=== PATIENT | female | born 1955 | race Caucasian/White ===

== ENCOUNTER 2022-05-13 10:51 | Outpatient (CLI) | payer OTHER, SELFPAY ==
--- OUTSIDE RECORDS SUMMARY | 2022-04-10 09:02 | XMS_ITS | Continuity of Care Document ---
:1955 Author Care Team Providers Name Role Phone MD Zaina Rivera Primary Care Physician MD Judy Perea Admitting Physician Allergies, Adverse Reactions, Alerts Allergen Type Severity Reaction Last Verified Status Updated Adhesive Allergy Mild rash July Yes Active 2020 Penicillin v Allergy Mild rash July Yes Active 2020 Tetanus toxoid Allergy Unknown auto immune July Yes Act anam 2020 Lisinopril Allergy Moderate cough July Yes Active 2020 Sulfa drugs Allergy Mild rash July Yes Active 2020 Social History Smoking Status Status Start Date End Date Date of Observat ion Never smoked tobacco July 5:49pm (finding) Additional Data Assigned Sex Female Problems Active Problems Medical Problem Onset Date Status Appendicitis Active Hypertension Active COVID-19 long hauler Active Obesity Active Perforated appendicitis Active Abdominal pain Active S/P laparoscopic appendectomy Active Medications Medication Status Dose Units Route Directions Qty Days Start End Ins tructions Date Date Acetaminophen Active 1 TAB PO Every 4 06 August /Hydrocodone Hours as Bitart needed 2020 (Hydrocodone- 4:37pm Acetaminophen ) 5 Mg/325 Mg TAB Allopurinol Active 100 MG PO Daily taperin g up to 300mg daily Aspirin Active 81 MG PO Daily Fluoxetine Active 40 MG PO Daily Hcl (Fluoxetine Hydrochloride ) 20 Mg CAP Gabapentin Active 600 MG PO Three Times A Day Hyoscyamine Active 1-2 TAB SL Every -6 06 August P O/SL Sulfate Hours as , for abdom inal cramping needed 2020 8:41pm Losartan Active 100 MG PO Daily Potassium Metoprolol Active 25 MG PO Daily Succinate (Metoprolol Succinate Er) 25 Mg TABCR Multivitamins Active 1 TAB PO Daily (Multivitamin /Minerals) TAB Chlorthalidon Disconti 25 MG PO Octobe e nued r 2020 8:27am Cyclobenzapri Disconti 1 TABLET PO Three Times 20 Oc ugo PRN MUSCLE ne Hcl nued A Day r 9, SPASM (Flexeril) 10 2020 Mg TAB 8:27am Metoprolol Disconti 50 MG PO Daily 30 Octobe Succinate nued r 9, (Toprol Xl) 2020 50 Mg TABCR 8:27am Naproxen Disconti 500 MG PO Octobe (Naprosyn) nued r 9, 500 Mg TAB 2020 8:27am Oxycodone-Asp Disconti 1 EA PO Octobe irin nued r 9, (Percodan) 1 2020 Ea TAB 8:27am Valsartan Disconti 40 MG PO Octobe (Diovan) 40 nued r 9, Mg TAB 2020 8:27am Advance Directives Advance Directive Response Recorded Date/Time Has patient completed a No July 31 5:49pm Health Care Directive? Insurance Providers Guarantor Eliana Naranjo Address [id number] [facility] [address] Contact Info. Home Phone: Payer Policy Id Coverage Id Subscriber's Subscriber Id Effective E xpiration Name Date Date Blue [id number] Eliana Naranjo [id number] [facility] [id number] Plan of Treatment Future Tests Future scheduled test information is unavailable Pending Tests Pending diagnostic test information is unavailable Future Visits Future appointment information is unavailable Referrals to Other Providers Reason for Referral Start Provider Provider Contact Provider Address Referral Date Information Eula Rivera Phone: [facility] Debbie Mahajan MD [address] [place] [address] [facility] [phone] Future Procedures Future procedure information is unavailable Future Medications Future medication information is unavailable Patient Instructions Ciprofloxacin (By mouth) Hydrocodone/Acetaminophen (By mouth) Metronidazole (By mouth) Laparoscopic Appendectomy (DC)
--- NOTE | 2022-05-13 11:30 | CRLHL7_ITS ---
For Patients: As a result of the Cures Act, medical imaging exams and procedure reports are released immediately into your electronic medical record. You may view this report before your referring provider. If you have questions, please contact your health care provider. BILATERAL MAMMOGRAM WITH COMPUTER-AIDED DETECTION AND TOMOSYNTHESIS TECHNIQUE: CC and MLO views were obtained. These mammographic images have been obtained using full-field digital technique. These mammographic images were interpreted with the benefit of computer-aided detection. Breast tomosynthesis was used in this interpretation. COMPARISON FILM: 04/24/21, 10/19/19, 08/02/18. FINDINGS: The breasts are heterogeneously dense, which may obscure small masses. IMPRESSION: There is no radiographic evidence for malignancy. ASSESSMENT: BI-RADS Category 2: Benign RECOMMENDATION: Routine screening mammogram in 1 year. A lay language report of this examination will be provided to the patient. FLAVIA THAKKAR M.D. Diagnostic/Nuclear Medicine Radiologist [email or web address] Transcribed: 4:[address]/Dictated by: Flavia Thakkar MD @ 05/14/2022 8:47:00 AM (Electronically Signed)
== END 2022-05-13 10:52 | disposition home or self-care (01) ==
LOC: MAMMO 10:53
PROVIDERS: Visit Provider Family Medicine
DX: Z12.31 Encounter for screening mammogram for malignant neoplasm of breast (principal); R92.8 Other abnormal and inconclusive findings on diagnostic imaging of breast
CPT/HCPCS: 77063; 77067

== ENCOUNTER 2022-07-15 10:45 | Outpatient (RCR) | payer OTHER, SELFPAY | END 2023-01-11 23:59 | disposition home or self-care (01) | LOC: CCIC 10:45 | PROVIDERS: Visit Provider Internal Medicine Hematology & Oncology | DX: Z15.01 Genetic susceptibility to malignant neoplasm of breast (principal); Z79.810 Long term (current) use of selective estrogen receptor modulators (SERMs) | CPT/HCPCS: 99202; 99205 ==

== ENCOUNTER 2022-10-26 07:00 | Outpatient (CLI) | payer OTHER, SELFPAY ==
--- NOTE | 2022-10-26 07:15 | CRLHL7_ITS ---
For Patients: As a result of the Century Cures Act, medical imaging exams and procedure reports are released immediately into your electronic medical record. You may view this report before your referring provider. If you have questions, please contact your health care provider. BILATERAL BREAST MRI WITHOUT AND WITH GADOLINIUM, 10/26/2022 CLINICAL HISTORY: At increased risk for breast cancer due to a family history of breast cancer in her mother diagnosed at age 60 and grandmother in her 60s. No current breast related concerns. INDICATION FOR BREAST MRI: High-risk screening breast MRI. COMPARISON STUDIES: Mammograms 05/13/2022 and 04/24/2021. No prior breast MRIs are available for comparison. CONTRAST: 15 mL dotarem. TECHNIQUE: The patient was positioned prone using a breast coil. Multiple imaging sequences were obtained using 1-1.5 mm thick slices with no gap. The image sequences include T2-weighted STIR in the axial plane, T1-weighted nonfat-saturated gradient echo in the axial plane, pre- and post-contrast T1-weighted FLASH 3D with fat suppression in the axial plane, and T1-weighted FLASH high resolution 3D with fat suppression in the sagittal plane. Image post-processing was performed on a Augment workstation. Complex 3D rendering including maximum intensity projections (MIPS) and volumetric renderings were obtained to optimize visualization of the extent of pathology and relationship to the nipple, skin, and chest wall. This aids in determining feasibility of breast conservation surgery. Subtraction, multiplanar reconstruction, mean curve determination, and angiogenesis mapping were also performed. The study was technically adequate. FINDINGS: Amount of Fibroglandular Tissue: Scattered fibroglandular tissue. Breast Background Enhancement: Moderate. RIGHT Breast: There is no suspicious mass or enhancement within the breast. LEFT Breast: There is no suspicious mass or enhancement within the breast. Lymph Nodes: No abnormal morphology lymph nodes. IMPRESSIONS AND RECOMMENDATIONS: 1. No MRI evidence of malignancy in either breast. 2. Annual screening mammography is recommended. If clinically indicated, continued screening breast MRI may also be performed, staggered at six-month intervals with screening mammography. BI-RADS Category 1: Negative Dictated by Sakshi Sanchez MD @ 11/03/2022 9:21:06 AM JR/Dictated by: Sakshi Sanchez MD @ 11/03/2022 9:21:00 AM (Electronically Signed)
== END 2022-10-26 07:01 | disposition home or self-care (01) ==
LOC: MRI 07:01
PROVIDERS: PCP Family Medicine; Visit Provider Surgery
DX: Z12.31 Encounter for screening mammogram for malignant neoplasm of breast (principal); Z15.01 Genetic susceptibility to malignant neoplasm of breast
CPT/HCPCS: 77049; A9575

== ENCOUNTER 2023-01-18 14:34 | Outpatient (RCR) | payer OTHER, SELFPAY | END 2023-07-17 23:59 | disposition home or self-care (01) | LOC: CCIC 14:34 | PROVIDERS: PCP Family Medicine; Visit Provider Internal Medicine Hematology & Oncology | DX: Z15.01 Genetic susceptibility to malignant neoplasm of breast (principal); Z79.810 Long term (current) use of selective estrogen receptor modulators (SERMs) | CPT/HCPCS: 99212; 99213 ==

== ENCOUNTER 2023-04-05 13:17 | Outpatient (CLI) | payer OTHER, SELFPAY | END 2023-04-05 13:18 | disposition home or self-care (01) | LOC: NFLDUCREF 13:23 | PROVIDERS: PCP Family Medicine; Visit Provider Nurse Practitioner Family | DX: Z11.9 Encounter for screening for infectious and parasitic diseases, unspecified (principal); W57.XXXA Bitten or stung by nonvenomous insect and other nonvenomous arthropods, initial encounter | CPT/HCPCS: 86618 ==

== ENCOUNTER 2023-05-19 11:18 | Outpatient (CLI) | payer OTHER, SELFPAY ==
--- NOTE | 2023-05-19 11:30 | CRLHL7_ITS ---
For Patients: As a result of the Century Cures Act, medical imaging exams and procedure reports are released immediately into your electronic medical record. You may view this report before your referring provider. If you have questions, please contact your health care provider. BILATERAL SCREENING MAMMOGRAM WITH COMPUTER-AIDED DETECTION AND TOMOSYNTHESIS TECHNIQUE: CC and MLO views were obtained. These mammographic images have been obtained using full-field digital technique. These mammographic images were interpreted with the benefit of computer-aided detection. Breast Tomosynthesis was used in this interpretation. COMPARISON FILM: 05/13/22, 04/24/21, 10/19/19. FINDINGS: The breasts are heterogeneously dense, which may obscure small masses IMPRESSION: There is no radiographic evidence for malignancy. ASSESSMENT: BI-RADS Category 2: Benign RECOMMENDATION: Routine screening mammogram in 1 year. A lay language report of this examination will be provided to the patient. Tigre Hankins M.D. Diagnostic Radiologist [email or web address] DSM/lou PT/Dictated by: Tigre Hankins MD @ 05/19/2023 12:02:00 PM (Electronically Signed)
== END 2023-05-19 11:19 | disposition home or self-care (01) ==
LOC: MAMMO 11:20
PROVIDERS: PCP Family Medicine; Visit Provider Surgery
DX: Z12.31 Encounter for screening mammogram for malignant neoplasm of breast (principal); R92.2 Inconclusive mammogram
CPT/HCPCS: 77063; 77067

== ENCOUNTER 2023-10-14 06:49 | Emergency (ER) | payer OTHER, SELFPAY ==
[2023-10-14 06:53] VITALS: BP 176/101; PULSE 85; RESP 20; TEMP 36.8; O2SAT 99; BMI 44.3
--- NOTE | 2023-10-14 07:17 | ED_ITS ---
HPI - General Adult General Date Seen: 10/14/23 Chief complaint: Eye Problems Stated complaint: swollen and pus filled eyes Source: patient Mode of arrival: ambulatory Limitations: no limitations History of Present Illness HPI narrative: Patient is a 68-year-old woman who says she noticed around midnight that her eyes were puffy and red and irritated and she had some purulent drainage/shira ering. No vision complaints. She does not wear contact lenses, no welding or metal grinding. 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 She is rubbing repeatedly at her eyes with a washcloth. Related Data Home Medications Medication Instructions Recorded Confirmed allopurinol 100 mg tablet 200 mg PO QDAY 07/15/22 10/14/23 amlodipine 5 mg tablet 5 mg PO QDAY 07/15/22 10/14/23 cholecalciferol (vitamin D3) 125 125 mcg PO QDAY 07/15/22 10/14/23 mcg (5,000 unit) capsule duloxetine 60 mg capsule,delayed 60 mg PO DAILY 07/15/22 10/14/23 release gabapentin 600 mg tablet 600 mg PO .qhs 07/15/22 10/14/23 losartan 100 mg tablet 100 mg PO QDAY 07/15/22 10/14/23 metoprolol succinate 50 mg 50 mg PO QDAY 07/15/22 10/14/23 tablet,extended release 24 hr multivitamin 1 tab PO QAM 07/15/22 10/14/23 valsartan 40 mg tablet 40 mg PO QDAY 07/15/22 10/14/23 semaglutide (weight loss) 1 mg/0.5 1 mg subcut Q7D 01/18/23 10/14/23 mL subcutaneous pen injector (Wegovy) tollovid 4 cap PO DAILY Long covid 04/05/23 10/14/23 Previous Rx's Medication Instructions Recorded tamoxifen 20 mg tablet 20 mg PO QDAY #100 tabs 07/15/22 Allergies Allergy/AdvReac Type Severity Reaction Status Date / Time lisinopril Allergy Intermediate Cough Verified 01/18/23 14:51 Sulfa (Sulfonamide Allergy Intermediate Rash Verified 10/14/23 06:56 Antibiotics) adhesive Allergy Mild Rash Verified 01/18/23 14:51 penicillin V Allergy Mild Rash Verified 01/18/23 14:51 Tetanus toxoid Allergy Unknown Auto immune Uncoded 04/23/22 13:02 PFSH PFS Surgical History Status post laparoscopic appendectomy ?Z90.49 - Acquired absence of other specified parts of digestive tract (ICD- 10) Social History Smoking Status: Never smoker Do you use any of these nicotine containing products: None How often do you have a drink containing alcohol: never AUDIT-C Alcohol total score: 0 Non-prescribed substance use: denies use Exam Narrative: Exam Narrative: Vital signs reviewed, blood pressure is elevated. In general, alert, nontoxic woman. Eyes: Lids are somewhat erythematous although this appears to be just because she has been rubbing her eyes so vigorously. No warmth. Conjunctiva are injected and mildly edematous bilaterally. I do not see purulent discharge but again she has been wiping her eyes repeatedly. ENT: Mucous membranes are moist. Throat normal. Skin: Warm dry well perfused. No rash or lesion. Const: Vital Signs, click to edit/add: Vital Signs - 24 hr 10/14/23 06:53 Temperature 98.3 F Pulse Rate [Right Pulse Oximeter] 85 Respiratory Rate 20 Blood Pressure [Ri ght Upper Arm] 176/101 H Pulse Oximetry 99 Oxygen Delivery Me thod Room Air Documenting provider has reviewed patient's vital signs: yes Course Course ED Course: Exam is consistent with conjunctivitis, given that she is reporting purulent drainage unless suspicions of an allergic conjunctivitis, abrupt onset and prominent inflammation suggest this may be bacterial rather than viral. Will go ahead and prescribe antibiotic drops, should note improvement over the next couple of days. For worsening or new symptoms, see an eye doctor. Vital Signs Vital signs: Initial Vital Signs Temperature 98.3 F 10/14/23 06:53 Temperature Source Temporal Artery Scan 10/14/23 06:53 Pulse Rate 85 10/14/23 06:53 Respiratory Rate 20 10/14/23 06:53 Blood Pressure 176/101 H 10/14/23 06:53 Blood Pressure Mean 126 H 10/14/23 06:53 Blood Pressure Position Sitting 10/14/23 06:53 Pulse Oximetry 99 10/14/23 06:53 Oxygen Delivery Method Room Air 10/14/23 06:53 Vital Signs Temperature 98.3 F 10/14/23 06:53 Pulse Rate 85 10/14/23 06:53 Respiratory Rate 20 10/14/23 06:53 Blood Pressure 176/101 H 10/14/23 06:53 Pulse Oximetry 99 10/14/23 06:53 Oxygen Delivery Method Room Air 10/14/23 06:53 Temperature 98.3 F 10/14/23 06:53 Pulse Rate 85 10/14/23 06:53 Respiratory Rate 18 10/14/23 07:36 Blood Pressure 143/80 H 10/14/23 07:36 Pulse Oximetry 97 10/14/23 07:36 Oxygen Delivery Method Room Air 10/14/23 07:36 Discharge Plan Discharge Clinical Impression: Conjunctivitis Patient Disposition: Home, Self-Care Condition: Stable Instructions: Conjunctivitis (ED) Additional Instructions: Eyedrops as prescribed. If no improvement over the next couple of days, or for worsening symptoms at any time, you should see an eye doctor. Ok to return to work when symptoms are improved. Prescriptions: No Action valsartan 40 mg tablet 40 mg PO QDAY metoprolol succinate 50 mg tablet extended release 24 hr 50 mg PO QDAY duloxetine 60 mg capsule,delayed release(DR/EC) 60 mg PO DAILY Patient Comments: TAKE ONE CAPSULE BY MOUTH ONCE DAILY allopurinol 100 mg tablet 200 mg PO QDAY Patient Comments: TAKE TWO TABLETS BY MOUTH EVERY DAY amlodipine 5 mg tablet 5 mg PO QDAY Patient Comments: TAKE ONE TABLET BY MOUTH ONCE DAILY losartan 100 mg tablet 100 mg PO QDAY Patient Comments: TAKE ONE TABLET BY MOUTH ONCE DAILY gabapentin 600 mg tablet 600 mg PO .qhs Patient Comments: TAKE ONE TABLET BY MOUTH THREE TIMES A DAY multivitamin Tablet 1 tab PO QAM cholecalciferol (vitamin D3) 125 mcg (5,000 unit) capsule 125 mcg PO QDAY tamoxifen 20 mg tablet 20 mg PO QDAY Qty: 100 3RF Wegovy 1 mg/0.5 mL pen injector 1 mg subcut Q7D tollovid 4 cap PO DAILY Follow Up/Referrals: Debbie Rivera MD [Primary Care Provider] - Stand Alone [facility]: [facility] Info Instructions
[2023-10-14 07:36] VITALS: BP 143/80; RESP 18; O2SAT 97
== END 2023-10-14 07:51 | disposition home or self-care (01) ==
LOC: ED 07:30
PROVIDERS: Emergency Provider Emergency Medicine; PCP Family Medicine
DX: H10.9 Unspecified conjunctivitis (principal)
CPT/HCPCS: 99283

== ENCOUNTER 2023-11-24 07:59 | Outpatient (CLI) | payer OTHER, SELFPAY ==
--- OUTSIDE RECORDS SUMMARY | 2023-11-24 08:02 | XMS_ITS | Encounter Summary ---
Author Name Unknown Organization [facility] Address [address] [place] [address] Phone Care Team Providers Care Scale Assembly Set Up Worker Name Role Phone Bianca Cunningham PA-C Unavailable [phone] Audra Frye PT Unavailable [phone] Reason for Visit * Prior Authorization (Routine) - Closed Specialty Diagnoses / Procedures Referred By Joselo t Referred To Contact [facility] Diagnoses Covid [address] [address] Referral ID Status Reason Start Date Expiration Date Visits Re quested Visits Authorized [id number] Closed 01/27/2023 10/17/2023 99 99 Encounter Details Date Type Department Care Team (Late st Contact Info) Description 03/10/2023 10:00 AM CDT Telemedicine [facility] [address] [place] [address] Long COVID (Primary Dx); Social isolation Discharge Disposition: Discharged to home or self care (routine discharge) Social History Tobacco Use Types Packs/Day Years Used Date Smoking Tobacco: Never Smokeless Tobacco: Never Alcohol Use Standard Drinks/Week Comments No 0 (1 standard drink = 0.6 oz pur e alcohol) PHQ-2 Answer Date Recorded PHQ-2 Subtotal 1 11/28/2021 Sex and Gender Information Value Date Recorded Sex Assigned at Female 03/08/2022 12:19 PM CDT Gender Identity Female 03/08/2022 12:19 PM CDT Sexual Orientation Straight 03/08/2022 12 :19 PM CDT documented as of this encounter Miscellaneous Notes * Group Note - Khadijah Bearden MD - 03/10/2023 10:00 AM CDT Group Visit Start and End Time: 10:00 AM-12:00 PM Group Powertrain Design Engineer: Khadijah Bearden MD Number of patients in group: 9 Mindful activity: mindfulnes w movement, shaking meditation Group Topic Discussion: Paced movement for helping Long COVID symtoms Group Visit - Mood, Mindfulness and Movement in Long COVID Subjective: Note: Billing is done solely on interaction of MD with this patient. Here for a group medical visit for lifestyle. Today's topic is movement for health, and considerations and strategies for pacing in Long COVID. Discussed together exercise and healthy movement given energy restrictions and post exertional malaise. Discussed what this patient has done through their post COVID journey for movement, and what ispossible to add given their health and situation. Shared research on various forms of exercise for mental clarity, mood, and physical symptom reduction, and immune system. Practiced a shaking in the room with the group for vagal nerve reset/ ventral vagal tone- Also practiced some chi gong movements together - 30 minutes. Patient identified their own barriers, issues and hacks/ solutions re: movement: Eliana shares she has learned how to pace her movement and has no crashing as she stays in her window of tolerance. Objective: NAD, engaged on camera Assessment: 1. Long COVID 2. Social isolation Here for a group medical visit focusing on movement related to Post COVID conditions and symptom and inflammatory tilt tray driver reduction Plan: 1. Options for exercise and World health Organization info on movement w Long COVID /Post COVID are discussed 2. Home practices given and information on exercise for various physical states 3. Discussed importance of pacing, but also of trying new form of exercise 4. Intentions/ SMART goals re:exercises practices are made 5. As inflammation is lower w anti-inflammatory diet, sleep optimization, stress resilience, as well as targeted supplement (TOLLOVID): suggest they try increasing movement gradually in a paced way as able 6. Supplements reviewed: cont 7. Eliana gets support in gradually increasing exercise as capacity increases while staying in her zone. Great work! Telemedicine: This group telemedicine visit is conducted by audio and video technology between the patient and providers. Informed consent was provided during e-check in and signed by the patient. Patient was offered opportunity to ask questions. Patient's Physical Location: Home Provider's Physical Location: Offsite Participants in this Telemedicine Visit other than the patient/provider and other group attendees included: N/A Patient consents to this service: Yes documented in this encounter Plan of Treatment Upcoming Encounters Date Type Department Care Team (Late st Contact Info) Description 02/14/2024 9:30 AM CDT [facility] [address] [address] Stew Davey MD [address] 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 [place], [place] [address] Physical Therapist Physical Therapy 02/27/22 documented as of this encounter
--- OUTSIDE RECORDS SUMMARY | 2023-11-24 08:02 | XMS_ITS | Encounter Summary ---
Author Name Unknown Organization [facility] Address [address] [place] [address] Phone Care Team Providers Care Telephone Operator Receptionist Name Role Phone Bianca Cunningham PA-C Unavailable Audra Frye PT Unavailable Reason for Visit * Prior Authorization (Routine) - Closed Specialty Diagnoses / Procedures Referred By Joselo t Referred To Contact [facility] Diagnoses Covid [address] [address] Referral ID Status Reason Start Date Expiration Date Visits Re quested Visits Authorized [id number] Closed 01/27/2023 10/17/2023 99 99 Encounter Details Date Type Department Care Team (Late st Contact Info) Description 02/03/2023 10:00 AM CDT Telemedicine [facility] [address] [place] [address] Long COVID (Primary Dx); SALIMA (obstructive sleep apnea) Discharge Disposition: Discharged to home or self [...] Orientation Straight 03/08/2022 12 :19 PM CDT COVID-19 Exposure Response Date Recorded In the last 10 days, have yo u been in contact with someone who was confirmed or suspected to have Coronavirus/COVID-19? No / Unsure 01/29/2023 8:11 AM CDT documented as of this encounter Miscellaneous Notes * Group Note - Khadijah Bearden MD - 02/03/2023 10:00 AM CDT Group Visit Start and End Time: 10:00 AM-12:00 PM Group Director Digital Communications: Khadijah Bearden MD Number of patients in group: 13 Mindful activity: soften, soothe, and allow, and also extended outbreath for self regulation Group Topic Discussion: Stress resilience and Long COVID Group Visit Start and End Time: 10:00 AM-12:00 PM Group Director Digital Communications: Khadijah Beadren MD Number of patients in group: 13 Stress and Adrenal health and its impact on long COVID Checked in on stress - sources and response in the body. Discussed stress pre-covid and each persons unique load and response. Shared the RECOVER research that low cortisol as a common finding in people with post covid conditions. Discussed why this may impact the ability to resolve inflammation and help the immune system Each person assessed and shared their score of symptoms of low adrenal function: Eliana shares she had a / symptoms of low adrenal function before the pandemic, and then 03/31 after. She has some work to do, but not as bad as many people with LC Practiced extended outbreath, and for mu-ism and bottom up approach for shifting the vagus nerve. O: Present A: 1. Long COVID 2. SALIMA (obstructive sleep apnea) Here for a GMV on recovering from Long COVID. Today's topic is stress, adrenal health and cortisol,vagus nerve re-balancing P: 1. Participants assessed themselves on a scale of low adrenal/ cortisol function - results above 2. Discussed causes of stress before, during and after covid and impacts on adrenals, and need for cortisol for recovery 3. Discussed polyvagal theory and options for top down and bottom up re-balancing 4. Eliana will continue th therapies she is doing. Supplements to consider - D, turmeric and resveratrol to help in recovery. Will discuss diet w her next week Telemedicine: This group telemedicine visit is conducted by audio and video technology between the patient and providers. Informed consent was provided during e-check in and signed by the patient. Patient was offered opportunity to ask questions. Patient's Physical Location: Home Provider's Physical Location: Offsite Participants in this Telemedicine Visit other than the patient/provider and other group attendees included: N/A TPatient consents to this service: Yes documented in this encounter Plan of Treatment Upcoming Encounters Date Type Department Care Team (Late st Contact Info) Description 02/14/2024 9:30 AM CDT [facility] [address] [address] Stew Davey MD [address] 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 [place], [place] [id number] Physical Therapist Physical Therapy 02/27/22 documented as of this encounter
--- OUTSIDE RECORDS SUMMARY | 2023-11-24 08:02 | XMS_ITS | Encounter Summary ---
Author Name Unknown Organization [facility] Address [address] [place] [address] Phone Care Team Providers Care Window Covering Sales Consultant Name Role Phone Audra Frye PT Unavailable [phone] Reason for Visit * Reason Comments Cough Encounter Details Date Type Department Care Team (Late st Contact Info) Description 10/22/2023 10:41 AM LOADING MACHINE OPERATOR HELPER - 10/22/2023 3:38 PM LOADING MACHINE OPERATOR HELPER Emergency [facility] [address] [facility] [address] [place] [address] Masters, Walker Valdes II, MD [address] [facility] [address] [place], [place] [id number] Patricia Hauser MD [address] [place], [place] [id number] Exacerbation of asthma, unspecified asthma severity, unspecified whether persistent Discharge Disposition: Discharged to home or self [...] suspected to have Coronavirus/COVID-19? No / Unsure 10/22/2023 10:16 AM LOADING MACHINE OPERATOR HELPER documented as of this encounter Last Filed Vital Signs Vital Sign Reading Time Taken Comments Blood Pressure 159/82 10/22/2023 10:12 AM LOADING MACHINE OPERATOR HELPER Pulse 82 10/22/2023 10:12 AM LOADING MACHINE OPERATOR HELPER Temperature 36.7 ??C (98.1 ??F) 10/22/2023 10:[address] Respiratory Rate 18 10/22/2023 10:12 AM LOADING MACHINE OPERATOR HELPER Oxygen Saturation 98% 10/22/2023 12:54 PM LOADING MACHINE OPERATOR HELPER Inhaled Oxygen Concentration - - Weight - - Height - - Body Mass Index - - documented in this encounter Discharge Instructions * Discharge Instructions* Dana Lam PA-C - 10/22/2023 2:23 PM LOADING MACHINE OPERATOR HELPER Take prednisone once a day for four days to treat asthma exacerbation. We gave you your first dose today, so you can start taking it at home tomorrow morning. Start taking your Symbicort inhaler twice a day to help control your asthma exacerbation. Return to the ER if you develop worsening shortness of breath, chest pain, lightheadedness, fever, or if other new or concerning symptoms develop. ING MACHINE OPERATOR HELPER documented in this encounter Medications at Time of Discharge Medication Sig Dispensed Refills Start Date End Date losartan (COZAAR) 100 mg oral tablet Take 1 tablet (100 mg) by mouth daily. tamoxifen (NOLVADEX) 20 mg oral TABS Take 1 tablet (20 mg) by mouth daily. allopurinol (ZYLOPRIM) 100 mg oral TABS Take 2 tablets (200 mg) by mouth daily. amLODIPine (NORVASC) 5 mg oral TABS Take 1 tablet (5 mg) by mouth daily. semaglutide-weight management (WEGOVY) 1 mg/0.5 mL subcutaneous auto-injector pen Inject 0.5 mL (1 mg) subcutaneously every week. 2 mL 01/27/2023 DULoxetine (CYMBALTA) 60 mg oral capsule Take 1 capsule (60 mg) by mouth daily. 30 capsule 02/20/2022 budesonide-formotero l (SYMBICORT) 80-4.5 MCG/ACT inhalation inhaler Inhale 2 puffs by mouth twice daily as needed for shortness of breath. 10.2 g 3 12/21/2019 GABApentin (NEURONTIN) 600 mg oral tablet Take 1 tablet (600 mg) by mouth each evening. metoprolol succinate (TOPROL XL) 50 mg oral tablet 24 HR Take 1 tablet (50 mg) by mouth daily. predniSONE (DELTASONE) 20 mg oral tablet Take 2 tablets (40 mg) by mouth daily for 4 days. 8 tablet 10/22/2023 10/26/2023 documented as of this encounter ED Notes * Dana Lam PA-C - 10/22/2023 11:12 AM CST Images from the original note were not included. ED Provider Note Eliana Solomon : 1955 Sex: female Patient Arrival Date and Time: 10/22/2023 10:09 AM HPI Eliana Solomon is a 68 y.o. female with significant past medical history of mild persistent asthma, HTN, SALIMA who presented to the emergency department with shortness of breath and cough. Patient states she developed conjunctivitis one week ago. She went to the ER and was given eye drops. Since then she has developed cough and shortness of breath. She endorses bilateral rib pain from coughing, and she feels like everything in her chest is tight. She denies fever, headache, n/v, abdominal pain. She has no hx of blood clots, and she has not had recent surgery, bedrest, travel. She has never had to be hospitalized or intubated for asthma exacerbation. She only take symbicort as needed. MDM / ED Course Eliaan Solomon is a 68 y.o. female with significant past medical history of mild persistent asthma, HTN, SALIMA who presented to the emergency department with shortness of breath and cough. Ddx include covid, flu, other viral URI, pneumonia, asthma exacerbation, pulmonary edema, HF, ptx, ACS. Patient is n ormotensive, afebrile, not tachy/bradycardic, and satting 97% on RA with a regular respiratory rateand effort. On examination patient was breathing at a normal respiratory rate, but she appears to be out of breath at the end of sentences. She is able to speak in full sentences. Lungs without wheezing, rhonchi, rales. Heart sounds normal. CBC without leukocytosis or anemia. Chemistry without significant electrolyte abnormality or renal dysfunction. COVID and flu testing is negative. VBG grossly unremarkable. Initial and delta troponins were undetectable. EKG without acute ischemic changes. Low suspicion for ACS. Chest x-ray without acute cardiopulmonary abnormality. A D-dimer was ordered to rule out PEgiven patient's presentation is not entirely consistent with asthma exacerbation (no wheezing or other abnormal lung sounds). This was elevated to 702 it is clinically significant even with age adjustment. A CT PE study was completed and this was negative for PE or other acute pulmonary abnormality. No focal infiltrates concerning for pneumonia. A bedside cardiac ultrasound was performed which francisco wed preserved EF, no pericardial effusion, A line predominance bilaterally. Overall no evidence of heart failure or fluid overload. Patient received 2 DuoNebs and p.o. prednisone for presumed asthma exacerbation. On reexamination patient reported some improvement in her chest tightness and felt she was breathing more comfortably.Patient was visibly breathing more comfortably without increased respiratory effort while speaking.No point during her time in the emergency department did her oxygen saturation go below the mid 90s. She did not require supplemental oxygen at any point that would warrant inpatient admission. Plan to treat for asthma exacerbation with a prednisone burst. Patient was instructed to start taking herSymbicort inhaler twice daily. She was given strict return precautions should she develop worseningshortness of breath, chest pain, fever, syncope, or if other new or concerning symptoms develop. Patient voiced understanding of the plan and had no further questions. Problems Addressed / DDx 1 acute, uncomplicated illness or injury, ??1 or more chronic illnesses with exacerbation, progression, or side effects of treatment, and 1 acute or chronic illness or injurythat poses a threat to life or bodily function Data considered Tests Ordered Risk of patient management Prescription drug management and Decision regarding hospitalization ED Course as of 10/22/23 1744 WedOct 22, [address] CHEST PE PULMONARY ANGIO WITH IV CONTRAST Impression: No pulmonary embolism. No acute abnormality. IMPRESSION 1. Exacerbation of asthma, unspecified asthma severity, unspecified whether persistent Pertinent Physical Exam findings: Physical Exam Vitals and nursing note reviewed. Constitutional: General: She is not in acute distress. Appearance: She is ill-appearing. She is not toxic-appearing. HENT: Head: Normocephalic and atraumatic. Eyes: Extraocular Movements: Extraocular movements intact. Pupils: Pupils are equal, round, and reactive to light. Cardiovascular: Rate and Rhythm: Normal rate and regular rhythm. Heart sounds: Normal heart sounds. Pulmonary: Breath sounds: No stridor. No wheezing, rhonchi or rales. Comments: Increased WOB. Patient able to speak in full sentences but appears winded. Musculoskeletal: General: Normal range of motion. Cervical back: Normal range of motion. Right lower leg: No edema. Left lower leg: No edema. Neurological: General: No focal deficit present. Mental Status: She is alert and oriented to person, place, and time. Psychiatric: Mood and Affect: Mood normal. Behavior: Behavior normal. Dana Lam PA-C, 10/22/2023 5:44 PM ING MACHINE OPERATOR HELPER * Stew Jackson RN - 10/22/2023 10:41 AM CST Bed: B02 Expected date: Expected time: Means of arrival: Comments: T ING MACHINE OPERATOR HELPER * Aimee Reese RN - 10/22/2023 10:15 AM CST Patient comes in with cough and sob. Hx asthma, home inhalers aren't helping. Also c/o rib pain, both sides. ING MACHINE OPERATOR HELPER documented in this encounter Miscellaneous Notes * ED Faculty Note - Walker Santiago II, MD - 10/22/2023 12:22 PM CST Images from the original note were not included. ED Faculty Attestation and Note Eliana Solomon : 1955 Sex: female Patient Arrival Date and Time: 10/22/2023 10:09 AM FACULTY ATTESTATION I Walker Santiago II, MD, personally saw the patient, performed critical or mae portions of the service, and discussed the care with the Advanced Practice Provider. MDM / ED Course Eliana Solomon presented to the emergency department with concern for shortness of breath. 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 Patient states that for the past couple weeks now she has had progressively worsening viral symptoms. Started out with some conjunctivitis. She was seen in emergency department at another facility and prescribed some medications. Despite this, the patient reports that she has had some congestion, cough, and progressively worsening shortness of breath. 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 Patient appears to be moderately dyspneic. Vital signs are without any significant hypoxia though. Patient was worked up for a cardiac cause of the patient's symptoms. Additionally D-dimer was obtained to evaluate for pulmonary embolism. This was found to be slightly elevated. As such, a CT scan of the patient's chest was also performed. This was negative. Onreassessment, the patient had considerable improvement in her symptoms, and states she feels well enough that she is willing to try outpatient management. She did not have any periods of hypoxia during her stay, and I believe that this is appropriate. She was given strict return precautions, and discharged in good and stable condition. Problems Addressed / DDx 1 acute or chronic illness or injury that poses a threat to life or bodilyfunction Data considered Tests Ordered, Additional tests considered but not ordered, and Independent interpretation of studies Risk of patient management Prescription drug management and Decision regarding hospitalization IMPRESSION 1. Exacerbation of asthma, unspecified asthma severity, unspecified whether persistent Walker Santiago II, MD, 10/22/2023 12:22 PM ING MACHINE OPERATOR HELPER * ED Triage Provider Note - Patricia Hauser MD - 10/22/2023 10:17 AM CST Images from the original note were not included. ED Triage Provider Note Eliana Solomon : 1955 Sex: female Patient Arrival Date and Time: 10/22/2023 10:09 AM HPI and Pertinent Exam 68 y.o. female presents for SOB, cough, and bilateral rib pain. PMHx of asthma, has used symbacort inhaler without relief. Evaluated by [facility] 1 week ago for bilateral eye drainage, was prescribed topomycin drops which shes used along side of hot crompresses with improvement. I saw thepatient and performed a medical screening evaluation upon arrival. BP 159/82 (Cuff Location: Left Arm, Patient Position: Sitting) Comment (Cuff Location): forearm Pulse 82 Temp 36.7 ??C (98.1 ??F) (Oral) Resp 18 SpO2 97% Pertinent exam: Non-toxic in general appearance. No respiratory distress. Normal heart rate. Normalconjunctiva. No nasal congestion. GCS 15. Moves all 4 extremities equally. Normal gait. No lower extremity edema. No pallor. Normal mood. Will order EKG, CXR, and labs. DISPOSITION Patient to await placement in Team Center Agus Briggs Tatiana I, Scribe, 10/22/2023 10:17 AM acted as scribe for Patricia Hauser MD in documenting the service or procedure. Signed: Patricia Briggs MD have reviewed the initial documentation provided by the scribe and affirm that it is an accurate restatement of my dictated record of services. Patricia Hauser MD Physician, Emergency Department 10/22/2023 10:17 ING MACHINE OPERATOR HELPER documented in this encounter Plan of Treatment Upcoming Encounters Date Type Department Care Team (Late st Contact Info) Description 02/14/2024 9:30 AM CDT [facility] [address] [address] Stew Davey MD [address] [place] [address] [address] [place] [address] Scheduled Discharge Disposition: Discharged to home or self care (routine discharge) documented as of this encounter Procedures Procedure Name Priority Date/Time Associated Diagnosis Comments ED US CARDIAC STAT 10/22/2023 2:22 PM LOADING MACHINE OPERATOR HELPER PC TROPONIN QUANTITATIVE Timed 10/22/2023 1:41 PM LOADING MACHINE OPERATOR HELPER PC GASES,BLOOD,ANY COMB OF PH,PCD2,PO2,CO2,HCO2 STAT 10/22/2023 1:41 PM LOADING MACHINE OPERATOR HELPER CT CHEST-PULMONARY ANGIO W/IV Routine 10/22/2023 12:50 PM LOADING MACHINE OPERATOR HELPER PC TROPONIN QUANTITATIVE STAT 10/22/2023 10:58 AM LOADING MACHINE OPERATOR HELPER PC ELECTROLYTES PANEL STAT 10/22/2023 10:58 AM LOADING MACHINE OPERATOR HELPER PC LAB CBC W/DIFF & PLT STAT 10/22/2023 10:58 AM LOADING MACHINE OPERATOR HELPER TC LAB BLOOD DRAW BY VENIPUNCTURE Routine 10/22/2023 10:50 AM LOADING MACHINE OPERATOR HELPER EXTRA TUBE - SST Routine 10/22/2023 10:5 0 AM LOADING MACHINE OPERATOR HELPER PC LAB HEME D-DIMEN QUANT Routine 10/22/2023 10:50 AM LOADING MACHINE OPERATOR HELPER XR CHEST 2 VIEWS PA + LAT* Routine 10/22/2023 10:48 AM LOADING MACHINE OPERATOR HELPER ED EKG (12-LEAD) Routine 10/22/2023 10:2 8 AM LOADING MACHINE OPERATOR HELPER COVID/FLU COMBO STAT 10/22/2023 10:16 AM LOADING MACHINE OPERATOR HELPER documented in this encounter Results * ED US CARDIAC (10/22/2023 2:22 PM LOADING MACHINE OPERATOR HELPER) Anatomical Region Laterality Modality Ultrasound Narrative 10/22/2023 3:15 PM LOADING MACHINE OPERATOR HELPER ED Cardiac Ultrasound Body Areas Imaged: Heart and Chest Wall/Lungs Indications:Shortness of Breath/Hypoxia Window: Subxiphoid, Parasternal Short Linch, Parasternal Long Linch, Apical 4-Chamber, and Bilateral Lungs Findings: The left ventricular ejection fraction appears: Grossly preserved No pericardial effusion identified. RV Dilation present/absent: No significant right ventricular dilation appreciated Lung sliding present bilaterally, No pleural effusion, A-line predominance Impression: The left ventricular ejection fraction appears: Grossly preserved No pericardial effusion identified. RV Dilation present/absent: No significant right ventricular dilation appreciated A-Line predominance consistent with normal lung aeration Findings suggest euvolemia Inocencio Novoa MD, 10/22/2023 3:14 PM Inocencio Novoa MD RAD ED ULT * BLOOD GASES (10/22/2023 1:41 PM LOADING MACHINE OPERATOR HELPER) PH Rober 7.35 7.32 - 7.42 [facility] PCO2 Rober 47 41 - 51 mmHG [facility] PO2 Rober 35 25 - 40 mmHG [facility] Bicarb Rober 26 24 - 28 mEq/L [facility] O2 Sat Rober 60 % [facility] Base Exc Rober -0.8 -10.0 - 2.0 mEq/L [facility] Blood Venous 10/22/2023 1:41 PM LOADING MACHINE OPERATOR HELPER 10/22/2023 1:42 PM LOADING MACHINE OPERATOR HELPER Dana Lam PA-C LABORATORY [facility] [place] [address] * TROP 2H (10/22/2023 1:41 PM LOADING MACHINE OPERATOR HELPER) 2H Trop <3 <=14 ng/L [facility] 2H Delta Not Significant Not Significant [facility] Blood 10/22/2023 1:41 PM LOADING MACHINE OPERATOR HELPER 10/22/2023 2:01 PM LOADING MACHINE OPERATOR HELPER Patricia Hauser MD LABORATORY [facility] [place] [id number] * CT CHEST-PULMONARY ANGIO W/IV (10/22/2023 12:50 PM LOADING MACHINE OPERATOR HELPER) Anatomical Region Laterality Modality Chest Computed Tomogra phy 10/22/2023 12:4 7 PM LOADING MACHINE OPERATOR HELPER Impressions 10/22/2023 12:53 PM LOADING MACHINE OPERATOR HELPER Impression: ??No pulmonary embolism. No acute abnormality. Reading Radiologist: Ty Monte Narrative 10/22/2023 12:53 PM LOADING MACHINE OPERATOR HELPER Clinical Indication: Pulmonary embolism (PE) suspected, low to intermediate prob, positive D-dimer ?? Comparison: Report of outside CT from 12/24/2020. Technique: Spiral CT acquisition of the chest was done after the administration of intravenous contrast according to the PE protocol. Postprocessing multiplanar reconstructions were performed. Images are reviewed in lung, soft tissue and bone windows. DOSE: ?Total DLP = 446.8 mGy.cm. ?? Findings: There is good contrast opacification of the pulmonary arterial vasculature. No pulmonary embolus. Mediastinal vasculature is within normal limits. Normal heart size without pericardial effusion. No lymphadenopathy. Unremarkable esophagus. 4 mm nodule in the right lower lobe (image #[id number]). This is also reported on outside CT scan from 12/24/2020. No acute or suspicious pulmonary opacities. No pleural effusion or pneumothorax. Limited evaluation of the upper abdomen shows mildly enlarged liver. Previous cholecystectomy. No acute or suspicious osseous lesion. Mild degenerative changes in the spine and shoulders. Procedure Note Ty Monte MBBS - 10/22/2023 Clinical Indication: Pulmonary embolism (PE) suspected, low tointermediate prob, positive D-dimer Comparison: Report of outside CT from 12/24/2020. Technique: Spiral CT acquisition of the chest was done after theadministration of intravenous contrast according to the PE protocol.Postprocessing multiplanar reconstructions were performed. Images arereviewed in lung, soft tissue and bone windows. DOSE: Total DLP = 446.8 mGy.cm. Findings: There is good contrast opacification of the pulmonary arterialvasculature. No pulmonary embolus. Mediastinal vasculature is within normal limits. Normal heart size withoutpericardial effusion. No lymphadenopathy. Unremarkable esophagus. 4 mm nodule in the right lower lobe (image #86). This is also reported onoutside CT scan from 12/24/2020. No acute or suspicious pulmonary opacities.No pleural effusion or pneumothorax. Limited evaluation of the upper abdomen shows mildly enlarged liver.Previous cholecystectomy. No acute or suspicious osseous lesion. Mild degenerative changes in thespine and shoulders. IMPRESSION Impression: No pulmonary embolism. No acute abnormality. Reading Radiologist: Ty Monte Dana Lam PA-C RAD CT BODY * HS TROPONIN (10/22/2023 10:58 AM LOADING MACHINE OPERATOR HELPER) Pathologist [facility] HS Troponin I <3 <=14 ng/L [facility] Blood 10/22/2023 10:5 8 AM LOADING MACHINE OPERATOR HELPER 10/22/2023 11:32 AM LOADING MACHINE OPERATOR HELPER Narrative [facility] - 10/22/2023 12:03 PM LOADING MACHINE OPERATOR HELPER If ordering as an add-on lab, you must call the lab. Patricia Hauser MD LABORATORY [facility] [address] [address] * CBC WITH PLTS/AUTO DIFF (10/22/2023 10:58 AM LOADING MACHINE OPERATOR HELPER) Pathologist [facility] WBC 9.87 4.00 - 10.00 k/cmm [facility] RBC 4.01 3.90 - 5.20 m/cmm [facility] Hgb 11.8 11.5 - 15.7 g/dL [facility] Hematocrit 36.4 34.0 - 45.0 % [facility] MCV 90.8 80.0 - 100.0 fL [facility] MCH 29.4 25.0 - 32.0 pg [facility] MCHC 32.4 31.0 - 36.0 g/dL [facility] RDW 13.1 11.5 - 14.5 % [facility] Plt 266 150 - 400 k/cmm [facility] MPV 10.5 6.5 - 12.5 fL [facility] Automated Abs Neutrophil 4.96 1.70 - 6.50 k/cmm [facility] Comment:Preliminary ANC, Fin al Result to Follow Abs Immature Granulocyte 0.07 0.00 - 0.09 k/cmm [facility] Comment:The Immature Granulo cyte Absolute count contains metamyelocytes and myelocytes. Abs Neutrophil 4.96 1.70 - 6.50 k/cmm [facility] Abs Lymphocyte 3.73 0.80 - 4.00 k/cmm [facility] Abs Monocyte 0.65 0.20 - 1.00 k/cmm [facility] Abs Eosinophil 0.40 0.00 - 0.60 k/cmm [facility] Abs Basophil 0.06 0.00 - 0.20 k/cmm [facility] Blood 10/22/2023 10:5 8 AM LOADING MACHINE OPERATOR HELPER 10/22/2023 11:32 AM LOADING MACHINE OPERATOR HELPER Patricia Hauser MD LABORATORY Performing Organization Address [facility] Co de Phone Number [facility] [address] [address] * (ABNORMAL) ED CHEMISTRY LABS(NA,K,CL,CO2,GLU,CREAT,CA-IONIZED,ANION GAP) (10/22/2023 10:58 AM LOADING MACHINE OPERATOR HELPER) Sodium 142 135 - 148 mEq/L [facility] Chloride 111(H) 92 - 108 mEq/L [facility] AnGap 10 8 - 16 mEq/L [facility] Glucose 137(H) 70 - 100 mg/dL [facility] ICA, Actual 4.31(L) 4.40 - 5.20 mg/dL [facility] ICA, pH Corrected 4.49 4.40 - 5.20 mg/dL [facility] Creatinine 0.94 0.50 - 1.00 mg/dL [facility] BICARB 21(L) 22 - 26 mEq/L [facility] eGFR (2020 CKD-EPI) 67 >=60 ml/min/1.7 3m2 [facility] Comment: The estimated glomerular filtration rate (eGFR) was calculated using the CKD-EPI 2020 creatinine equation, which does not include race as a factor. This equation is validated in individuals 18 years of age and older, and eGFR is normalized to a body surface area of 1.73m^2. Potassium 3.9 3.5 - 5.3 mEq/L [facility] Blood 10/22/2023 10:5 8 AM LOADING MACHINE OPERATOR HELPER 10/22/2023 11:28 AM LOADING MACHINE OPERATOR HELPER Patricia Hauser MD LABORATORY Performing Organization Address [facility]/ZIP Co de Phone Number [facility] [address] [address] * (ABNORMAL) D-DIMER QUANT (10/22/2023 10:50 AM LOADING MACHINE OPERATOR HELPER) D Dimer 702(H) <=500 ng/mL FEU [facility] Comment:D-dimer values less than or equal to 500 ng/mL Fibrinogen Equivalent Units (FEU) may be used in conjunction with clinical pre-test probability to exclude deep vein thrombosis (DVT) and/or pulmonary embolism (PE). Blood 10/22/2023 10:5 0 AM LOADING MACHINE OPERATOR HELPER 10/22/2023 11:53 AM LOADING MACHINE OPERATOR HELPER Dana Lam PA-C LABORATORY Performing Organization Address City/[facility]/ZIP Co de Phone Number [address] [address] * EXTRA TUBE - SST (10/22/2023 10:50 AM LOADING MACHINE OPERATOR HELPER) SST TUBE Stored [facility] Comment:SST tubes (Serum Sep arator) are stored in the lab for 3 days from the collection date. Blood 10/22/2023 10:5 0 AM LOADING MACHINE OPERATOR HELPER 10/22/2023 11:00 AM LOADING MACHINE OPERATOR HELPER Patricia Hauser MD LABORATORY Performing Organization Address City/[facility]/ZIP Co de Phone Number [address] [address] * EXTRA TUBE - BLUE (10/22/2023 10:50 AM LOADING MACHINE OPERATOR HELPER) BLUE TUBE [facility] Comment:Blue top(Sodium citr ate) tubes are kept for 3 days from the collection date. Blood 10/22/2023 10:5 0 AM LOADING MACHINE OPERATOR HELPER 10/22/2023 11:00 AM LOADING MACHINE OPERATOR HELPER Patricia Hauser MD LABORATORY Performing Organization Address City/[facility]/ZIP Co de Phone Number [address] [address] * XR CHEST 2 VIEWS PA + LAT* (10/22/2023 10:48 AM LOADING MACHINE OPERATOR HELPER) Anatomical Region Laterality Modality Chest Computed Radiogr aphy 10/22/2023 10:5 2 AM LOADING MACHINE OPERATOR HELPER Impressions 10/22/2023 10:53 AM LOADING MACHINE OPERATOR HELPER Impression: Clear lungs. Reading Radiologist: Migue Holguin Narrative 10/22/2023 10:53 AM LOADING MACHINE OPERATOR HELPER Technique: XR CHEST 2 VIEWS PA + LAT* Indication: Cough ?? Comparison: 01/13/2017 Findings: Cardiac silhouette and pulmonary vascularity are stable. Lungs are clear. No pleural effusion or pneumothorax seen. Procedure Note Migue Holguin MBBS - 10/22/2023 Technique: XR CHEST 2 VIEWS PA + LAT* Indication: Cough Comparison: 01/13/2017 Findings: Cardiac silhouette and pulmonary vascularity are stable. Lungsare clear. No pleural effusion or pneumothorax seen. IMPRESSION Impression: Clear lungs. Reading Radiologist: Migue Holguin Patricia Hauser MD RAD XRAY * ED EKG (12-LEAD) (10/22/2023 10:28 AM LOADING MACHINE OPERATOR HELPER) 10/22/2023 10:2 8 AM LOADING MACHINE OPERATOR HELPER Impressions [facility] EKG ORDERS - 10/22/2023 10:28 AM LOADING MACHINE OPERATOR HELPER SINUS RHYTHM NORMAL ECG P-R Interval 178 ms QRS Interval 98 ms QT Interval 378 ms QTC Interval 406 ms P Linch 54 QRS Linch 79 T Wave Linch 58 Narrative Procedure Note Walker Stewart MD - 10/22/2023 IMPRESSION SINUS RHYTHM NORMAL ECG P-R Interval 178 ms QRS Interval 98 ms QT Interval 378 ms QTC Interval 406 ms P Linch 54 QRS Linch 79 T Wave Linch 58 Patricia Hauser MD EKG [facility] EKG ORDERS * COVID/FLU COMBO (10/22/2023 10:16 AM LOADING MACHINE OPERATOR HELPER) COVID-19 Not Detected Not Detected [facility] Flu A Not Detected Not Detected [facility] Flu B Not Detected Not Detected [facility] Nasopharyngeal Swab 10/22/19 10:16 AM LOADING MACHINE OPERATOR HELPER 10/22/2023 10:56 AM LOADING MACHINE OPERATOR HELPER Narrative [facility] - 10/22/2023 11:19 AM LOADING MACHINE OPERATOR HELPER Must be TOY MECHANIC swab. ??COVID and Influenza testing can be completed on the same swab Sending tests other than COVID-19 and Influenza requires additional swab(s) Is the patient a healthcare employee: No Is the patient a Lynda ([facility]) Employee: No Date of symptom onset: 10/20/23 If eligible is the patient interested in medication for treatment of COVID disease: No Patricia Hauser MD LABORATORY [facility] [address] [place] [id number] documented in this encounter Visit Diagnoses Diagnosis Exacerbation of asthma, unspecified asthma severity, unspecified whether persistent- Primary documented in this encounter Administered Medications Inactive Administered Medications - up to 3 most recent administrations Medication Order MAR Action Action Date Dose Rate Site albuterol-ipratropium (DUONEB) 2.5-0.5 mg/3 mL solution 3 mL 3 mL, Nebulization, ONE TIME, 1 dose, On Wed10/22/23 at 1115 Given 10/22/2023 11:25 AM LOADING MACHINE OPERATOR HELPER 3 mL albuterol-ipratropium (DUONEB) 2.5-0.5 mg/3 mL solution 3 mL 3 mL, Nebulization, ONE TIME, 1 dose, On Wed10/22/23 at 1320 Given 10/22/2023 1:40 PM LOADING MACHINE OPERATOR HELPER 3 mL iohexol (OMNIPAQUE) 350 mg/mL injection IV Push, RAD ONE TIME AUTO ACKNOWLEDGE, 1 dose, On Wed10/22/23 at 1255 Given 10/22/2023 12:51 PM LOADING MACHINE OPERATOR HELPER 75 mL Ri ght Arm predniSONE (DELTASONE) tablet 40 mg 40 mg, Oral, ONE TIME, 1 dose, On Wed10/22/23 at 1320 Given 10/22/2023 1:40 PM LOADING MACHINE OPERATOR HELPER 40 mg documented in this encounter Active and Recently Administered Medications Times are shown in LOADING MACHINE OPERATOR HELPER. Scheduled Medication Order 10/20/2023 10/21/2023 10/22/2023 albuterol-ipratropium (DUONEB) 2.5-0.5 mg/3 mL solution 3 mL (COMPLETED) 3 mL, Nebulization, ONE TIME, 1 dose, On Wed10/22/23 at 1115 1125 (Given - Provid er: William Fisher RN) albuterol-ipratropium (DUONEB) 2.5-0.5 mg/3 mL solution 3 mL (COMPLETED) 3 mL, Nebulization, ONE TIME, 1 dose, On Wed10/22/23 at 1320 1340 (Given - Provid er: Zayda Benitez RN) iohexol (OMNIPAQUE) 350 mg/mL injection (COMPLETED) IV Push, RAD ONE TIME AUTO ACKNOWLEDGE, 1 dose, On Wed10/22/23 at 1255 1251 (Given - Provid er: Yung Andrade, RT - Comment: lot- [id number]- 08/12) predniSONE (DELTASONE) tablet 40 mg (COMPLETED) 40 mg, Oral, ONE TIME, 1 dose, On Wed10/22/23 at 1320 1340 (Given - Provid er: Zayda Benitez RN) documented in this encounter Additional Health Concerns Infection Onset Date Last Indicated Resolved Time SARS-CoV-2 Rule-Out 10/22/2023 10/22/2023 10/22/19 24 11:19 AM LOADING MACHINE OPERATOR HELPER Assessment Noted Time PHQ-9 Depression Total Score: 7 11/28/19 22 11:23 AM LOADING MACHINE OPERATOR HELPER PHQ-2 Depression Total Score: 1 11/28/19 22 11:23 AM LOADING MACHINE OPERATOR HELPER documented as of this encounter Care Teams Window Covering Sales Consultant Relationship Specialty Start Date End Date Audra Frye, PT [address] [place] [address] Physical Therapist Physical Therapy 02/27/22 documented as of this encounter
--- OUTSIDE RECORDS SUMMARY | 2023-11-24 08:02 | XMS_ITS | Encounter Summary ---
Author Name Unknown Organization [facility] [place] Address [address] [place] [address] Phone Care Team Providers Care Latexer Name Role Phone Audra Frye PT Unavailable [phone] Stew Davey MD Unavailable Reason for Visit * Reason Onset Date Comments Appointment 10/29/2023 Encounter Details Date Type Department Care Team (Late st Contact Info) Description 10/29/2023 Telephone [facility] [address] [address] Stew Davey MD [address] [place] [address] [address] [place] [address] Appointment Social History Tobacco Use Types Packs/Day Years [...] Coronavirus/COVID-19? No / Unsure 10/22/2023 10:16 AM BRADDER documented as of this encounter Miscellaneous Notes * Telephone Encounter - Vanesa Nuñez PSC - 10/29/2023 10:35 AM BRADDER LVM to schedule an initial appointment for pulmonary clinic with Dr. Davey for early Nov. DER * Telephone Encounter - Vanesa Nuñez PSC - 10/29/2023 10:35 AM BRADDER ----- Message from Raghavendra Jones RN sent at 10/29/2023 8:09 AM BRADDER ----- Regarding: FW: Eliana Alexis, Not sure if this message was sent to you before but could you reach out to her and see if a visit during the first week of November would be fine? Peter Mabry ----- Message ----- From: Raghavendra Jones RN Sent: 10/29/2023 12:00 AM BRADDER To: Raghavendra Jones RN Subject: FW: Eliana Solomon MD Check on appt ----- Message ----- From: Stew Davey MD Sent: 10/27/2023 9:45 PM BRADDER To: Eliana Solomon MD; Pulmonary Triage Pool [facility] Subject: RE: Eliana Monroy_ I am out until November- I can see you the first week of Nov but if that is too long to waitI can see if the clinic can schedule you with someone else earlier Jose L ----- Message ----- From: Eliana Solomon MD Sent: 10/25/2023 5:34 PM BRADDER To: Stew Davey MD Subject: Eliana Solomon MD Dear Dr Davey, You helped me a few years ago with my cough variant asthma and the Symbicort inhaler was sufficientas a PRN until now. I picked up a virus at work at [employer] [facility] [employer] which started as puss streaming from my eyes. It was bad enoughthat I could not see, so I went to the [facility] for care as that is close to where I live. Then I gradually developed a worsening cough that was dry and not productive. It turned into an attack of the cough variant asthma with which I am familiar, but the inhaler did not help at all thistime. I went to our ED at [facility] last Wednesday and they did a thorough work up and started me on prednisone 40 mg a day . The prednisone has only helped a little bit as I am still coughing and tomorrow is the last dose ofprednisone that I have left. I am still coughing which keeps me awake and my ribs are very painful. I tried to schedule an apt with you but you have no openings until months out and they would not allow me to schedule an apt with anyone else . I had a message sent to you asking for help after you had a moment to review my ED records from Wednesday. The supply room clerk said she would send you this message but I am communicating this way too just in case you did not receive her message. Thank you Eliana Solomon MD [phone] DER documented in this encounter Plan of Treatment Upcoming Encounters Date Type Department Care Team (Late st Contact Info) Description 02/14/2024 9:30 AM CDT Office Visit [facility] [address] [address] Stew Davey MD [address] [place] [address] [address] [place] [address] Scheduled Discharge Disposition: Discharged to home or self care (routine discharge) documented as of this encounter Visit Diagnoses Not on filedocumented in this encounter Additional Health Concerns Assessment Noted Time PHQ-9 Depression Total Score: 7 11/28/19 22 11:23 AM BRADDER PHQ-2 Depression Total Score: 1 11/28/19 22 11:23 AM BRADDER documented as of this encounter Care Teams Latexer Relationship Specialty Start Date End Date Audra Frye, PT [address] [place] [address] Physical Therapist Physical Therapy 02/27/22 Stew Davey MD [address] [place] [id number] Pulmonary 10/25/23 documented as of this encounter
--- OUTSIDE RECORDS SUMMARY | 2023-11-24 08:02 | XMS_ITS | Encounter Summary ---
Author Name Unknown Organization [facility] Address [address] [place] [address] Phone Care Team Providers Care Centrifugal Station Operator Name Role Phone Bianca Cunningham PA-C Unavailable [phone] Audra Frye PT Unavailable [phone] Reason for Visit * Prior Authorization (Routine) - Closed Specialty Diagnoses / Procedures Referred By Joselo t Referred To Contact [facility] Diagnoses Covid [address] [address] Referral ID Status Reason Start Date Expiration Date Visits Re quested Visits Authorized [id number] Closed 01/27/2023 10/17/2023 99 99 Encounter Details Date Type Department Care Team (Late st Contact Info) Description 02/24/2023 10:00 AM CDT Telemedicine [facility] [address] [place] [address] Long COVID (Primary Dx); SALIMA (obstructive sleep apnea); Social isolation Discharge Disposition: Discharged to home [...] Miscellaneous Notes * Group Note - Khadijah Beraden MD - 02/24/2023 10:00 AM CDT Group Visit Start and End Time: 10:00 AM-12:00 PM Group Civil Estimator: Khadijah Bearden MD Number of patients in group: 8 Mindful activity: Self compassion Mindful exercise Group Topic Discussion: Group Visit -Mind, Mood, and Microbiome for reducing symptoms of Long COVID Subjective: Note: Billing is done solely on interaction of MD with this patient. Today's topic is living with Long COVID, and brain and mood and microbiome health. Patient scored themselves re: mental clarity/ Brain fog and rated themselves since COVID in the past few weeks on a scale form 1-10 Mood changes since covid and what has worsened, improved, worked for symptom reduction and support. We also discussed digestive issues in long COVID and how to work with each from a lifestyle, mind body and supplement perspective, focusing on long COVID changes in the microbiome. Discussion on specific foods as pre- and probiotics and quality supplements are shared together. Eliana reports that her brain function is about a 5/10 (brain fog rating). Objective: Engaged on camera Assessment: 1. Long COVID 2. SALIMA (obstructive sleep apnea) 3. Social isolation Here for a group medical visit focusing on Mind, Mood, and microbiome in Long COVID Plan: 1. Mind - Group mindfulness practice is shared for improving memory in long COVID - mindful eating - humming, increasing NO, reducing cortisol, .Diet and supplements for supporting brain health are explored 2. Mood - discussed epidemic of mood do w LC and symptoms, and increased care. Participants shared what works for them and what they still need re: mental health care 3. Microbiome health explored - pre-and probiotics, eating 40 different plant based foods weekly, and specific microbiome shifts w LC 4. Eliana is encouraged to work with supplements and foods that helped w butyrate, as well as BDNF (info given to her) to help s cognition. Telemedicine: This group telemedicine visit is conducted by audio and video technology between the patient and providers. Informed consent was provided during e-check in and signed by the patient. Patient was offered opportunity to ask questions. Patient's Physical Location: Home Provider's Physical Location: Onsite at [facility] Participants in this Telemedicine Visit other than the patient/provider and other group attendees included: N/A Total time spent on this visit, including [id number] interaction, review of medical record, and documentation: minutes. Patient consents to this service: Yes documented in this encounter Plan of Treatment Upcoming Encounters Date Type Department Care Team ([facility] st Contact Info) Description 02/14/2024 9:30 AM CDT Office [facility] [address] [address] Stew Davey MD [address] [place] [address] [address] [place] [address] Scheduled Discharge Disposition: Discharged to home or self care (routine discharge) documented as of this encounter Visit Diagnoses Diagnosis Long COVID- Primary SALIMA (obstructive sleep apnea) Obstructive sleep apnea (adult) (pediatric) Social isolation Social maladjustment documented in this encounter Additional Health Concerns Assessment Noted Time PHQ-9 Depression Total Score: 7 11/28/19 22 11:23 AM CEMENT BLOCK MAKER PHQ-2 Depression Total Score: 1 11/28/19 22 11:23 AM CEMENT BLOCK MAKER documented as of this encounter Care Teams Centrifugal Station Operator Relationship Specialty Start Date End Date Bianca Cunningham PA-C [address] [place] [phone] Home Web Operations Lead Family Medicine 03/18/20 Audra Frye, PT [address] [place], [place] [id number] Physical Therapist Physical Therapy 02/27/22 documented as of this encounter
--- OUTSIDE RECORDS SUMMARY | 2023-11-24 08:02 | XMS_ITS | Clinical Summary ---
Author Name Unknown Organization [facility] Address [address] [place] [address] Phone Care Team Providers Care Distributor Sales Manager Name Role Phone Audra Frye PT Unavailable [phone] Stew Davey MD Unavailable [phone] Source Comments [employer] is fully rolled out on [employer]. 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 Medications * Be aware that medications may not be up to date as of this document. Always verify current medications with patient. Medication Sig Dispensed Refills Start Date End Date Status metoprolol succinate (TOPROL XL) 50 mg oral tablet 24 HR Take 1 tablet (50 mg) by mouth daily. Active GABApentin (NEURONTIN) 600 mg oral tablet Take 1 tablet (600 mg) by mouth each evening. Active budesonide-formote rol (SYMBICORT) 80-4.5 MCG/ACT inhalation inhaler Inhale 2 puffs by mouth twice daily as needed for shortness of breath. 10.2 g 3 12/21/2019 Active DULoxetine (CYMBALTA) 60 mg oral capsule Take 1 capsule (60 mg) by mouth daily. 30 capsule 02/20/2022 Active semaglutide-weight management (WEGOVY) 1 mg/0.5 mL subcutaneous auto-injector pen Inject 0.5 mL (1 mg) subcutaneously every week. 2 mL 01/27/2023 Active losartan (COZAAR) 100 mg oral tablet Take 1 tablet (100 mg) by mouth daily. Active tamoxifen (NOLVADEX) 20 mg oral TABS Take 1 tablet (20 mg) by mouth daily. Active allopurinol (ZYLOPRIM) 100 mg oral TABS Take 2 tablets (200 mg) by mouth daily. Active amLODIPine (NORVASC) 5 mg oral TABS Take 1 tablet (5 mg) by mouth daily. Active predniSONE (DELTASONE) 20 mg oral tablet Take 2 tablets (40 mg) by mouth daily for 4 days. 8 tablet 10/22/2023 4 Active Problems Problem Noted Date Diagnosed Date Animal bite 04/26/2019 Hyperlipidemia 08/04/2018 Screening for osteoporosis 07/08/2015 Overview: Normal 06/2015 repeat 5-7 yrs Screening for malignant neoplasm of cervix 06/27 Morbid obesity 04/22/2012 Acne 04/14/2012 Neck pain 11/14/2009 Other dyspnea and respiratory abnormality 2008 FH: osteoporosis 10/30/2008 Dysthymic disorder 09/05/2007 Essential hypertension 09/05/2007 Mild persistent asthma SALIMA (obstructive sleep apnea) Resolved Problems Problem Noted Date Diagnosed Date Resolved Date COVID-19 03/14/2020 03/20/2020 Sore throat 11/03/2017 04/26/2019 Last Assessment & Plan: Several day history of sore throat and mild cough. Lungs clear, no flu symptoms. Rapid strep negative. - Will send on for micro culture. - Supportive care, fluids, rest, humidified air, OTC analgesics, lozenges Encounters Date Type Department Care Team Description 11/02/2023 [facility] [address] [place] [address] Stew Davey MD Appointment 10/29/2023 [facility] [address] [place] [address] Stew Davey MD Appointment 10/22/2023 10:41 AM INSEAM TRIMMER - 10/22/2023 3:38 PM INSEAM TRIMMER Emergency [facility] Emergency Department [address] [place] [address] Masters, MD Murtaza Sharif II, Erin R, MD Exacerbation of asthma, unspecified asthma severity, unspecified whether persistent Discharge Disposition: Discharged to home or self care (routine discharge) 10/22/2023 Travel from Last 3 Months Immunizations Name Administration Dates Next Due COVID-19 MRNA Vaccine (Pfizer/COMIRNATY) suspension 11/08/2020,10/15/2020 Diphtheria and Tetanus Toxoid - Adult 12/13/1999 H1N1 Influenza Vaccine- (Pre servative Free) (18+ YRS); 0.5 ml 08/29/2009 Hepatitis B Vaccine (ENGERIX -B) - Adult 20 Years and older 03/23/2005 INFLUENZA VACCINE - MDV (6 MONTHS-ADULT) 09/05/2015 Influenza Vaccine - (3 Years +) Trivalent 08/17/2016 Influenza Vaccine - Peds (6 - 35 months) Trivalent 07/31/2010 Influenza Vaccine - Trivalent 08/02/2018, 014 Influenza Vaccine, Unspecified 07/23/2014 Tuberculin (PPD) 02/28/2016, 2,05/19/2011,2009,05/28/2009 Family History Medical History Relation Name Comments Asthma Sister Relation Name Status Comments Sister Social History Tobacco Use Types Packs/Day Years [...] Orientation Straight 03/08/2022 12 :19 PM CDT Last Filed Vital Signs Vital Sign Reading Time Taken Comments Blood Pressure 159/82 10/22/2023 10:12 AM INSEAM TRIMMER Pulse 82 10/22/2023 10:12 AM INSEAM TRIMMER Temperature 36.7 ??C (98.1 ??F) 10/22/2023 10:12 AM [facility] Respiratory Rate 18 10/22/2023 10:12 AM INSEAM TRIMMER Oxygen Saturation 98% 10/22/2023 12:54 PM INSEAM TRIMMER Inhaled Oxygen Concentration - - Weight 113.4 kg (250 lb) 02/20/2022 9:02 AM CDT Height 160 cm (5' 3) 01/23/2022 1:24 PM CDT Body Mass Index 44.29 01/23/2022 1:24 PM CDT Plan of Treatment Upcoming Encounters Date Type Department Care Team (Late st Contact Info) Description 02/14/2024 9:30 AM CDT [facility] [address] [address] Stew Davey MD [address] [place] [address] [address] [place] [address] Scheduled Discharge Disposition: Discharged to home or self care (routine discharge) Health Maintenance Due Date Last Done Comments Asthma Action Plan [address] Asthma Control Test [address] CT Colonography 1957 Dental Oral Exam 1957 Dental Prophylaxis 1957 Dental X-Ray: Bitewings 1957 FIT/Cologuard 1957 Hepatitis C Screening 1957 Sigmoidoscopy 1957 iFOB/FIT 1957 Periodontal Maintenance 1971 HEALTH MAINTENANCE PROTOCOL 1976 Hepatitis B Vaccines (2 of 3 - 19+ 3-dose series) 04/20/2005 03/23/2005 TD/TDAP ADULTS 12/13/2009 12/13/1999 Breast Cancer Screening 08/02/2020 08/02/2018 COVID-19 Vaccine (3 - Pfizer risk series) 12/06/2020 11/08/2020, 10/15/2020 Osteoporosis Screening (Dexa Scan) 2022 Depression Management 05/28/2022 11/28/2021 PREVENTATIVE VISIT 02/02/2023 02/02/2022, 08/07/2020 INFLUENZA VACCINE 05/18/2023 07/14/2022, , 08/07/2020, Additional history exists Colonoscopy 12/07/2024 12/07/2014, 11/10/2011 Colorectal Cancer Screening 12/07/2024 Lipid Screening 03/03/2028 03/03/2023, 04/05/2022, 08/07/2020, Additional history exists Cervical Cancer Screening Age 30-65 Discontinued 08/08/2019 PNEUMOCOCCAL IMMUNIZATION > 65 YRS Completed 03/03/2023 HIB Aged Out No longer eligi ble based on patient's age to complete this topic RSV Infant Immunoglobulin Aged Out No longer eligible based on patient's age to complete this topic Procedures Procedure Name Priority Date/Time Associated Diagnosis Comments ED US CARDIAC STAT 10/22/2023 2:22 PM INSEAM TRIMMER PC GASES,BLOOD,ANY COMB OF PH,PCD2,PO2,CO2,HCO2 STAT 10/22/2023 1:41 PM INSEAM TRIMMER PC TROPONIN QUANTITATIVE Timed 10/22/2023 1:[address] CHEST-PULMONARY ANGIO W/IV Routine 10/22/2023 12:50 PM INSEAM TRIMMER PC TROPONIN QUANTITATIVE STAT 10/22/2023 10:58 AM INSEAM TRIMMER PC LAB CBC W/DIFF & PLT STAT 10/22/2023 10:58 AM INSEAM TRIMMER PC ELECTROLYTES PANEL STAT 10/22/2023 10:58 AM INSEAM TRIMMER PC LAB HEME D-DIMEN QUANT Routine 10/22/2023 10:50 AM INSEAM TRIMMER EXTRA TUBE - SST Routine 10/22/2023 10:5 0 AM INSEAM TRIMMER TC LAB BLOOD DRAW BY VENIPUNCTURE Routine 10/22/2023 10:50 AM INSEAM TRIMMER XR CHEST 2 VIEWS PA + LAT* Routine 10/22/2023 10:48 AM INSEAM TRIMMER ED EKG (12-LEAD) Routine 10/22/2023 10:2 8 AM INSEAM TRIMMER COVID/FLU COMBO STAT 10/22/2023 10:16 AM INSEAM TRIMMER PANEL LIPID Routine 03/03/2023 3:02 PM CDT PAP TEST Routine 08/08/2019 1:26 PM CDT from Last 3 Months or Most Recently Relevant to Health Maintenance Results * ED US CARDIAC (10/22/2023 2:22 PM INSEAM TRIMMER) Anatomical Region Laterality Modality Ultrasound Narrative 10/22/2023 3:15 PM INSEAM TRIMMER ED Cardiac Ultrasound Body Areas Imaged: Heart and Chest Wall/Lungs Indications:Shortness of Breath/Hypoxia Window: Subxiphoid, Parasternal Short Palisades, Parasternal Long Palisades, Apical 4-Chamber, and Bilateral Lungs Findings: The [...] Inocencio Novoa MD RAD ED ULT * TROP 2H (10/22/2023 1:41 PM INSEAM TRIMMER) 2H Trop <3 <=14 ng/L [facility] 2H Delta Not Significant Not Significant [facility] Blood 10/22/2023 1:41 PM INSEAM TRIMMER 10/22/2023 2:01 PM INSEAM TRIMMER Patricia Hauser MD LABORATORY [facility] [address] [address] * BLOOD GASES (10/22/2023 1:41 PM INSEAM TRIMMER) PH Rober 7.35 7.32 - 7.42 [facility] PCO2 Rober 47 41 - 51 mmHG [facility] PO2 Rober 35 25 - 40 mmHG [facility] Bicarb Rober 26 24 - 28 mEq/L [facility] O2 Sat Rober 60 % [facility] Base Exc Rober -0.8 -10.0 - 2.0 mEq/L [facility] Blood Venous 10/22/2023 1:41 PM INSEAM TRIMMER 10/22/2023 1:42 PM INSEAM TRIMMER Dana Lam PA-C LABORATORY [facility] [address] [address] * CT CHEST-PULMONARY ANGIO W/IV (10/22/2023 12:50 PM INSEAM TRIMMER) Anatomical Region Laterality Modality Chest Computed Tomogra phy 10/22/2023 12:4 7 PM INSEAM TRIMMER Impressions 10/22/2023 12:53 PM INSEAM TRIMMER Impression: ??No pulmonary embolism. No acute abnormality. Reading Radiologist: Ty Monte Narrative 10/22/2023 12:53 PM INSEAM TRIMMER Clinical Indication: Pulmonary embolism (PE) suspected, low [...] BODY * HS TROPONIN (10/22/2023 10:58 AM INSEAM TRIMMER) [facility] HS Troponin I <3 <=14 ng/L [facility] Blood 10/22/2023 10:5 8 AM INSEAM TRIMMER 10/22/2023 11:32 AM INSEAM TRIMMER Narrative [facility] - 10/22/2023 12:03 PM INSEAM TRIMMER If ordering as an add-on lab, you must call the lab. Patricia Hauser MD LABORATORY [facility] [address] [place] [address] * (ABNORMAL) ED CHEMISTRY LABS(NA,K,CL,CO2,GLU,CREAT,CA-IONIZED,ANION GAP) (10/22/2023 10:58 AM INSEAM TRIMMER) Pathologist [facility] Sodium 142 135 - 148 mEq/L [facility] Chloride 111(H) 92 - 108 mEq/L [facility] AnGap 10 8 - 16 mEq/L [facility] Glucose 137(H) 70 - 100 mg/dL [facility] ICA, Actual 4.31(L) 4.40 - 5.20 mg/dL [facility] ICA, pH Corrected 4.49 4.40 - 5.20 mg/dL [facility] Creatinine 0.94 0.50 - 1.00 mg/dL [facility] BICARB 21(L) 22 - 26 mEq/L [facility] eGFR (2020 CKD-EPI) 67 >=60 ml/min/1.7 3m2 [facility] Comment: The estimated glomerular filtration rate (eGFR) was calculated using the CKD-EPI 2020 creatinine equation, which does not include race as a factor. This equation is validated in individuals 18 years of age and older, and eGFR is normalized to a body surface area of 1.73m^2. Potassium 3.9 3.5 - 5.3 mEq/L [facility] Blood 10/22/2023 10:5 8 AM INSEAM TRIMMER 10/22/2023 11:28 AM INSEAM TRIMMER Patricia Hauser MD LABORATORY [facility] [address] [place] [address] * CBC WITH PLTS/AUTO DIFF (10/22/2023 10:58 AM INSEAM TRIMMER) WBC 9.87 4.00 - 10.00 k/cmm [facility] RBC 4.01 3.90 - 5.20 m/cmm [facility] Hgb 11.8 11.5 - 15.7 g/dL [facility] Hematocrit 36.4 34.0 - 45.0 % [facility] MCV 90.8 80.0 - 100.0 fL [facility] MCH 29.4 25.0 - 32.0 pg [facility] MCHC 32.4 31.0 - 36.0 g/dL [facility] RDW 13.1 11.5 - 14.5 % [facility] Plt 266 150 - 400 k/cmm [facility] MPV 10.5 6.5 - 12.5 fL [facility] Automated Abs Neutrophil 4.96 1.70 - 6.50 k/cmm [facility] Comment:Preliminary ANC, Fin al Result to Follow Abs Immature Granulocyte 0.07 0.00 - 0.09 k/cmm [facility] Comment:The Immature Granulo cyte Absolute count contains metamyelocytes and myelocytes. Abs Neutrophil 4.96 1.70 - 6.50 k/cmm [facility] Abs Lymphocyte 3.73 0.80 - 4.00 k/cmm [facility] Abs Monocyte 0.65 0.20 - 1.00 k/cmm [facility] Abs Eosinophil 0.40 0.00 - 0.60 k/cmm [facility] Abs Basophil 0.06 0.00 - 0.20 k/cmm [facility] Blood 10/22/2023 10:5 8 AM INSEAM TRIMMER 10/22/2023 11:32 AM INSEAM TRIMMER Patricia Hauser MD LABORATORY Performing Organization Address [facility] Co de Phone Number [facility] [place] [phone] * EXTRA TUBE - BLUE (10/22/2023 10:50 AM INSEAM TRIMMER) BLUE TUBE [facility] Comment:Blue top(Sodium citr ate) tubes are kept for 3 days from the collection date. Blood 10/22/2023 10:5 0 AM INSEAM TRIMMER 10/22/2023 11:00 AM INSEAM TRIMMER Patricia Hauser MD LABORATORY Performing Organization Address [facility] Co de Phone Number [facility] [address] [address] * EXTRA TUBE - SST (10/22/2023 10:50 AM INSEAM TRIMMER) SST TUBE Stored [facility] Comment:SST tubes (Serum Sep arator) are stored in the lab for 3 days from the collection date. Blood 10/22/2023 10:5 0 AM INSEAM TRIMMER 10/22/2023 11:00 AM INSEAM TRIMMER Patricia Hauser MD LABORATORY Performing Organization Address [facility] Co de Phone Number [facility] [address] [place] [address] * (ABNORMAL) D-DIMER QUANT (10/22/2023 10:50 AM INSEAM TRIMMER) D Dimer 702(H) <=500 ng/mL FEU [facility] Comment:D-dimer values less than or equal to 500 ng/mL Fibrinogen Equivalent Units (FEU) may be used in conjunction with clinical pre-test probability to exclude deep vein thrombosis (DVT) and/or pulmonary embolism (PE). Blood 10/22/2023 10:5 0 AM INSEAM TRIMMER 10/22/2023 11:53 AM INSEAM TRIMMER Dana Lam PA-C LABORATORY [facility] [address] [address] * XR CHEST 2 VIEWS PA + LAT* (10/22/2023 10:48 AM INSEAM TRIMMER) Anatomical Region Laterality Modality Chest Computed Radiogr aphy 10/22/2023 10:5 2 AM INSEAM TRIMMER Impressions 10/22/2023 10:53 AM INSEAM TRIMMER Impression: Clear lungs. Reading Radiologist: Migue Holguin Narrative 10/22/2023 10:53 AM INSEAM TRIMMER Technique: XR CHEST 2 VIEWS PA + [...] * ED EKG (12-LEAD) (10/22/2023 10:28 AM INSEAM TRIMMER) 10/22/2023 10:2 8 AM INSEAM TRIMMER Impressions [facility] CVIS EKG ORDERS - 10/22/2023 10:28 AM INSEAM TRIMMER SINUS RHYTHM NORMAL ECG P-R Interval 178 ms QRS Interval 98 ms QT Interval 378 ms QTC Interval 406 ms P Palisades 54 QRS Palisades 79 T Wave Palisades 58 Narrative Procedure Note Walker Stewart MD - 10/22/2023 IMPRESSION SINUS RHYTHM NORMAL ECG P-R Interval 178 ms QRS Interval 98 ms QT Interval 378 ms QTC Interval 406 ms P Palisades 54 QRS Palisades 79 T Wave Palisades 58 Patricia Hauser MD EKG Performing Organization Address City/[facility] Co de Phone Number [facility] CVIS EKG ORDERS * COVID/FLU COMBO (10/22/2023 10:16 AM INSEAM TRIMMER) COVID-19 Not Detected Not Detected [facility] Flu A Not Detected Not Detected [facility] Flu B Not Detected Not Detected [facility] Nasopharyngeal Swab 10/22/19 10:16 AM INSEAM TRIMMER 10/22/2023 10:56 AM INSEAM TRIMMER Narrative [facility] - 10/22/2023 11:19 AM INSEAM TRIMMER Must be GETTERING FILAMENT MACHINE OPERATOR swab. ??COVID and Influenza testing can be completed on the same swab Sending tests other than COVID-19 and Influenza requires additional swab(s) Is the patient a healthcare employee: No Is the patient a [place] ([facility]) Employee: No Date of symptom onset: 10/20/23 If eligible is the patient interested in medication for treatment of COVID disease: No Patricia Hauser MD LABORATORY Performing Organization Address City/[facility] Co de Phone Number [facility] [address] [address] from Last 3 Months or Most Recently Relevant to Health Maintenance Care Teams Distributor Sales Manager Relationship Specialty Start Date End Date Uday Audra, PT [address] [place] [address] Physical Therapist Physical Therapy 02/27/22 Stew Davey MD [address] [place] [address] Pulmonary 10/25/23
--- OUTSIDE RECORDS SUMMARY | 2023-11-24 08:02 | XMS_ITS | Encounter Summary ---
Author Name Unknown Organization [facility] Address [address] [place] [address] Phone Care Team Providers Care Tenter Name Role Phone Bianca Cunningham PA-C Unavailable [phone] Audra Frye PT Unavailable [phone] Reason for Visit * Prior Authorization (Routine) - Closed Specialty Diagnoses / Procedures Referred By Joselo t Referred To Contact [facility] Diagnoses Covid [id number] [place] [address] Referral ID Status Reason Start Date Expiration Date Visits Re quested Visits Authorized [id number] Closed 01/27/2023 10/17/2023 99 99 Encounter Details Date Type Department Care Team (Late st Contact Info) Description 03/03/2023 10:00 AM CDT Telemedicine [facility] [address] [place] [address] Long COVID (Primary Dx); SALIMA (obstructive sleep apnea); Social isolation; Essential hypertension; Dysthymic disorder Discharge Disposition: Discharged to home or self [...] Group Note - Khadijah Bearden MD - 03/03/2023 10:00 AM CDT Group Visit Start and End Time: 10:00 AM-12:00 PM Group Occupational Health And Safety Officer: Khadijah Bearden MD Number of patients in group: 8 Mindful activity: Body scan and autogenics Group Topic Discussion: Sleep and Confucianism in a setting of Long COVID Group Visit Subjective: Note: Billing is done solely on interaction of MD with this patient. Current and ongoing problems: Discussed sleep: specific issues w long COVID and sleep, need for and, effects of too little sleep, sources of sleep troubles, and ideas for helping achieve a sound sleep - 30 minutes. Patient identified their own sleep issues: Before, during and now in post COVID recovery. They share insights and experiences on what helps and what hinders their sleep: Eliana notes that starting theherbal TOLLOVID she is having more pleasant dreams, and waking more refreshed and she is very grateful. Also discussed herbal supplement TOLLOVID (3 CL protease -I activity) that some are trying - benefits so fare are increased energy and reduced pain, waking earlier, less PEM form some group members. Body scan and autogenics is practiced together - 20 mins. Objective: Engaged, on camera Assessment: 1. Long COVID 2. SALIMA (obstructive sleep apnea) 3. Social isolation 4. Essential hypertension 5. Dysthymic disorder Here for a group medical visit focusing on restoring through optimal sleep related to healing form Long COVID Plan: 1. Questionnaire Sleepiness scale shared w this patient for self rating 2. Modified MBSR Body Scan, practiced together to improve depth of sleep 3. Information on effects of insufficient sleep in the body is given, linking it to adrenal health,and [employer] from long COVID 4. Discussion with group on need for a bedtime routine, sleep hygiene, low Glycemic bedtime snack, regular exercise, and mind body practices as well as other factors to improve sleep group identified. 5. Home practices given and information on Body scan 6. Eliana will continue the TOLLOVID and enjoy the increased energy in the am and pleasant dreams! Telemedicine: This group telemedicine visit is conducted by audio and video technology between the patient and providers. Informed consent was provided during e-check in and signed by the patient. Patient was offered opportunity to ask questions. Patient's Physical Location: Home Provider's Physical Location: Onsite at [facility] Participants in this Telemedicine Visit other than the patient/provider and other group attendees included: N/A Patient consents to this service: Yes documented in this encounter Plan of Treatment Upcoming Encounters Date Type Department Care Team (Late st Contact Info) Description 02/14/2024 9:30 AM CDT [facility] [address] [address] Stew Davey MD [address] [place] [address] [address] [place], [place] [phone] Scheduled Discharge Disposition: Discharged to home or self care (routine discharge) documented as of this encounter Visit Diagnoses Diagnosis Long COVID- Primary SALIMA (obstructive sleep apnea) Obstructive sleep apnea (adult) (pediatric) Social isolation Social maladjustment Essential hypertension Unspecified essential hypertension Dysthymic disorder documented in this encounter Additional Health Concerns Assessment Noted Time PHQ-9 Depression Total Score: 7 11/28/19 22 11:23 AM INTAKE COUNSELOR PHQ-2 Depression Total Score: 1 11/28/19 22 11:23 AM INTAKE COUNSELOR documented as of this encounter Care Teams Tenter Relationship Specialty Start Date End Date Bianca Cunningham PA-C [address] [place] [address] Home Forensic Investigator Family Medicine 03/18/20 Audra Frye, PT [address] [place] [address] Physical Therapist Physical Therapy 02/27/22 documented as of this encounter
--- OUTSIDE RECORDS SUMMARY | 2023-11-24 08:02 | XMS_ITS | Encounter Summary ---
Author Name Unknown Organization [facility] Address [address] [place] [address] Phone Care Team Providers Care Summer Analyst Name Role Phone Audra Frye PT Unavailable [phone] Encounter Details Date Type Department Care Team (Latest Contact Info) Description 10/22/2023 Travel Social History Tobacco Use Types Packs/Day Years [...] Coronavirus/COVID-19? No / Unsure 10/22/2023 10:16 AM CREATIVE RESOURCE MANAGER documented as of this encounter Plan of Treatment Upcoming Encounters Date Type Department Care Team (Late Contact Info) Description 02/14/2024 9:30 AM CDT Office [facility] [address] [place] [address] Stew Davey MD [address] [facility] [address] [place], [place] [address] Scheduled Discharge Disposition: Discharged to home or self care (routine discharge) documented as of this encounter Visit Diagnoses Not on filedocumented in this encounter Additional Health Concerns Infection Onset Date Last Indicated Resolved Time SARS-CoV-2 Rule-Out 10/22/2023 10/22/2023 10/22/19 24 11:19 AM CREATIVE RESOURCE MANAGER Assessment Noted Time PHQ-9 Depression Total Score: 7 11/28/19 22 11:23 AM CREATIVE RESOURCE MANAGER PHQ-2 Depression Total Score: 1 11/28/19 22 11:23 AM CREATIVE RESOURCE MANAGER documented as of this encounter Care Teams Summer Analyst Relationship Specialty Start Date End Date Audra Frye, PT [address] [place] [address] Physical Therapist Physical Therapy 02/27/22 documented as of this encounter
--- OUTSIDE RECORDS SUMMARY | 2023-11-24 08:02 | XMS_ITS | Encounter Summary ---
Author Name Unknown Organization [facility] Address [address] [place] [address] Phone Care Team Providers Care Certified Lactation Educator Name Role Phone Audra Frye PT Unavailable [phone] Stew Davey MD Unavailable [phone] Reason for Visit * Reason Onset Date Comments Appointment 11/02/2023 Encounter Details Date Type Department Care Team (Late st Contact Info) Description 11/02/2023 [facility]phone [facility] [address] [address] Stew Davey MD [address] [place] [address] [address] [place] [address] Appointment Social History Tobacco Use [...] Coronavirus/COVID-19? No / Unsure 10/22/2023 10:16 AM INSURANCE PROCESSOR documented as of this encounter Miscellaneous Notes * Telephone Encounter - Vanesa Nuñez PSC - 11/02/2023 12:07 PM INSURANCE PROCESSOR LVM to schedule an appointment with (2nd attempt) RANCE PROCESSOR * Telephone Encounter - Vanesa Nuñez PSC - 11/02/2023 12:07 PM INSURANCE PROCESSOR ----- Message from Madeline Young sent at 11/02/2023 10:03 AM INSURANCE PROCESSOR ----- Regarding: Cough Variant Asthma Patient: Eliana Solomon : 1955 Caller is requesting:Patient is staff she is provider and Stew Bartlett told her he can get her in to see him November, but he has no availability until January. Patient needs to be seen for Cough Variant Asthma. You can reach the patient at [phone]. Thank you RANCE PROCESSOR documented in this encounter Plan of Treatment Upcoming Encounters Date Type Department Care Team (Late st Contact Info) Description 02/14/2024 9:30 AM CDT Office Visit [facility] [address] [place] [address] Stew Davey MD [address] [place] [address] [address] [place] [address] Scheduled Discharge Disposition: Discharged to home or self care (routine discharge) documented as of this encounter Visit Diagnoses Not on filedocumented in this encounter Additional Health Concerns Assessment Noted Time PHQ-9 Depression Total Score: 7 11/28/19 22 11:23 AM INSURANCE PROCESSOR PHQ-2 Depression Total Score: 1 11/28/19 22 11:23 AM INSURANCE PROCESSOR documented as of this encounter Care Teams Certified Lactation Educator Relationship Specialty Start Date End Date Audra Frye, PT [address] [place] [address] Physical Therapist Physical Therapy 02/27/22 Stew Davey MD [address] [place] [id number] Pulmonary 10/25/23 documented as of this encounter
--- OUTSIDE RECORDS SUMMARY | 2023-11-24 08:02 | XMS_ITS | Encounter Summary ---
Author Name Unknown Organization [facility] Address [address] [place] [address] Phone Care Team Providers Care Datacap Developer Name Role Phone Bianca Cunningham PA-C Unavailable Audra Frye PT Unavailable [phone] Reason for Visit * Prior Authorization (Routine) - Closed Specialty Diagnoses / Procedures Referred By Contsidra t Referred To Contact [facility] Diagnoses Covid [id number] [place] [address] Referral ID Status Reason Start Date Expiration Date Visits Re quested Visits Authorized [id number] Closed 01/27/2023 10/17/2023 99 99 Encounter Details Date Type Department Care Team (Latest Contact Info) Description 02/17/2023 10:00 AM CDT Telemedicine [facility] [address] [place] [address] Long COVID (Primary Dx); SALIMA (obstructive sleep apnea); Social isolation; Dysthymic disorder; Essential hypertension Discharge Disposition: Discharged to home or self [...] Group Note - Khadijah Bearden MD - 02/17/2023 10:00 AM CDT Group Visit Start and End Time: 10:00 AM-12:00 PM Group School Library Media Specialist: Khadijah Bearden MD Number of patients in group: 10 Mindful activity: chi gong for energy Group Topic Discussion: as below Group Visit - Optimizing Energy in Long COVID Subjective: Note: Billing is done solely on interaction of MD with this patient. Group Topic Discussion: Improving mitochondrial function to improve energy and brain fog of Long COVID Pt is here for a group medical visit for lifestyle. Today's topic is improving fatigue of Long COVID, and supporting mitochondrial energy. 30 minute teaching to all members on the factors behind fatigue: inflammation, chronic infection including reactivated viruses and persistent covid, elevated glucose and toxins, mitochondrial dysfunction. We discuss diet, supplements, mind body exercises to help with mitochondria and energy specifically re: physiology of LC. Patient identified questions and issues re: Post COVID fatigue/ energy:Eliana shares that she derived energy form exploring and travelling, finding curiosity and wonder in Long Covid. She now finds adjusting difficult in this journey(understood!). Objective: On camera, engaged in visit Assessment: 1. Long COVID 2. SALIMA (obstructive sleep apnea) 3. Social isolation 4. Dysthymic disorder 5. Essential hypertension Plan: 1. Group mindfulness practice is shared and marcus chi movements for energy practiced 2. Diet and supplements for supporting energy/ mitochondrial health are explored 3. 30 minute power point shared on energy/ mitochndria in a setting of long COVID, individual q's answered as tailored to the participant 4. Discussed diet o help mitochondria is shared: reduction in white, high glycemic processed foods,and increasing grass fed beef salmon, flax seeds, seaweed, walnuts, blueberries and other higher fat low glycemic foods fare explored 5.Supplements and meds reviewed - and additions for mitochondrial health: L carnitine, NAC, melatonin, co Q 10 and more Supplements recommended sent in a my chart message. 6. Eliana is giving herself sleep to heal, and also working with concepts of curiously on this difficult journey though Telemedicine: This group telemedicine visit is conducted [...] [facility] [address] [address] Stew Davey MD [address] [place] [address] [address] [place], [place] [address] Scheduled Discharge Disposition: Discharged to home or self care (routine discharge) documented as of this encounter Visit Diagnoses Diagnosis Long COVID- Primary SALIMA (obstructive sleep apnea) Obstructive sleep apnea (adult) (pediatric) Social isolation Social maladjustment Dysthymic disorder Essential hypertension Unspecified essential hypertension documented in this encounter Additional Health Concerns Assessment Noted Time PHQ-9 Depression Total Score: 7 11/28/19 22 11:23 AM FAST FOOD MANAGER PHQ-2 Depression Total Score: 1 11/28/19 22 11:23 AM FAST FOOD MANAGER documented as of this encounter Care Teams Datacap Developer Relationship Specialty Start Date End Date Bianca Cunningham PA-C [address] [place] [address] Home Pai Gow Manager Family Medicine 03/18/20 Audra Frye, PT [address] [place], [place] [id number] [phone] Physical Therapist Physical Therapy 02/27/22 documented as of this encounter
--- OUTSIDE RECORDS SUMMARY | 2023-11-24 08:02 | XMS_ITS | Encounter Summary ---
Author Name Unknown Organization [facility] Address [address] [place] [address] Phone Care Team Providers Care Service Or Work Dispatcher Chief Name Role Phone Bianca Cunningham PA-C Unavailable [phone] Audra Frye PT Unavailable [phone] Reason for Visit * Prior Authorization (Routine) - Closed Specialty Diagnoses / Procedures Referred By Joselo t Referred To Contact [facility] Diagnoses Covid [address] [address] Referral ID Status Reason Start Date Expiration Date Visits Re quested Visits Authorized [id number] Closed 01/27/2023 10/17/2023 99 99 Encounter Details Date Type Department Care Team (Late st Contact Info) Description 02/10/2023 10:00 AM CDT Telemedicine [facility] [address] [place] [address] Long COVID (Primary Dx); SALIMA (obstructive sleep apnea); Morbid obesity (); Dysthymic disorder; Social isolation; Nutritional counseling Discharge Disposition: Discharged to home or self [...] Group Note - Khadijah Bearden MD - 02/10/2023 10:00 AM CDT Group Visit Start and End Time: 10:00 AM-12:00 PM Group Embedded Software Design Engineer: Khadijah Bearden MD Number of patients in group: 9 Mindful activity: the 7 hungers, Mindful eating Group Topic Discussion: Nutrition for recovery form Long COVID Subjective: Today's topic is optimal nutrition for reducing symptoms of long COVID. Basic food rules are discussed and anti-inflammatory diet re reviewed, including whole 30. Note: Billing is done solely on interaction of MD with this patient. Current and ongoing problems: Discussed diet throughout their life: blocks to eating healthy, options for eating well on a limited budget, commitment to make steps to help w recovery form COVID within their personalized capacity and context- 30 minutes, 1:1 discussion and counseling w each participant. Mind Body exercise on meditation on the Seven Hungers was done Patient identified their own eating/ GI issues w long covid and ways they have found to use food for healing: Eliana shares she had excellent smell before COVID, now she has decreased taste even 2 years out andwas eating a lot of spicy junk food to get flavor. Now is including more healthy options such as zimbabwean food and spicing up other foods Objective: NAD, on camera, participates in group Assessment: 1. Long COVID 2. SALIMA (obstructive sleep apnea) 3. Morbid obesity () 4. Dysthymic disorder 5. Social isolation 6. Nutritional counseling Here for a group medical visit focusing on plant based lowe glycemic, colorful, whole food diet related to reducing symptoms from Long COVID Plan: 1. How healthy is your diet questionnaire sent to on this patient - rated themselves at home 2. Research is shared on plant based diet for COVID harm reduction and for reduction of symptoms oflong COVID 3. Information on effects of a high glycemic diet discussed. Discussion on inflammation, oxidation and long covid symptoms and how to reduce that with food, again by increasing colorful plants and spices in the diet 4. Recipes for healthy eating are given, and eating healthy on a budget. 5. Each person discussed their hindrances and hacks with the group. 6. Modified fasting was discussed when possible and reasons for reducing inflammation and restoringtissues re: LC 7. Eliana is encouraged to explore spices more broadly, and also to ask [place] re: stellate ganglion block for restoring taste/ smell ( small study read on [employer]) Telemedicine: This group telemedicine visit is conducted [...] Total time spent on this visit, including [id number] interaction, review of medical record, and documentation: minutes. Patient consents to this service: Yes documented in this encounter Plan of Treatment Upcoming Encounters Date Type Department Care Team ([facility] st Contact Info) Description 02/14/2024 9:30 AM CDT Office Visit [facility] [address] [address] Stew Davey MD [address] [place] [address] [address] [place] [address] Scheduled Discharge Disposition: Discharged to home or self care (routine discharge) documented as of this encounter Visit Diagnoses Diagnosis Long COVID- Primary SALIMA (obstructive sleep apnea) Obstructive sleep apnea (adult) (pediatric) Morbid obesity () Morbid obesity Dysthymic disorder Social isolation Social maladjustment Nutritional counseling documented in this encounter Additional Health Concerns Assessment Noted Time PHQ-9 Depression Total Score: 7 11/28/19 22 11:23 AM MOTOR VEHICLE LICENCE EXAMINER PHQ-2 Depression Total Score: 1 11/28/19 22 11:23 AM MOTOR VEHICLE LICENCE EXAMINER documented as of this encounter Care Teams Service Or Work Dispatcher Chief Relationship Specialty Start Date End Date Bianca Cunningham PA-C [address] [place] [phone] Home Chain Person Family Medicine 03/18/20 Audra Frye, PT [address] [place], [place] [phone] Physical Therapist Physical Therapy 02/27/22 documented as of this encounter
--- OUTSIDE RECORDS SUMMARY | 2023-11-24 08:02 | XMS_ITS | Referral Summary ---
Author Name Unknown Organization [email or web address] Address [address] [place] [address] Phone Care Team Providers Care Branner Machine Tender Name Role Phone Audra Frye CHARITY Unavailable Stew Davey MD Unavailable Source Comments [employer] is fully rolled out on [employer]. Last update 03/22/09.[employer] Encounters Date Type Department Care Team Description 11/02/2023 [facility] [address] [place] [phone] Stew Davey MD Appointment 10/29/2023 [facility] [address] [place] [phone] Stew Davey MD Appointment 10/22/2023 Travel 10/22/2023 10:41 AM [employer] - 10/22/2023 3:38 PM [employer] Emergency [facility] [place] [address] [place] [address] Masters, MD Murtaza Sharif II, Erin R, MD Exacerbation of asthma, unspecified asthma severity, unspecified whether persistent Discharge Disposition: Discharged to home or self care (routine discharge) from Last 3 Months Allergies Active Allergy Reactions Criticality Noted Date Comments Adhesive Tape Other (see comments) 10/27/2006 Blisters, paper tape ok Blisters from normal surgical tape 2001 Lisinopril Cough 06/02/2016 Penicillins Rash 12/30/2007 Sulfa [...] fluids, rest, humidified air, OTC analgesics, lozenges Immunizations Name Administration Dates Next Due COVID-19 MRNA Vaccine (Pfizer/COMIRNATSwirl) suspension 11/08/2020,10/15/2020 Diphtheria and Tetanus Toxoid - [...] Vaccine, Unspecified 07/23/2014 Tuberculin (PPD) 02/28/2016, 2,05/19/2011,2009,05/28/2009 Social History Tobacco Use Types Packs/Day Years [...] Comments Blood Pressure 159/82 10/22/2023 10:12 AM [employer] Pulse 82 10/22/2023 10:12 AM [employer] TE[employer] Temperature 36.7 ??C (98.1 ??F) 10/22/2023 10:[address] Respiratory Rate 18 10/22/2023 10:12 AM [employer] Oxygen Saturation 98% 10/22/2023 12:54 PM [employer] Inhaled Oxygen Concentration - - Weight 113.4 kg (250 lb) 02/20/2022 9:02 AM CDT Height 160 cm (5' 3) 01/23/2022 1:24 PM CDT Body Mass Index 44.29 01/23/2022 1:24 PM CDT Plan of Treatment Upcoming Encounters Date Type Department Care Team (Late st Contact Info) Description 02/14/2024 9:30 AM CDT [facility] [address] [address] Stew Davey MD [address] [place] [address] [address] [place] [address] Scheduled Discharge Disposition: Discharged to home or self care (routine discharge) Procedures Procedure Name Priority Date/Time Associated Diagnosis Comments ED US CARDIAC STAT 10/22/2023 2:22 PM [employer] PC GASES,BLOOD,ANY COMB OF PH,PCD2,PO2,CO2,HCO2 STAT 10/22/2023 1:41 PM [employer] PC TROPONIN QUANTITATIVE Timed 10/22/2023 1:41 PM [employer] CT CHEST-PULMONARY ANGIO W/IV Routine 10/22/2023 12:50 PM [employer] PC TROPONIN QUANTITATIVE STAT 10/22/2023 10:58 AM [employer] PC LAB CBC W/DIFF & PLT STAT 10/22/2023 10:58 AM [employer] PC ELECTROLYTES PANEL STAT 10/22/2023 10:58 AM [employer] TE[employer] PC LAB HEME D-DIMEN QUANT Routine 10/22/2023 10:50 AM [employer]ER EXTRA TUBE - SST Routine 10/22/2023 10:5 0 AM [employer] TE[employer]ER TC LAB BLOOD DRAW BY VENIPUNCTURE Routine 10/22/2023 10:50 AM [employer]ER XR CHEST 2 VIEWS PA + LAT* Routine 10/22/2023 10:48 AM [employer] TE[employer]ER ED EKG (12-LEAD) Routine 10/22/2023 10:2 8 AM [employer]ER COVID/FLU COMBO STAT 10/22/2023 10:16 AM [employer]ER PANEL LIPID Routine 03/03/2023 3:02 PM CDT PAP TEST Routine 08/08/2019 1:26 PM CDT from Last 3 Months or Most Recently Relevant to Health Maintenance Results * ED US CARDIAC (10/22/2023 2:22 PM [employer]) Anatomical Region Laterality Modality Ultrasound Narrative 10/22/2023 3:15 PM [employer]ER ED Cardiac Ultrasound Body Areas Imaged: Heart and Chest Wall/Lungs Indications:Shortness of Breath/Hypoxia Window: Subxiphoid, Parasternal Short Chappell, Parasternal Long Chappell, Apical 4-Chamber, and Bilateral Lungs Findings: The [...] ULT * TROP 2H (10/22/2023 1:41 PM [employer]) 2H Trop <3 <=14 ng/L [facility] 2H Delta Not Significant Not Significant [facility] Blood 10/22/2023 1:41 PM [employer] TE[employer]ER 10/22/2023 2:01 PM [employer]ER Patricia Hauser MD LABORATORY Performing Organization Address City/[facility]/ZIP Co de Phone Number [facility] [address] [address] * BLOOD GASES (10/22/2023 1:41 PM [employer]) PH Rober 7.35 7.32 - 7.42 [facility] PCO2 Rober 47 41 - 51 mmHG [facility] PO2 Rober 35 25 - 40 mmHG [facility] Bicarb Rober 26 24 - 28 mEq/L [facility] O2 Sat Rober 60 % [facility] Base Exc Rober -0.8 -10.0 - 2.0 mEq/L [facility] Blood Venous 10/22/2023 1:41 PM [employer] 10/22/2023 1:42 PM [employer]ER Dana Lam PA-C LABORATORY Performing Organization Address [facility] Co de Phone Number [address] [address] * CT CHEST-PULMONARY ANGIO W/IV (10/22/2023 12:50 PM [employer]) Anatomical Region Laterality Modality Chest Computed Tomogra phy 10/22/2023 12:4 7 PM [employer]ER Impressions 10/22/2023 12:53 PM [employer]ER Impression: ??No pulmonary embolism. No acute abnormality. Reading Radiologist: Ty Monte Narrative 10/22/2023 12:53 PM [employer] Clinical Indication: Pulmonary embolism (PE) suspected, low [...] BODY * HS TROPONIN (10/22/2023 10:58 AM [employer]) HS Troponin I <3 <=14 ng/L [facility] Blood 10/22/2023 10:5 8 AM [employer] TE[employer]ER 10/22/2023 11:32 AM [employer] TE[employer]ER Narrative [facility] - 10/22/2023 12:03 PM [employer]ER If ordering as an add-on lab, you must call the lab. Patricia Hauser MD LABORATORY [facility] [address] * (ABNORMAL) ED CHEMISTRY LABS(NA,K,CL,CO2,GLU,CREAT,CA-IONIZED,ANION GAP) (10/22/2023 10:58 AM [employer]) Sodium 142 135 - 148 mEq/L [facility] Chloride 111(H) 92 - 108 mEq/L [facility] AnGap 10 8 - 16 mEq/L [facility] Glucose 137(H) 70 - 100 mg/dL [facility] ICA, Actual 4.31(L) 4.40 - 5.20 mg/dL [facility] ICA, pH Corrected 4.49 4.40 - 5.20 mg/dL [facility] Creatinine 0.94 0.50 - 1.00 mg/dL [facility] BICARB 21(L) 22 - 26 mEq/L [facility] eGFR (2020 CKD-EPI) 67 >=60 ml/min/1.7 3m2 [facility] Comment: The estimated glomerular filtration rate (eGFR) was calculated using the CKD-EPI 2020 creatinine equation, which does not include race as a factor. This equation is validated in individuals 18 years of age and older, and eGFR is normalized to a body surface area of 1.73m^2. Potassium 3.9 3.5 - 5.3 mEq/L [facility] Blood 10/22/2023 10:5 8 AM [employer] TE[employer]ER 10/22/2023 11:28 AM [employer] TE[employer]ER Patricia Hauser MD LABORATORY [facility] [address] [address] * CBC WITH PLTS/AUTO DIFF (10/22/2023 10:58 AM [employer] TE[employer]ER) WBC 9.87 4.00 - 10.00 k/cmm [facility] RBC 4.01 3.90 - 5.20 m/cmm [facility] Hgb 11.8 11.5 - 15.7 g/dL [facility] Hematocrit 36.4 34.0 - 45.0 % [facility] MCV 90.8 80.0 - 100.0 fL [facility] MCH 29.4 25.0 - 32.0 pg [facility] MCHC 32.4 31.0 - 36.0 g/dL [facility] RDW 13.1 11.5 - 14.5 % [facility] Plt 266 150 - 400 k/cmm [facility] MPV 10.5 6.5 - 12.5 fL [facility] Automated Abs Neutrophil 4.96 1.70 - 6.50 k/cmm [facility] Comment:Preliminary ANC, Fin al Result to Follow Abs Immature Granulocyte 0.07 0.00 - 0.09 k/cmm [facility] Comment:The Immature Granulo cyte Absolute count contains metamyelocytes and myelocytes. Abs Neutrophil 4.96 1.70 - 6.50 k/cmm [facility] Abs Lymphocyte 3.73 0.80 - 4.00 k/cmm [facility] Abs Monocyte 0.65 0.20 - 1.00 k/cmm [facility] Abs Eosinophil 0.40 0.00 - 0.60 k/cmm [facility] Abs Basophil 0.06 0.00 - 0.20 k/cmm [facility] Blood 10/22/2023 10:5 8 AM [employer]ER 10/22/2023 11:32 AM [employer]ER Patricia Hauser MD LABORATORY Performing Organization Address City/[facility]/[place] [address] * EXTRA TUBE - BLUE (10/22/2023 10:50 AM [employer]ER) BLUE TUBE [facility] Comment:Blue top(Sodium citr ate) tubes are kept for 3 days from the collection date. Blood 10/22/2023 10:5 0 AM [employer] TE[employer]ER 10/22/2023 11:00 AM [employer]ER Patricia Hauser MD LABORATORY Performing Organization Address City/[facility]/[place] [address] * EXTRA TUBE - SST (10/22/2023 10:50 AM [employer] TE[employer]ER) SST TUBE Stored [facility] Comment:SST tubes (Serum Sep arator) are stored in the lab for 3 days from the collection date. Blood 10/22/2023 10:5 0 AM [employer] TE[employer]ER 10/22/2023 11:00 AM [employer] TE[employer]ER Patricia Hauser MD LABORATORY Performing Organization Address [facility] Co de Phone Number [facility] [address] [place] [phone] * (ABNORMAL) D-DIMER QUANT (10/22/2023 10:50 AM [employer] TE[employer]ER) D Dimer 702(H) <=500 ng/mL FEU [facility] Comment:D-dimer values less than or equal to 500 ng/mL Fibrinogen Equivalent Units (FEU) may be used in conjunction with clinical pre-test probability to exclude deep vein thrombosis (DVT) and/or pulmonary embolism (PE). Blood 10/22/2023 10:5 0 AM [employer] TE[employer]ER 10/22/2023 11:53 AM [employer] TE[employer]ER Dana Lam PA-C LABORATORY Performing Organization Address [facility] Co de Phone Number [facility] [address] [place] [phone] * XR CHEST 2 VIEWS PA + LAT* (10/22/2023 10:48 AM [employer] TE[employer]ER) Anatomical Region Laterality Modality Chest Computed Radiogr aphy 10/22/2023 10:5 2 AM [employer] TE[employer]ER Impressions 10/22/2023 10:53 AM [employer] TE[employer]ER Impression: Clear lungs. Reading Radiologist: Migue Holguin Narrative 10/22/2023 10:53 AM [employer] TE[employer]ER Technique: XR CHEST 2 VIEWS PA + [...] * ED EKG (12-LEAD) (10/22/2023 10:28 AM [employer] TE[employer]ER) 10/22/2023 10:2 8 AM [employer] TEACHER Impressions [facility] CVIS EKG ORDERS - 10/22/2023 10:28 AM [employer] TE[employer]ER SINUS RHYTHM NORMAL ECG P-R Interval 178 ms QRS Interval 98 ms QT Interval 378 ms QTC Interval 406 ms P Chappell 54 QRS Chappell 79 T Wave Chappell 58 Narrative Procedure Note Walker Stewart MD - 10/22/2023 IMPRESSION SINUS RHYTHM NORMAL ECG P-R Interval 178 ms QRS Interval 98 ms QT Interval 378 ms QTC Interval 406 ms P Chappell 54 QRS Chappell 79 T Wave Chappell 58 Patricia Hauser MD EKG Performing Organization Address [facility] Co de Phone Number [facility] CVIS EKG ORDERS * COVID/FLU COMBO (10/22/2023 10:16 AM [employer] TE[employer]ER) COVID-19 Not Detected Not Detected [facility] Flu A Not Detected Not Detected [facility] Flu B Not Detected Not Detected [facility] Nasopharyngeal Swab 10/22/19 10:16 AM [employer] TE[employer]ER 10/22/2023 10:56 AM [employer] TEACHER Narrative [facility] - 10/22/2023 11:19 AM [employer] TEACHER Must be COMPONENTS ENGINEER swab. ??COVID and Influenza testing can be completed on the same swab Sending tests other than COVID-19 and Influenza requires additional swab(s) Is the patient a healthcare employee: No Is the patient a [facility] ([facility]) Employee: No Date of symptom onset: 10/20/23 If eligible is the patient interested in medication for treatment of COVID disease: No Patricia Hauser MD LABORATORY [facility] [address] [address] from Last 3 Months or Most Recently Relevant to Health Maintenance Care Teams Branner Machine Tender Relationship Specialty Start Date End Date Audra Frye, PT [address] [address] Physical Therapist Physical Therapy 02/27/22 Stew Davey MD [address] [place] [address] Pulmonary 10/25/23
--- OUTSIDE RECORDS SUMMARY | 2023-11-24 08:03 | XMS_ITS | Encounter Summary ---
Author Name Unknown Organization [facility] Address [address] [place] [address] Phone Care Team Providers Care Appellate Court Clerk Name Role Phone Bianca Cunningham PAMagaliC Unavailable [phone] Audra Frye PT Unavailable [phone] Reason for Visit * Prior Authorization (Routine) - Closed Specialty Diagnoses / Procedures Referred By Contac t Referred To Contact Physical Therapy / PHYSICAL MEDICINE AND REHAB Diagnoses Post-COVID chronic fatigue Decreased ROM of neck Impaired functional mobility, balance, gait, and endurance Procedures PT TREATMENT PLAN PT SUBSEQUENT TREATMENT PLAN Veronica Dugan, TEMPER MILL OPERATOR, SHINGLE GRADER [address] [place] [address] Vicenta Altamirano, PT [address] [place] [id number] Referral ID Status Reason Start Date Expiration Date Visits Re quested Visits Authorized [id number] Closed 12/18/2021 04/16/2023 12 50 Encounter Details Date Type Department Care Team ([facility] st Contact Info) Description 12/11/2022 8:00 AM [facility] C[facility] - 12/11/2022 11:59 PM DIRECTOR OF FAM[facility] SERVICE CENTER Hospital [facility] Physical [facility] [address] [address] Stew Obando MD [address] [place] [phone] Matt Acuña PA-C [address] [place] [address] [place], Audra, PT [address] [place] [address] Discharge Disposition: Discharged to home or self [...] Recorded In the last 10 days, have alissa u been in contact with someone who was confirmed or suspected to have Coronavirus/COVID-19? No / Unsure 12/04/2022 7:53 AM DIRECT[facility] FAMILY [facility]ICE CENTER documented as of this encounter Medications at Time of Discharge Medication Sig Dispensed Refills Start Date End Date DULoxetine (CYMBALTA) 60 mg oral capsule Take [...] 1 tablet (50 mg) by mouth daily. semaglutide-weight management (WEGOVY) 0.25 mg/0.5 mL subcutaneous auto-injector pen Inject 0.5 mL (0.25 mg) subcutaneously every week. 2 mL 11/23/2022 12/14/2022 losartan (COZAAR) 50 mg oral tablet Take 1 tablet (50 mg) by mouth at bedtime. 10/22/2023 documented as of this encounter Progress Notes * Audra Frye, PT - 12/11/2022 8:00 AM CST Images from the original note were not included. PHYSICAL THERAPY DAILY NOTE Eliana Solomon : 1955 Gender: female Date of Service: 12/11/2022 Start of Care: 12/18/21 Visit #: [id number] Missed Appointments: 0 Referring Diagnosis: PT Eval and Treat- Post-Acute Sequelae COVID-19 Treatment Diagnosis: Post-COVID chronic fatigue [R53.82, U09.9] - Primary Decreased ROM of neck [R29.898] Impaired functional mobility, balance, gait, and endurance [Z74.09] Treatment Summary Due: 01/06/23 (ORDER NEEDED, no re-cert) Certification Period: 12/09/22-03/08/23 Onset Date: 11/28/21 date of referral Dates of Recent Hospitalization: No overnight admissions Referring Provider: Veronica Dugan APRN, FRANCOIS Current Precautions/Contraindications: Shortness of breath Post-acute sequelae of COVID-19 (PASC) Post viral syndrome Mood changes Postviral fatigue syndrome Cognitive change Dizziness Muscle pain Arthralgia, unspecified joint [facility] Gasket Maker: no SUBJECTIVE: Did not have muscle soreness after Was also able to get her sleep 12 hours and felt good the next day too Is on week three of [place] Feels that she is eating differently and better already - smaller portions, less cravings Has been doing HEP at home consistently Higher fatigue levels today Has been doing 20 reps of each HEP until she gets tired OBJECTIVE: Use of 4WW BP HR SPO2 Symptoms Resting 127/73 76 96% 5/10 fatigue levels After 6 minute walk test 118/75 90 Still changes in fatigue levels 6 minute walk test: 345 meters, use of 4WW, able to stay consistent with pace, min-moderate SOB, able to maintain conversation throughout, did not do a cool down lap. Age Group Mean Distance (in meters) 60-69 Male 497.7 Female 405 70-79 Male 475.3 Female 406.4 80-89 Male 319.6 Female 281.8 No device 327.9 Device 196.6 90-101 Male 295.7 Female 261.4 No device 324.4 Device 224.2 MDC (minimal detectable change): Chronic stroke (6+ months post): 29-36.6 meters Sub acute stroke (2-6 months post): 60.98 meters MCID (minimal clinical importance difference) Post stroke: 34.4-50 meters Reference: Romina MM, Lorrie GL, Jim Pavon. Functional performance in community living older adults. Journal of Geriatric Physical Therapy. 2003; 26: 14-20. TREATMENT TODAY: NMR: (43 minutes) Objective measures taken above. -discussed improvements in her progress with 6 minute walk test -instructed in goal distance for 6 minute walk test NuStep performed with recumbent stepper machine with bilateral UE and bilateral LE use for strengthening and CV endurance -level 5, 18 minutes , level 1 for 1 minutes -SPM: ~80 -distance 0.83 Did not have increases in her fatigue levels with this Discussed the following: -improvements in her tolerance to CV Exercise with use of 4WW -improvements in her tolerance to the NuStep - highest levels resistance and SPM -less SOB with this, no increases in her fatigue levels -goals reviewed below for balance, strength, dizziness -progress with HEP higher reps, up to 20 until fatigue Total Treatment Time: 43 minutes ASSESSMENT: Patient presented today reporting more fatigue levels today. In today's session patient performed 6minute walk test with increase in her distance while still being able to maintain conversation and no balance concerns, did use 4WW. Due to fatigue was not able to perform LE strengthening, did opt for using NuStep today with higher levels of resistance, increased SPM. Patient was will able to maintain conversation with this and did not have an increase in her fatigue levels. This is showing goodprogress with her tolerance to CV exercises. Will continue to address in future sessions with LE strengthening as well. Patient pleased with progress which was reviewed today. Patient continues to progress towards therapy goals and remains appropriate for skilled PT services. Goals: 1) Pt to independently demonstrate HEP in order to maximize carry over of benefits from OP PT by 01/18/22 -02/19: GOAL MET. Will continue to update as medically appropriate. 2) Pt to demonstrate 85 degrees of active R and L cervical rotation in order to better look around environment safely and with no more than a 1/10 point increase in pain reported by 07/09/22. 04/24/2022: in progress, will assess next session 07/17/2022: GOAL MET, no concerns with cervical ROM 3) Pt to complete 15 minutes of CV exercise of choice with RPE at or below 15/20 and with appropriate HR/SpO2 response and with no more than a 1/10 point increase in any increase in pain reported in order to demonstrate safe return to exercise for healthy lifestyle by 03/20/22 -03/06; GOAL MET 4) Pt to ambulate X 10 minutes with good balance and with only minimal SOB noted with 2 rest breaksin order for pt to return to aerobic walking for exercise and healthy lifestyle by 07/09/22. 04/24/2022: GOAL MET 5) GOAL ADDED: Patient to tolerate 45 minutes of moderate physical activity without more than a 2 point increase in symptoms, and no delayed symptoms the next day, in order to improve tolerance to home and work related tasks by 01/06/23. 04/24/2022: in progress 07/17/2022: in progress, able to to 30 minutes on NuStep, needing 3-4 minute break after, does have some increases in fatigue with this 07/22/2022: in progress, continues to need breaks and with fatigue after 09/18/2022: in progress, the last month has not been able to tolerate up to 30 minutes on NuStep dueto dizziness/vertigo and SOB, will continue to address this 10/07/2022: in progress, will continue with addressing this 12/04/2022: in progress, has had two sessions in the last month where she can tolerate this, will continue to try to achieve weekly in sessions 6) GOAL ADDED: Patient will score 27/30 on FGA in order to improve safety with ambulation in the home and at work by 01/06/23. 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 10/07/2022: in progress, 6 minute walk score today 360 meters. 10/16/22: in progress, scored 350 today with improved fatigue levels 12/04/2022: in progress, can tolerate 20 minutes on NuStep with SPM: 77, 10 minutes level 4 and 10 minutes level 5. Able to maintain conversation and improvement in her SOB. 12/11/2022: in progress, scored 345 meters today with use of 4WW Goals to be updated and/or modified as appropriate pending pt progress. PLAN CV exercise- progress Rebounder for balance Gaze stabilization exercises Next Session: 6 minute walk test again with walker, NuStep level 5 and increased SPM, leg press machine. HEP: -balance head turns and weight shifting -walking program ADDED 04/24: -dynamic balance: head turns, backwards walking, narrow walking, marches walking ADDED 05/15 -diaphragmatic breathing with long exhale ADDED 06/20 -gaze stabilization, horizontal ADDED 06/26: -vertical gaze stabilization ADDED 07/17 -bouncy ball catch: B hands, single hands, hot potato single hand ADDED 07/22 -stationary dribbling ADDED 08/14 -ball toss to hands both sitting and walking ADDED 08/21 -ball toss, lateral gaze, counting -hydration -sleep ADDED 09/03 -seated and walking: vertical head turns, ball toss, steps, and counting by 2's ADDED 10/07 -walking around her home, can do standing ADDED 10/16 -hip extension RTB -hip abduction RTB -fire hydrant RTB ADDED 10/23 -forward step taps -lateral step ups -hip hikes ADDED 2/3 -increased reps on stair exercises Physical Therapist: Audra Frye, PT, 12/11/2022 8:54 AM [place] License #: [id number] [facility] documented in this encounter Plan of Treatment Upcoming Encounters Date Type Department Care Team (Late st Contact Info) Description 02/14/2024 9:30 AM CDT [facility] [address] [place] [address] Stew Davey MD [address] [facility] [address] [place], [place] [id number] Scheduled Discharge Disposition: Discharged to home or self care (routine discharge) documented as of this encounter Visit Diagnoses Not on filedocumented in this encounter Additional Health Concerns Assessment Noted Time PHQ-9 Depression Total Score: 7 11/28/19 22 11:23 AM [facility] PHQ-2 Depression Total Score: 1 11/28/19 22 11:23 AM [facility] documented as of this encounter Care Teams Appellate Court Clerk Relationship Specialty Start Date End Date Bianca Cunningham PA-C [address] [place] [address] Home Amortization Clerk Family Medicine 03/18/20 Audra Frye, PT [address] [place] [address] Physical Therapist Physical Therapy 02/27/22 documented as of this encounter
--- OUTSIDE RECORDS SUMMARY | 2023-11-24 08:03 | XMS_ITS | Encounter Summary ---
Author Name Unknown Organization [facility] Address [address] [place] [address] Phone Care Team Providers Care Flower Cutter Name Role Phone Bianca Cunningham PAMagaliC Unavailable [phone] Audra Frye PT Unavailable [phone] Reason for Visit * Prior Authorization (Routine) - Closed Specialty Diagnoses / Procedures Referred By Contac t Referred To Contact Physical Therapy / PHYSICAL MEDICINE AND REHAB Diagnoses Post-COVID chronic fatigue Decreased ROM of neck Impaired functional mobility, balance, gait, and endurance Procedures PT TREATMENT PLAN PT SUBSEQUENT TREATMENT PLAN Veronica Dugan, INTERNET ASSESSOR, MOTOR ELECTRICIAN [address] [place] [address] Vicenta Altamirano, PT [address] [place] [address] Referral ID Status Reason Start Date Expiration Date Visits Re quested Visits Authorized [id number] Closed 12/18/2021 04/16/2023 12 50 Encounter Details Date Type Department Care Team (Latest Contact Info) Description 12/04/2022 7:53 AM OPTIMIZATION ANALYST - 12/04/2022 11:59 PM OPTIMIZATION ANALYST Hospital Encounter [facility] Physical [facility] [address] [address] Provider, [place] [address] Audra Frye, PT [address] [place] [address] Discharge Disposition: Discharged to home or self [...] Coronavirus/COVID-19? No / Unsure 12/04/2022 7:53 AM OPTIMIZATION ANALYST documented as of this encounter Medications at [...] bedtime. 10/22/2023 documented as of this encounter Miscellaneous Notes * Treatment Summary - Audra Frye, PT - 12/04/2022 8:00 AM CST Images from the original note were not included. PHYSICAL THERAPY RE-CERT & DAILY NOTE Eliana Solomon : 1955 Gender: female Date of Service: 12/04/2022 Start of Care: 12/18/21 Visit #: 33 Missed Appointments: 0 Referring Diagnosis: PT Eval and Treat- Post-Acute Sequelae COVID-19 Treatment Diagnosis: Post-COVID chronic fatigue [R53.82, U09.9] - Primary Decreased ROM of neck [R29.898] Impaired functional mobility, balance, gait, and endurance [Z74.09] Treatment Summary Due: 01/06/23 (ORDER NEEDED, no re-cert) Certification Period: 12/09/22-03/08/23 Onset Date: 11/28/21 date of referral Dates of Recent Hospitalization: No overnight admissions Referring Provider: Veronica Dugan APRN, CNP Current Precautions/Contraindications: Shortness of breath Post-acute sequelae of COVID-19 (PASC) Post viral syndrome Mood changes Postviral fatigue syndrome Cognitive change Dizziness Muscle pain Arthralgia, unspecified joint [facility] Shop Assistant: no RECERTIFICATION SUMMARY New Recertification period: 12/09/22-03/08/23 Last attended session: See below. Recertification Assessment of need for continued skilled physical therapy interventions: Patient continues to make steady progress toward short term and intermediate card tender goals which have been updated below to reflect their progress. Overall patient has been making good progress and improvementsin her CV tolerance, with ability to walk longer distances without taking a break due to fatigue. For example, for the last month patient is now able to walk from the parking lot to her office using her walker without having to take a break, this is the first time since [facility] that she has been able to do this. A little over a month ago patient had a long bout of dizziness that was on and off, preventing her from progressing with CV and strengthening at times. With vestibular int erventions preformed, she had resolution of her lingering dizziness after vertigo episodes. Since this resolution in dizziness, she has been able to progress LE strengthening with several sets and with added weight, which is the first time she has been able to consistently perform since starting PTservices. However, patient is still functioning below baseline for CV tolerance, activity tolerance, dizziness. Patient will continue to benefit from skilled PT interventions to further address these deficits and progress their home exercise program in order to achieve their goals and discharge to independent programming as appropriate. If the patient plateaus or demonstrates decreased participation including missed therapy appointments, they will be discharged from this episode of care. Patient currently demonstrates high motivation and compliance with skilled PT interventions and recommendations. Patient demonstrates potential to benefit from continued PT interventions in order to progress their level of independent functioning. PLAN: CV exercise LE strengthening Vestibular interventions if needed SUBJECTIVE: [facility] No longer having intense cravings for doritos and cheese balls OBJECTIVE: Use of 4WW BP HR SPO2 Symptoms Resting 117/82 86 96% After NuStep Invigorated but sleepy TREATMENT TODAY: NMR: (55 minutes) Objective measures taken above. NuStep performed with recumbent stepper machine with bilateral UE and bilateral LE use for strengthening and CV endurance -level 4, 10 minutes and level 5, 10 minutes -SPM: ~77 -distance 0.85 Did not have increases in her fatigue levels with this Seated break for 4 minutes after Discussed the following: -improvements in her tolerance to CV Exercise -less SOB, improvements in her fatigue levels -goals reviewed below for balance, strength, dizziness. Performed at the stairs with single hand support with 2# ankle weights: -forward stair taps X 30 B. Cues for high steps. High speed. Seated break for 1 minute. -lateral stair taps X 30 B. Feeling muscle soreness with this. Seated break X 2 minutes. -hip hike on B LE with some knee bending for comfort X 30 B. Seated break X 2 minutes. SOB. Total Treatment Time: 55 minutes ASSESSMENT: See above assessment. In today's session patient performed progression of NuStep, with patient having the most resistance thus far and able to maintain conversation and no increases or change in her fatigue levels with this. She also well tolerated the step exercises today with 2# weight. Patient continues to progress towards therapy goals [...] maintain conversation and improvement in her SOB. Goals to be updated and/or modified as appropriate pending pt progress. PLAN CV exercise- progress Rebounder for balance Gaze stabilization exercises Next Session: 6 minute walk test again with walker, progress LE strengthening exercises, upright walking, check in with dizziness, can do upright standing exercises. HEP: -balance head turns and weight shifting [...] -walking around her home, can do standing marches ADDED 10/16 -hip extension RTB -hip abduction RTB -fire hydrant RTB ADDED / -forward step taps -lateral step ups -hip hikes ADDED 2/3 -increased reps on stair exercises Physical Therapist: Audra Frye, PT, 12/04/2022 5:19 PM [place] License #: [id number] MIZATION ANALYST documented in this encounter Plan of Treatment Upcoming Encounters Date Type Department Care Team (Late st Contact Info) Description 02/14/2024 9:30 AM CDT Office [facility] [address] [address] Stew Davey MD [address] [place] [address] [address] [place], [place] [id number] Scheduled Discharge Disposition: Discharged to home or self care (routine discharge) documented as of this encounter Visit Diagnoses Diagnosis Long COVID documented in this encounter Additional Health Concerns Assessment Noted Time PHQ-9 Depression Total Score: 7 11/28/19 22 11:23 AM OPTIMIZATION ANALYST PHQ-2 Depression Total Score: 1 11/28/19 22 11:23 AM OPTIMIZATION ANALYST documented as of this encounter Care Teams Flower Cutter Relationship Specialty Start Date End Date Bianca Cunningham PA-C [address] [place] [address] Home Technology Methodology Consultant Family Medicine 03/18/20 Audra Frye, PT [address] [place], [place] [id number] Physical Therapist Physical Therapy 02/27/22 documented as of this encounter
--- OUTSIDE RECORDS SUMMARY | 2023-11-24 08:03 | XMS_ITS | Encounter Summary ---
Author Name Unknown Organization [facility] [place] Address [address] [facility] [place] [address] Phone Care Team Providers Care Wrist Hemmer Name Role Phone Bianca Cunningham PAMagaliC Unavailable [phone] Audra Frye PT Unavailable [phone] Reason for Visit * Prior Authorization (Routine) - Closed Specialty Diagnoses / Procedures Referred By Contac t Referred To Contact Physical Therapy / PHYSICAL MEDICINE AND REHAB Diagnoses Post-COVID chronic fatigue Decreased ROM of neck Impaired functional mobility, balance, gait, and endurance Procedures PT TREATMENT PLAN PT SUBSEQUENT TREATMENT PLAN Veronica Dugan, CONSTRUCTION QUALITY CONTROL MANAGER, COSTUME DESIGNER [address] [place] [address] Vicenta Altamirano, PT [address] [place] [address] Referral ID Status Reason Start Date Expiration Date Visits Re quested Visits Authorized [id number] Closed 12/18/2021 04/16/2023 12 50 Encounter Details Date Type Department Care Team (Latest Contact Info) Description 12/18/2022 8:00 AM WINDOW CASER - 12/18/2022 11:59 PM WINDOW CASER [facility] [address] [address] Provider, [place] [address] Audra Frye, PT [address] [place] [address] Discharge Disposition: Discharged to home or self [...] suspected to have Coronavirus/COVID-19? No / Unsure 12/18/2022 8:09 AM WINDOW CASER documented as of this encounter Medications at Time of Discharge Medication Sig Dispensed Refills Start Date End Date DULoxetine (CYMBALTA) 60 mg oral capsule Take 1 capsule (60 mg) by mouth daily. 30 capsule 02/20/2022 budesonide-formoterol (SYMBICORT) 80-4.5 MCG/ACT inhalation inhaler Inhale 2 puffs by mouth twice daily as needed for shortness of breath. 10.2 g 3 12/21/2019 GABApentin (NEURONTIN) 600 mg oral tablet Take 1 tablet (600 mg) by mouth each evening. metoprolol succinate (TOPROL XL) 50 mg oral tablet 24 HR Take 1 tablet (50 mg) by mouth daily. Semaglutide-Weight Management (WEGOVY) 0.5 mg/0.5 mL subcutaneous auto-injector pen Inject 0.5 mg subcutaneous once weekly for 28 days. 2 mL 12/14/2022 12/31/2022 losartan (COZAAR) 50 mg oral tablet Take 1 tablet (50 mg) by mouth at bedtime. 10/22/2023 documented as of this encounter Progress Notes * Audra Frye, PT - 12/18/2022 8:00 AM CST Images from the original note were not included. PHYSICAL THERAPY DAILY NOTE Eliana Solomon : 1955 Gender: female Date of Service: 12/18/2022 Start of Care: 12/18/21 Visit #: 35 Missed Appointments: 0 Referring Diagnosis: PT Eval [...] change Dizziness Muscle pain Arthralgia, unspecified joint [facility] Labor And Delivery Registered Nurse: no SUBJECTIVE: First week of having Wednesday off, had more energy yesterday Still having less cravings OBJECTIVE: Use of 4WW BP HR SPO2 Symptoms Resting 118/80 89 96% 4/10 fatigue levels After 6 minute walk test and NuStep 146/77 90 3/10 fatigue levels After leg press machine 135/70 83 3/10 fatigue 6 minute walk test: 368 meters, use of 4WW, able to stay consistent with pace, min- SOB, able to maintain conversation throughout, did not feel tired, able to get on NuStep right after with higher speeds. No LOB, appropriate turns without balance concerns. Age Group Mean Distance (in meters) 60-69 [...] Physical Therapy. 2003; 26: 14-20. TREATMENT TODAY: Therapeutic Exercise: (46 minutes) Objective measures taken above. -discussed improvements in her progress with 6 minute walk test -instructed in goal distance for 6 minute walk test NuStep performed with recumbent stepper machine with bilateral UE and bilateral LE use for strengthening and CV endurance -level 5, 5 minutes -SPM: ~95-100 -distance : not measured today Did not have increases in her fatigue levels with this -leg press machine performed: -normal reps #120 X 10 -normal reps #140 X 10 X 3 sets Cues for parallel knees and feet, slow controlled descent Tactile cues to prevent B knee valgus Demonstrating ability to maintain knee positioning, reporting hip adductors feeling muscle soreness. Total Treatment Time: 46 minutes ASSESSMENT: Patient presented today reporting continuation of less cravings with continuation of [place]. In today's session patient performed 6 minute walk test with increases in her distance with improvement inher fatigue levels, able to keep conversation throughout and no balance concerns. Patient was able to follow this up with NuStep at highest SPM without increases in fatigue. Did initiate leg press machine today at high weight with only muscle fatigue. Patient requesting to do bench press, informed that we are pacing today to prevent delayed fatigue. Patient continues to progress towards therapy goals [...] stair exercises Physical Therapist: Audra Frye, PT, 12/18/2022 9:12 AM [place] License #: [id number] OW CASER documented in this encounter Plan of Treatment Upcoming Encounters Date Type Department Care Team (Late st Contact Info) Description 02/14/2024 9:30 AM CDT [facility] [address] [address] Stew Davey MD [address] [place] [address] [address] [place] [address] Scheduled Discharge Disposition: Discharged to home or self care (routine discharge) documented as of this encounter Visit Diagnoses Diagnosis Long COVID documented in this encounter Additional Health Concerns Assessment Noted Time PHQ-9 Depression Total Score: 7 11/28/19 22 11:23 AM WINDOW CASER PHQ-2 Depression Total Score: 1 11/28/19 22 11:23 AM WINDOW CASER documented as of this encounter Care Teams Wrist Hemmer Relationship Specialty Start Date End Date Bianca Cunningham PA-C [address] [place] [address] Home Store Operations Specialist Family Medicine 03/18/20 Audra Frye, PT [address] [place] [address] Physical Therapist Physical Therapy 02/27/22 documented as of this encounter
--- OUTSIDE RECORDS SUMMARY | 2023-11-24 08:03 | XMS_ITS | Encounter Summary ---
Author Name Unknown Organization [facility] Address [address] [place] [address] Phone Care Team Providers Care Chalk Molding Machine Operator Name Role Phone Bianca Cunningham PA-C Unavailable [phone] Audra Frye PT Unavailable [phone] Reason for Visit * Prior Authorization (Routine) - Closed Specialty Diagnoses / Procedures Referred By Joselo t Referred To Contact [facility] Diagnoses Covid [address] [place] [address] Referral ID Status Reason Start Date Expiration Date Visits Re quested Visits Authorized [id number] Closed 01/27/2023 10/17/2023 99 99 Encounter Details Date Type Department Care Team (Late st Contact Info) Description 01/27/2023 10:00 AM CDT Telemedicine [facility] [address] [place] [address] SALIMA (obstructive sleep apnea) (Primary Dx); Mild persistent asthma without complication; Long COVID Discharge Disposition: Discharged to home or self [...] suspected to have Coronavirus/COVID-19? No / Unsure 01/08/2023 8:04 AM CDT documented as of this encounter Miscellaneous Notes * Group Note - Khadijah Bearden MD - 01/27/2023 10:00 AM CDT Group Visit Start and End Time: 10:00 AM-12:00 PM Group Bryologist: Khadijah Bearden MD Number of patients in group: Mindful activity: Mindful Questions of journey with Long COVID andd goals for the GV session Group Topic Discussion: Introduction to Long Covid Recovery Program S: Introduction group medical visit for Long Covid. Each participant shared their story on getting covid and briefly their journey of long covid, and the strengths and needs they bring: + Eliana was workign at [employer] when got covid. Goes to PT, etc at [facility] After 2 years can now walk a block, slow recovery is very difficult. Finds cymbalta helps her pain a lot Powerpoint was on components of the group visit program and the topics on long covid including physiology that we will be focusing on over the next 7 weeks Practice on folding paper for acknowledging the grief of long covid is done as a group. Each personshared what they grieve. O: NAD engaged A: First GV in a series on recovering from Long Covid P: 1. Participants agreed to confidentiality 2. Participants shared their story and symptoms of long covid, also shared strengths they bring to the group 3. Discussion on the physiology that is known of covid including SUSHANT-2 enzyme depletion, chronic active infection, immune system changes, microbiome disruption, mitochondrial toxicity, and stress/ cortisol depletion and more. We will be addressing each of these components over the next 6 weeks 4. Goals for this participant are addressed 5. Meds are reviewed labs reviewed, supplements reviewed, and basic supplements for healing long covid are addressed with this participant specifically to their 6. Eliana will continue on cymblata, consider taking a few supplements: D, fish oil and turmeric Telemedicine: This group telemedicine visit is conducted [...] N/A Patient consents to this service: Yes Telemedicine: This group telemedicine visit is conducted [...] [facility] [address] [address] Stew Davey MD [address] [place] [address] [address] [place] [address] Scheduled Discharge Disposition: Discharged to home or self care (routine discharge) documented as of this encounter Visit Diagnoses Diagnosis SALIMA (obstructive sleep apnea)- Primary Obstructive sleep apnea (adult) (pediatric) Mild persistent asthma without complication Unspecified asthma Long COVID documented in this encounter Additional Health Concerns Assessment Noted Time PHQ-9 Depression Total Score: 7 11/28/19 22 11:23 AM RN CARDIOVASCULAR PHQ-2 Depression Total Score: 1 11/28/19 22 11:23 AM RN CARDIOVASCULAR documented as of this encounter Care Teams Chalk Molding Machine Operator Relationship Specialty Start Date End Date Bianca Cunningham PA-C [address] [place] [address] Home Complaint Operator Family Medicine 03/18/20 Audra Frye, PT [address] [place] [address] Physical Therapist Physical Therapy 02/27/22 documented as of this encounter
--- OUTSIDE RECORDS SUMMARY | 2023-11-24 08:03 | XMS_ITS | Encounter Summary ---
Author Name Unknown Organization [facility] [place] Address [address] [place] [address] Phone Care Team Providers Care Animal Care Specialist Name Role Phone Bianca Cunningham PA-C Unavailable [phone] Audra Frye PT Unavailable [phone] Encounter Details Date Type Department Care Team (Latest Contact Info) Description 01/29/2023 Travel Social History Tobacco Use Types Packs/Day [...] AM CDT documented as of this encounter Plan of Treatment Upcoming Encounters Date Type Department Care Team ( st Contact Info) Description 02/14/2024 9:30 AM CDT [facility] [address] [place] [address] Stew Davey MD [address] [place] [address] [address] [place] [address] Scheduled Discharge Disposition: Discharged to home or self care (routine discharge) documented as of this encounter Visit Diagnoses Not on filedocumented in this encounter Additional Health Concerns Assessment Noted Time PHQ-9 Depression Total Score: 7 11/28/19 22 11:23 AM COMMUNITY HEALTH EDUCATION COORDINATOR PHQ-2 Depression Total Score: 1 11/28/19 22 11:23 AM COMMUNITY HEALTH EDUCATION COORDINATOR documented as of this encounter Care Teams Animal Care Specialist Relationship Specialty Start Date End Date Bianca Cunningham PA-C [address] [place] [address] Home Gas Or Water Meter Installer Family Medicine 03/18/20 Audra Frye, PT [address] [place], [place] [address] Physical Therapist Physical Therapy 02/27/22 documented as of this encounter
--- OUTSIDE RECORDS SUMMARY | 2023-11-24 08:03 | XMS_ITS | Encounter Summary ---
Author Name Unknown Organization [facility] Address [address] [place] [address] Phone Care Team Providers Care Owner Name Role Phone Bianca Cunningham PA-C Unavailable [phone] Audra Frye PT Unavailable [phone] Encounter Details Date Type Department Care Team (Latest Contact Info) Description 12/04/2022 Travel Social History Tobacco Use Types Packs/Day [...] Coronavirus/COVID-19? No / Unsure 12/04/2022 7:53 AM TARIFF PUBLISHING AGENT documented as of this encounter Plan of Treatment Upcoming Encounters Date Type Department Care Team ( Contact Info) Description 02/14/2024 9:30 AM CDT [facility] [address] [place] [address] Stew Davey MD [address] [place] [address] [address] [place] [address] Scheduled Discharge Disposition: Discharged to home or self care (routine discharge) documented as of this encounter Visit Diagnoses Not on filedocumented in this encounter Additional Health Concerns Assessment Noted Time PHQ-9 Depression Total Score: 7 11/28/19 22 11:23 AM TARIFF PUBLISHING AGENT PHQ-2 Depression Total Score: 1 11/28/19 22 11:23 AM TARIFF PUBLISHING AGENT documented as of this encounter Care Teams Owner Relationship Specialty Start Date End Date Bianca Cunningham PAMagaliC [address] [place] [address] Home Career Education Teacher Family Medicine 03/18/20 Audra Frye, PT [address] [place], [place] [address] Physical Therapist Physical Therapy 02/27/22 documented as of this encounter
--- OUTSIDE RECORDS SUMMARY | 2023-11-24 08:03 | XMS_ITS | Encounter Summary ---
Author Name Unknown Organization [facility] Address [address] [place] [address] Phone Care Team Providers Care Arc And Gas Welder Name Role Phone Bianca Cunningham PA-C Unavailable [phone] Audra Frye PT Unavailable [phone] Reason for Visit * Prior Authorization (Routine) - Closed Specialty Diagnoses / Procedures Referred By Contac t Referred To Contact Physical Therapy / PHYSICAL MEDICINE AND REHAB Diagnoses Post-COVID chronic fatigue Decreased ROM of neck Impaired functional mobility, balance, gait, and endurance Procedures PT TREATMENT PLAN PT SUBSEQUENT TREATMENT PLAN Veronica Dugan, WAREHOUSE EXAMINER, COUNTY BAILIFF [address] [place] [address] Vicenta Altamirano, PT [address] [place] [address] Referral ID Status Reason Start Date Expiration Date Visits Re quested Visits Authorized [id number] Closed 12/18/2021 04/16/2023 12 50 Encounter Details Date Type Department Care Team (Latest Contact Info) Description 01/08/2023 8:00 AM CDT - 01/08/2023 11:59 PM CDT Hospital Encounter [facility] [address] [address] Provider, [place] [address] Audra Frye, PT [address] [place] [address] Discharge Disposition: Discharged to home or self [...] AM CDT documented as of this encounter Medications at [...] mL subcutaneous auto-injector pen Inject 0.5 mL (0.5 mg) subcutaneously once every week for 28 days. 2 mL 12/31/2022 02/08/2023 semaglutide-weight management (WEGOVY) 1 mg/0.5 mL subcutaneous auto-injector pen Inject 0.5 mL (1 mg) subcutaneously every week. 2 mL 12/23/2022 02/08/2023 losartan (COZAAR) 50 mg oral tablet Take 1 tablet (50 mg) by mouth at bedtime. 10/22/2023 documented as of this encounter Progress Notes * Audra Frye, PT - 01/08/2023 8:00 AM CDT Images from the original note were not included. PHYSICAL THERAPY DAILY NOTE Eliana Solomon : 1955 Gender: female Date of Service: 01/08/2023 Start of Care: 12/18/21 Visit #: 37 Missed Appointments: 0 Referring Diagnosis: PT Eval [...] change Dizziness Muscle pain Arthralgia, unspecified joint [facility] Machine Maintenance Repairer: no SUBJECTIVE: Is still with higher fatigue levels With R knee pain lately - did have meniscal tear with repair It does not feel like that injury, but feels that it is dull arthritis pain with step ups OBJECTIVE: Use of 4WW BP HR SPO2 Symptoms Resting 149/84 94 4/10 fatigue After NuStep 4/10 fatigue, Happy fatigue not groggy TREATMENT TODAY: Therapeutic Exercise: (48 minutes) Objective measures taken above. NuStep performed with recumbent stepper machine with bilateral UE and bilateral LE use for strengthening and CV endurance -level 4, 12 minutes -SPM: ~65 -distance : 0.53 miles Did not have increases in her fatigue levels with this The following was performed at counter without UE support, GTB, 2 sets performed: -hip extension pulses X 20 B -hip abduction pulses X 20 B -hip flexion pulses X 20 B -fire hydrant pulses X 10 B Patient with 3 minute seated break between sets. Did have some SOB Cues for pulses, use of lower core, upright posture. Total Treatment Time: 48 minutes ASSESSMENT: Patient presented today reporting continued high levels of pain, with R knee pain lately. In today's session progressed on NuStep machine and LE strengthening to help improve R knee pain. Patient demonstrated ability to perform standing LE strengthening, without R knee pain, did get some SOB and nee ding seated break during, but improvements in her fatigue. Patient continues to progress towards therapy [...] performing balance interventions 09/18/2022: in progress, today 30 on FGA today 10/07/2022: in progress, will [...] ADDED 2/3 -increased reps on stair exercises ADDED 01/08 -standing GTB pulses: hip abduction, extension, marches, fire hydrant Physical Therapist: Audra Frye, PT, 01/08/2023 8:54 AM [place] License #: [id number] documented in this encounter Plan of Treatment Upcoming Encounters Date Type Department Care Team (Late st Contact Info) Description 02/14/2024 9:30 AM CDT [facility] [address] [address] Stew Davey MD [address] [place] [address] [address] [place] [address] Scheduled Discharge Disposition: Discharged to home or self care (routine discharge) documented as of this encounter Visit Diagnoses Not on filedocumented in this encounter Additional Health Concerns Assessment Noted Time PHQ-9 Depression Total Score: 7 11/28/19 22 11:23 AM FINAL OPERATIONS TECHNICIAN PHQ-2 Depression Total Score: 1 11/28/19 22 11:23 AM FINAL OPERATIONS TECHNICIAN documented as of this encounter Care Teams Arc And Gas Welder Relationship Specialty Start Date End Date Bianca Cunningham PA-C [address] [place] [address] Home Receptionist Secretary Family Medicine 03/18/20 Audra Frye, PT [address] [place] [address] Physical Therapist Physical Therapy 02/27/22 documented as of this encounter
--- OUTSIDE RECORDS SUMMARY | 2023-11-24 08:03 | XMS_ITS | Encounter Summary ---
Author Name Unknown Organization [facility] Address [address] [place] [address] Phone Care Team Providers Care Insurance Coder Name Role Phone Bianca Cunningham PA-C Unavailable [phone] Audra Frye PT Unavailable [phone] Encounter Details Date Type Department Care Team (Latest Contact Info) Description 11/27/2022 Travel Social History Tobacco Use Types Packs/Day [...] suspected to have Coronavirus/COVID-19? No / Unsure 11/27/2022 8:02 AM PRECISION INSTRUMENT AND TOOL MAKER documented as of this encounter Plan of Treatment Upcoming Encounters Date Type Department Care Team ( Contact Info) Description 02/14/2024 9:30 AM CDT [facility] [address] [place] [address] Stew Davey MD [address] [place] [address] [address] [place] [address] Scheduled Discharge Disposition: Discharged to home or self care (routine discharge) documented as of this encounter Visit Diagnoses Not on filedocumented in this encounter Additional Health Concerns Assessment Noted Time PHQ-9 Depression Total Score: 7 11/28/19 22 11:23 AM PRECISION INSTRUMENT AND TOOL MAKER PHQ-2 Depression Total Score: 1 11/28/19 22 11:23 AM PRECISION INSTRUMENT AND TOOL MAKER documented as of this encounter Care Teams Insurance Coder Relationship Specialty Start Date End Date Bianca Cunningham PAMagaliC [address] [place] [address] Home Senior Wind Energy Consultant Family Medicine 03/18/20 Audra Frye, PT [address] [place], [place] [address] Physical Therapist Physical Therapy 02/27/22 documented as of this encounter
--- OUTSIDE RECORDS SUMMARY | 2023-11-24 08:03 | XMS_ITS | Encounter Summary ---
Author Name Unknown Organization [facility] Address [address] [place] [address] Phone Care Team Providers Care Voice Professor Name Role Phone Bianca Cunningham PA-C Unavailable [phone] Audra Frye PT Unavailable [phone] Reason for Visit * Prior Authorization (Routine) - Closed Specialty Diagnoses / Procedures Referred By Contac t Referred To Contact Physical Therapy / PHYSICAL MEDICINE AND REHAB Diagnoses Post-COVID chronic fatigue Decreased ROM of neck Impaired functional mobility, balance, gait, and endurance Procedures PT TREATMENT PLAN PT SUBSEQUENT TREATMENT PLAN Veronica Dugan, GENERATOR REPAIRER, BATCH UNLOADER [address] [place] [address] Vicenta Altamirano, PT [address] [place] [id number] Referral ID Status Reason Start Date Expiration Date Visits Re quested Visits Authorized [id number] Closed 12/18/2021 04/16/2023 12 50 Encounter Details Date Type Department Care Team (Latest Contact Info) Description 01/29/2023 8:00 AM CDT - 01/29/2023 11:59 PM CDT [facility] [address] [address] Provider, [place] [address] Audra Frye, PT [address] [place] [address] Discharge Disposition: Discharged to home or self [...] Sig Dispensed Refills Start Date End Date semaglutide-weight management (WEGOVY) 1 mg/0.5 mL subcutaneous [...] as of this encounter Miscellaneous Notes * Discharge non-MD/non-MONICA Summaries - Audra Frye, PT - 01/29/2023 8:00 AM CDT Images from the original note were not included. PHYSICAL THERAPY DISCHARGE SUMMARY & DAILY NOTE Eliana Solomon : 1955 Gender: female Date of Service: 01/29/2023 Start of Care: 12/18/21 Visit #: [id number] Missed Appointments: 0 Referring Diagnosis: PT Eval and Treat- Post-Acute Sequelae COVID-19 Treatment Diagnosis: Post-COVID chronic fatigue [R53.82, U09.9] - Primary Decreased ROM of neck [R29.898] Impaired functional mobility, balance, gait, and endurance [Z74.09] Treatment Summary Due: 02/06/23 Certification Period: 12/09/22-03/08/23 Onset Date: 11/28/21 date of referral Dates of Recent Hospitalization: No overnight admissions Referring Provider: Veronica Dugan APRN, CNP Current Precautions/Contraindications: Shortness of breath Post-acute sequelae of COVID-19 (PASC) Post viral syndrome Mood changes Postviral fatigue syndrome Cognitive change Dizziness Muscle pain Arthralgia, unspecified joint [facility] Utilities Operator: no SUBJECTIVE: Has not been feeling well since increasing dosage of Wegovie She has been almost constantly nauseous and not able to eat more than small amounts of food She is in contact with her doctor about this She has not been able to do exercises at home with bands Has been able to do a few circles in her house Inquires about pausing PT for now until she is feeling better Started group visits for long-COVID OBJECTIVE: Use of 4WW BP HR SPO2 Symptoms Resting Fatigue, nauseous TREATMENT TODAY: Self-Care: (24 minutes) The following was discussed and patient educated on: -side effects of Wegovie and effects on exercise -differences in metabolism and caloric intake can lead to decreased energy levels -importance of taking to doctor regarding any further changes or lack of improvements with her current symptoms -continuation of long-covid classes for education -continuation of pacing with exercises at home to increase tolerance slowly -start with 3 laps walking, increase only by a few laps as able -yellow band to red band to green band -continue to follow 2/10 point rule for fatigue -importance of not over-doing it, dont want to trigger NS and delay progress -PT plan going forward -D/C today, will return once increased energy levels with Wegovie, tolerance to activity Total Treatment Time: 24 minutes DISCHARGE ASSESSMENT: This is patients 38th PT appointment. Patient has made good progress since starting PT, especially in the last few months with her new ability to tolerate walking from parking garage into work officewith use of 4WW and not needing to take a break. Since having covid patient had not been able to dothis, has been very happy with this progress. However, in the last weeks she has been having decreased energy levels, high fatigue, and nauseous since being on Wegovie for weight loss. Patient has not been able to complete HEP and feels overall that her tolerance to exercise is minimal at this timeand wishes to return to PT once she has adapted to this medication change and has improved tolerance to activity where she could tolerate PT sessions. PT in agreement. Will discharge patient from PT,patient is aware that can get new referral for PT services when she feels appropriate as discussed above. Goals: 1) Pt to independently demonstrate HEP [...] to try to achieve weekly in sessions 01/29/2023: not able to complete consistently, the last few weeks unable to tolerate PT sessions dueto symptoms since starting Wegovie. 6) GOAL ADDED: Patient will score 27/30 [...] 12/04/2022: in progress, will continue to address 01/29/2023: not assessed, but with use of 4WW feeling with balance, no recent episodes of vertigo for >2 months 7) GOAL ADDED: Demonstrate ability to ambulate [...] 345 meters today with use of 4WW 01/29/2023: not met, has not limited to only use of NuStep due to symptoms from Wegovie and overall long-covid fatigue Goals to be updated and/or modified as appropriate pending pt progress. PLAN: D/C from PT HEP: -balance head turns and weight shifting [...] pulses: hip abduction, extension, marches, fire hydrant ADDED 01/29 -gradual increase in walking distance -2/10 point fatigue scale -increase resistance with bands, starting with yellow Physical Therapist: Audra Frye, PT, 01/29/2023 8:56 AM [place] License #: [id number] documented in this encounter Plan of Treatment Upcoming Encounters Date Type Department Care Team (Late st Contact Info) Description 02/14/2024 9:30 AM CDT [facility] [address] [place] [address] Stew Davey MD [address] [facility] [address] [place], [place] [id number] Scheduled Discharge Disposition: Discharged to home or self care (routine discharge) documented as of this encounter Visit Diagnoses Diagnosis Long COVID- Primary documented in this encounter Additional Health Concerns Assessment Noted Time PHQ-9 Depression Total Score: 7 11/28/19 22 11:23 AM MANAGER HEAVY EQUIPMENT PHQ-2 Depression Total Score: 1 11/28/19 22 11:23 AM MANAGER HEAVY EQUIPMENT documented as of this encounter Care Teams Voice Professor Relationship Specialty Start Date End Date Bianca Cunningham PA-C [address] [place] [phone] Home Color Maker Formulator Family Medicine 03/18/20 Audra Frye, PT [address] [place], [place] [address] Physical Therapist Physical Therapy 02/27/22 documented as of this encounter
--- OUTSIDE RECORDS SUMMARY | 2023-11-24 08:03 | XMS_ITS | Clinical Summary ---
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 Medications Medication Sig Dispensed Refills Start Date End Date Status MULTIVITAMIN TAB take 1 tablet by oral route once daily with food 0 04/04/2008 Active calcium phosphate-vitamin D3 250 mg-12.5 mcg (500 unit) chew Chew 2 Tablets by mouth. 0 Active durable medical equipment (DME)Indications:E ssential hypertension Blood pressure cuff and machine. 1 Each 0 05/08/2022 Active tamoxifen (NOLVADEX) 20 mg tablet Take 1 Tablet (20 mg) by mouth once daily. 0 12/23/2022 Active allopurinoL (ZYLOPRIM) 100 mg tabletIndications: Gout, unspecified cause, unspecified chronicity, unspecified site Take 2 Tablets (200 mg) by mouth once daily. 180 Tablet 3 03/03/2023 Active amLODIPine (NORVASC) 5 mg tabletIndications: Essential hypertension Take 1 Tablet (5 mg) by mouth once daily. 90 Tablet 3 03/03/2023 Active gabapentin (NEURONTIN) 600 mg tabletIndications: Neck pain Take 1 Tablet (600 mg) by mouth at bedtime. 90 Tablet 3 03/03/2023 Active losartan (COZAAR) 100 mg tabletIndications: Essential hypertension Take 1 Tablet (100 mg) by mouth once daily. 90 Tablet 3 03/03/2023 Active metoprolol succinate (TOPROL XL) 50 mg sustained-release tabletIndications: Essential hypertension Take 1 Tablet (50 mg) by mouth once daily. 90 Tablet 3 03/03/2023 Active DULoxetine (CYMBALTA) 60 mg Delayed-release capsuleIndications :COVID-19 karla anderson TAKE ONE CAPSULE BY MOUTH ONCE DAILY 90 Capsule 0 11/14/2023 Active DULoxetine (CYMBALTA) 60 mg Delayed-release capsuleIndications :COVID-19 karla anderson TAKE ONE CAPSULE BY MOUTH ONCE DAILY 90 Capsule 0 08/15/2023 Discontinued Active Problems Problem Noted Date Diagnosed Date Uses roller walker 08/27/2023 Imbalance 08/27/2023 Dizziness 08/27/2023 SALIMA (obstructive sleep apnea) 03/03/2023 Appendicitis 02/02/2022 COVID-19 karla anderson 02/02/2022 Mild persistent asthma 02/02/2022 Perforated appendicitis 02/02/2022 S/P laparoscopic appendectomy 02/02/2022 Vitamin D deficiency 12/24/2020 Hyperlipidemia 08/04/2018 Screening for osteoporosis 07/08/2015 Overview: Normal 06/2015 repeat 5-7 yrs Screening for malignant neoplasm of the cervix 0 06/27/2015 Morbid obesity 04/22/2012 Acne 04/14/2012 Neck pain 11/14/2009 LYONS (dyspnea on exertion) 02/08/2009 FH: osteoporosis 10/30/2008 Unspecified essential hypertension 09/05/2007 Dysthymic disorder 09/05/2007 Encounters Date Type Department Care Team Description 11/13/2023 Refill [facility] [address] [place] [address] Yudith Fontenot MD Refill Request (Duloxetine) 08/27/2023 1:20 PM ROLLER SETTER Office Visit [facility] [address] [facility] [place] [address] Vivian Dejesus, DO Form (Handicap renewal) 08/26/2023 Travel 08/25/2023 8:15 AM ROLLER SETTER Nurse/Clinic Staff Only [facility] [address] [facility] [address] 08/25/2023 Telephone [facility] [address] [place] [address] Yudith Fontenot MD Questions 08/25/2023 Travel from Last 3 Months Immunizations Name Administration Dates Next Due COVID-19 vaccine (Ortho [facility] NTCloudByte 30mcg/0.3mL) PF, MDV 11/08/2020,10/15/2020 Hepatitis B (Adult) 03/23/2005 Influenza A (H1N1), Inactiva francine (Age 6-35 Mos) 08/29/2009 Influenza Virus, Unspecified 07/25/2019, 08/17/2016,09/05/2015,2009 Influenza, IIV3 (Age >=3 years) 08/02/20 18,08/17/2016,07/23/2014,2009 Influenza, IIV4 07/14/2022, 0,08/02/2018,2013 Influenza, IIV4 (=>6mos) MDV 07/24/2021,09/05/20 15 Influenza, Inactivated AIIV4 (Age 65+ Years) Preserv Free 08/25/2023 Pneumococcal Conj 20-valent (Prevnar 20) 03/03/2023 Td (Age >=7 Years) 12/13/1999 Td, Preservative Free (age > = 7 Years) 12/13/1999 Tuberculin (PPD) 02/28/2016, 2,05/19/2011,2009,05/28/2009 Zoster (Shingrix-RZV, recombinant) 10/19/2019, Family History Medical History Relation Name Comments Other Brother 2 Andi para secondary to accident Cancer-prostate Father Heart Disease Father age 42, CABG X 6 vessels Cancer-breast Maternal Grandmother Cancer-breast Mother age 60 Heart Disease Mother age 72 CABG Unknown Paternal Grandmother sudden age 62 Good Health Sister 2 Rosemarie Relation Name Status Comments Brother 1 Alive Brother 2 Andi Father Maternal Grandmother Mother Alive Paternal Grandmother Sister 1 Alive Sister 2 Rosemarie Social History Tobacco Use Types Packs/Day Years Used Date Smoking Tobacco: Never Smokeless Tobacco: Never Tobacco Cessation:Counseling Given: Yes Alcohol Use Standard Drinks/Week Comments Yes 0 (1 standard drink = 0.6 oz pur e alcohol) very occasional PHQ-2 Answer Date Recorded PHQ-2 TOTAL SCORE 0 08/29/2021 Social Connections Answer Date Recorded Frequency of Communication with Friends and Fami ly Not on file 10/08/2021 Financial Resource Strain Answer Date R ecorded Difficulty of Paying Living Expenses Not on file 10/08/2021 Difficulty of Paying Living Expenses Not on file 10/08/2021 Sex and Gender Information Value Date Recorded Sex Assigned at Not on file Gender Identity Not on file Sexual Orientation Not on file Obstetrics History Para Term AB IAB SAB Ectopic Multiple Livin g Live Births 0 0 Last Filed Vital Signs Vital Sign Reading Time Taken Comments Blood Pressure 140/82 08/27/2023 1:29 PM ROLLER SETTER Pulse 81 08/27/2023 1:24 PM ROLLER SETTER Temperature 36.8 ??C (98.2 ??F) 04/08/2023 1:33 PM CD T Respiratory Rate 18 06/27/2015 10:01 AM CDT Oxygen Saturation 96% 08/27/2023 1:24 PM ROLLER SETTER Inhaled Oxygen Concentration - - Weight 115.7 kg (255 lb) 08/27/2023 1:24 PM ROLLER SETTER Height 160 cm (5' 3) 03/03/2023 2:07 PM CDT Body Mass Index 45.17 03/03/2023 2:07 PM CDT Plan of Treatment Health Maintenance Due Date Last Done Comments COVID-19 vaccine series (3 - Pfizer risk series) 12/06/2020 11/08/2020, 10/15/2020 Depression screening for age 12+ 08/26/2022 08/26/2021, 08/07/2020, 08/07/2020, Additional history exists BMI (ht and wt on same day) for age 18+ 03/03/2024 03/03/2023, 03/06/2021, 08/07/2020, Additional history exists Mammogram for age 45-75 05/19/2024 05/19/20 23, 05/13/2022 (Completed outside of [facility]), 04/24/2021, Additional history exists Fecal testing sDNA-FIT ([place] guard) for age 45-75 03/09/2025 03/09/2022 Lipids for age 45-75 03/03/2028 03/03/2023, 02/02/2022, 08/07/2020, Additional history exists Hepatitis C screening for ag e 18-79 Completed 05/01/2014 Zoster (shingles) series for age 50+ Completed 10/19/2019, 08/16/2019 Pneumococcal series for age 65+ Completed DEXA/DXA scan for age 65+ Completed 2022, 06/28/2015, 12/23/2012, Additional history exists Influenza for age 65+ Completed 08/25/2023 , 07/14/2022, 07/24/2021, Additional history exists Advance Directives Latest Code Status on File Code Status Date Activated Date Inactivated Comments Full Code 10/28/2006 8:24 PM 10/29/2006 4:55 PM Code Status History Code Status Date Activated Date Inactivated Comments Full Code 10/28/2006 11:22 AM 10/28/2006 8:24 PM Care Teams Film Waxer Relationship Specialty Start Date End Date Yudith Fontenot MD [address] [place] [address] PCP - General Family Practice 02/04/23
--- OUTSIDE RECORDS SUMMARY | 2023-11-24 08:03 | XMS_ITS | Encounter Summary ---
Author Name Unknown Organization [facility] [place] Address [address] [place] [address] Phone Care Team Providers Care Script Girl Name Role Phone Bainca Cunningham PA-C Unavailable [phone] Audra Frye PT Unavailable [phone] Encounter Details Date Type Department Care Team (Latest Contact Info) Description 01/01/2023 Travel Social History Tobacco Use Types Packs/Day [...] suspected to have Coronavirus/COVID-19? No / Unsure 01/01/2023 8:18 AM CDT documented as of this encounter Plan of Treatment Upcoming Encounters Date Type Department Care Team ( st Contact Info) Description 02/14/2024 9:30 AM CDT [facility] [address] [place] [address] Stew Davey MD [address] [place] [address] [address] [place] [address] Scheduled Discharge Disposition: Discharged to home or self care (routine discharge) documented as of this encounter Visit Diagnoses Not on filedocumented in this encounter Additional Health Concerns Assessment Noted Time PHQ-9 Depression Total Score: 7 11/28/19 22 11:23 AM ELEVATOR WORKER PHQ-2 Depression Total Score: 1 11/28/19 22 11:23 AM ELEVATOR WORKER documented as of this encounter Care Teams Script Girl Relationship Specialty Start Date End Date Bianca Cunningham PA-C [address] [place] [address] Home Stage Electrician Helper Family Medicine 03/18/20 Audra Frye, PT [address] [place], [place] [address] Physical Therapist Physical Therapy 02/27/22 documented as of this encounter
--- OUTSIDE RECORDS SUMMARY | 2023-11-24 08:03 | XMS_ITS | Encounter Summary ---
Author Name Unknown Organization [facility] Address [address] [facility] [place] [place] [address] Phone Care Team Providers Care Embossing Toolsetter Name Role Phone Bianca Cunningham PAMagaliC Unavailable [phone] Audra Frye PT Unavailable [phone] Reason for Visit * Prior Authorization (Routine) - Closed Specialty Diagnoses / Procedures Referred By Contac t Referred To Contact Physical Therapy / PHYSICAL MEDICINE AND REHAB Diagnoses Post-COVID chronic fatigue Decreased ROM of neck Impaired functional mobility, balance, gait, and endurance Procedures PT TREATMENT PLAN PT SUBSEQUENT TREATMENT PLAN Veronica Dugan, PRODUCT DEVELOPMENT INTERN, REPOSSESSOR [address] [place] [address] Vicenta Altamirano, PT [address] [place] [id number] Referral ID Status Reason Start Date Expiration Date Visits Re quested Visits Authorized [id number] Closed 12/18/2021 04/16/2023 12 50 Encounter Details Date Type Department Care Team (Latest Contact Info) Description 11/27/2022 8:00 AM CORRECTIONS IDENTIFICATION TECHNICIAN - 11/27/2022 11:59 PM CORRECTIONS IDENTIFICATION TECHNICIAN Hospital Encounter [facility] [address] [address] Provider, [place] [address] Audra Frye, PT [address] [place] [address] Discharge Disposition: Discharged to home or self [...] Coronavirus/COVID-19? No / Unsure 11/27/2022 8:02 AM CORRECTIONS IDENTIFICATION TECHNICIAN documented as of this encounter Medications at [...] Progress Notes * Audra Frye, PT - 11/27/2022 8:00 AM CST Images from the original note were not included. PHYSICAL THERAPY DAILY NOTE Eliana Solomon : 1955 Gender: female Date of Service: 11/27/2022 Start of Care: 12/18/21 Visit #: 32 Missed Appointments: 0 Referring Diagnosis: PT Eval and Treat- Post-Acute Sequelae COVID-19 Treatment Diagnosis: Post-COVID chronic fatigue [R53.82, U09.9] - Primary Decreased ROM of neck [R29.898] Impaired functional mobility, balance, gait, and endurance [Z74.09] Treatment Summary Due: 11/08/22 Certification Period: 10/08/22-12/09/22 Onset Date: 11/28/21 date of referral Dates of Recent Hospitalization: No overnight admissions Referring Provider: Veronica Dugan APRN, CNP Current Precautions/Contraindications: Shortness of breath Post-acute sequelae of COVID-19 (PASC) Post viral syndrome Mood changes Postviral fatigue syndrome Cognitive change Dizziness Muscle pain Arthralgia, unspecified joint [facility] Stitch Bonding Machine Tender: no SUBJECTIVE: Has been more tired this week, hit her on Wednesday/Wednesday On Wednesday she started Wegovie Starting in December she is not working on Wednesdays OBJECTIVE: Use of 4WW BP HR SPO2 Symptoms Resting 127/90 84 96% 10 After NuStep NT NT NT 01/25, reporting that she would like to go to bed TREATMENT TODAY: NMR: (42 minutes) Objective measures taken above. -not able to get second BP reading due to machine NuStep performed with recumbent stepper machine with bilateral UE and bilateral LE use for strengthening and CV endurance -level 4, 25 minutes -SPM: 45-55 -distance 0.97 miles Did not have increases in her fatigue levels with this Discussed the following: -current fatigue symptoms -pacing with activities at work and home to help with fatigue -role of total body inflammation and fatigue, NS overdrive and immune system taxing -Whole30 implementation for potential for entering the long-COVID study Total Treatment Time: 42 minutes ASSESSMENT: Patient presented today reporting higher fatigue levels today, this week she has been lower energy levels after last week having good energy and doing more. In today's session patient performed progression on NuStep, as she was not able or up to doing the 6 minute walk due to extra exertion needed for that. We did discuss role of total body inflammation in fatigue that is affecting her activity levels. Did discuss potential for patient to be a part of the long- COVID study with Dr. Khadijah Bearden, will send a message to her regarding this. Patient continues to progress towards therapy goals [...] in progress, will continue with addressing this 6) GOAL ADDED: Patient will score 27/30 on FGA in order to improve safety with ambulation in the home and at work by 01/06/23. 04/24/2022: in progress 07/17/2022: in progress, see last testing score 07/22/2022: in progress, have been performing balance interventions 09/18/2022: in progress, today on FGA today 10/07/2022: in progress, will continue to address 7) [...] scored 350 today with improved fatigue levels Goals to be updated and/or modified as [...] stair exercises Physical Therapist: Audra Frye, PT, 11/27/2022 8:58 AM [place] License #: [id number] ECTIONS IDENTIFICATION TECHNICIAN documented in this encounter Plan of Treatment Upcoming Encounters Date Type Department Care Team (Late st Contact Info) Description 02/14/2024 9:30 AM CDT [facility] [address] [place] [address] Stew Davey MD [address] [facility] [address] [place] [address] Scheduled Discharge Disposition: Discharged to home or self care (routine discharge) documented as of this encounter Visit Diagnoses Diagnosis Long COVID documented in this encounter Additional Health Concerns Assessment Noted Time PHQ-9 Depression Total Score: 7 11/28/19 22 11:23 AM CORRECTIONS IDENTIFICATION TECHNICIAN PHQ-2 Depression Total Score: 1 11/28/19 22 11:23 AM CORRECTIONS IDENTIFICATION TECHNICIAN documented as of this encounter Care Teams Embossing Toolsetter Relationship Specialty Start Date End Date Bianca Cunningham PAMagaliC [address] [place] [phone] Home Compensation Administrator Family Medicine 03/18/20 Audra Frye, PT [address] [place] [address] Physical Therapist Physical Therapy 02/27/22 documented as of this encounter
--- OUTSIDE RECORDS SUMMARY | 2023-11-24 08:03 | XMS_ITS | Encounter Summary ---
Author Name Unknown Organization [facility] Address [address] [place] [address] Phone Care Team Providers Care Hasher Machine Operator Name Role Phone Bianca Cunningham PA-C Unavailable Audra Frye PT Unavailable [phone] Encounter Details Date Type Department Care Team (Latest Contact Info) Description 01/08/2023 Travel Social History Tobacco Use Types Packs/Day [...] & [facility]ty Center Pul[facility] Clinic [address] [place] [address] Stew Davey MD [address] [place] [address] [address] [place] [address] Scheduled Discharge Disposition: Discharged to home or self care (routine discharge) documented as of this encounter Visit Diagnoses Not on filedocumented in this encounter Additional Health Concerns Assessment Noted Time PHQ-9 Depression Total Score: 7 11/28/19 22 11:23 AM TOE PULLER PHQ-2 Depression Total Score: 1 11/28/19 22 11:23 AM TOE PULLER documented as of this encounter Care Teams Hasher Machine Operator Relationship Specialty Start Date End Date Bianca Cunningham PA-C [address] [place] [address] Home Recovery Room Rn Family Medicine 03/18/20 Audra Frye, PT [address] [place], [place] [address] Physical Therapist Physical Therapy 02/27/22 documented as of this encounter
--- OUTSIDE RECORDS SUMMARY | 2023-11-24 08:03 | XMS_ITS | Encounter Summary ---
Author Name Unknown Organization [facility] Address [address] [place] [address] Phone Care Team Providers Care Machine Plaster Mixer Name Role Phone Bianca Cunningham PA-C Unavailable [phone] Audra Frye PT Unavailable [phone] Encounter Details Date Type Department Care Team (Latest Contact Info) Description 12/18/2022 Travel Social History Tobacco Use Types Packs/Day [...] Coronavirus/COVID-19? 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 documented as of this encounter Plan of Treatment Upcoming Encounters Date Type Department Care Team ( Contact Info) Description 02/14/2024 9:30 AM CDT [facility] [address] [place] [address] Stew Davey MD [address] [place] [address] [address] [place] [address] Scheduled Discharge Disposition: Discharged to home or self care (routine discharge) documented as of this encounter Visit Diagnoses Not on filedocumented in this encounter Additional Health Concerns Assessment Noted Time PHQ-9 Depression Total Score: 7 11/28/19 22 11:23 AM SUPERVISOR PRINTING AND STAMPING PHQ-2 Depression Total Score: 1 11/28/19 22 11:23 AM SUPERVISOR PRINTING AND STAMPING documented as of this encounter Care Teams Machine Plaster Mixer Relationship Specialty Start Date End Date Bianca Cunningham PAMagaliC [address] [place] [address] Home Pyridine Recovery Operator Family Medicine 03/18/20 Audra Frye, PT [address] [place], [place] [id number] Physical Therapist Physical Therapy 02/27/22 documented as of this encounter
--- OUTSIDE RECORDS SUMMARY | 2023-11-24 08:03 | XMS_ITS | Encounter Summary ---
Author Name Unknown Organization [facility] Address [address] [place] [address] Phone Care Team Providers Care Community Health Program Coordinator Name Role Phone Bianca Cunningham PAMagaliC Unavailable [phone] Audra Frye PT Unavailable [phone] Reason for Visit * Prior Authorization (Routine) - Closed Specialty Diagnoses / Procedures Referred By Contac t Referred To Contact Physical Therapy / PHYSICAL MEDICINE AND REHAB Diagnoses Post-COVID chronic fatigue Decreased ROM of neck Impaired functional mobility, balance, gait, and endurance Procedures PT TREATMENT PLAN PT SUBSEQUENT TREATMENT PLAN Veronica Dugan, CHIROPRACTOR SOLE PRACTITIONER, SECURITY SOLUTIONS ENGINEER [address] [place] [address] Vicenta Altamirano, PT [address] [place] [address] Referral ID Status Reason Start Date Expiration Date Visits Re quested Visits Authorized [id number] Closed 12/18/2021 04/16/2023 12 50 Encounter Details Date Type Department Care Team (Latest Contact Info) Description 01/01/2023 8:00 AM CDT - 01/01/2023 11:59 PM CDT Hospital Encounter [facility] [address] [address] Bhargav Huber MD [address] [place] [address] Audra Frye, PT [address] [place] [address] Discharge Disposition: Discharged to home or self [...] as of this encounter Progress Notes * Devon Fryeanda, PT - 01/01/2023 8:00 AM CDT Images from the original note were not included. 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, U09.9] - Primary Decreased ROM of neck [R29.898] Impaired functional mobility, balance, gait, and endurance [Z74.09] Treatment Summary Due: 01/06/23 (ORDER NEEDED, no re-cert) Certification Period: 12/09/22-03/08/23 Onset Date: 11/28/21 date of referral Dates of Recent Hospitalization: No overnight admissions Referring Provider: Veronica Dugan APRN, SECURITY SOLUTIONS ENGINEER Current Precautions/Contraindications: Shortness of breath Post-acute sequelae of COVID-19 (PASC) Post viral syndrome Mood changes Postviral fatigue syndrome Cognitive change Dizziness Muscle pain Arthralgia, unspecified joint [facility] Diabetes Specialist: no SUBJECTIVE: Has been very fatigued this week after daylight savings time Feeling like she could go to be the rest of the day Feels that this is a pattern when she is off work for a period of time She also stays up very late at this time Has to adjust back to the time difference OBJECTIVE: Use of 4WW BP HR SPO2 Symptoms Resting 134/90 88 4-5/10 fatigue After NuStep 148/77 89 4-5/10 fatigue TREATMENT TODAY: Therapeutic Exercise: (33 minutes) Objective measures taken above. NuStep performed with recumbent stepper machine with bilateral UE and bilateral LE use for strengthening and CV endurance -level 4, 12 minutes -SPM: ~65 -distance : 0.53 miles Did not have increases in her fatigue levels with this -leg press machine performed: -normal reps #140 X 10 X 2 sets -normal reps #160 X 10 X 2 set Cues for parallel knees and feet, slow controlled descent Tactile cues to prevent B knee valgus Demonstrating ability to maintain knee positioning, reporting hip adductors feeling muscle soreness. Total Treatment Time: 33 minutes ASSESSMENT: Patient presented today reporting high levels of fatigue today. In today's session patient performed NuStep due to high levels of fatigue, unable to perform 6 minute walk test due to fatigue. [facility]ble [facility] leg press machine at 140# with no increases in fatigue level with this. Patient continues to progress towards therapy [...] -hip abduction RTB -fire hydrant RTB ADDED /6 -forward step taps -lateral step ups -hip hikes ADDED 2/3 -increased reps on stair exercises Physical Therapist: Audra Frye, PT, 01/01/2023 8:51 AM [place] License #: [id number] documented in this encounter Plan of Treatment Upcoming Encounters Date Type Department Care Team (Late st Contact Info) Description 02/14/2024 9:30 AM CDT [facility] [address] [address] Stew Davey MD [address] [place] [address] [address] [place] [address] Scheduled Discharge Disposition: Discharged to home or self care (routine discharge) documented as of this encounter Visit Diagnoses Not on filedocumented in this encounter Additional Health Concerns Assessment Noted Time PHQ-9 Depression Total Score: 7 11/28/19 22 11:23 AM ROTARY DRYER OPERATOR PHQ-2 Depression Total Score: 1 11/28/19 22 11:23 AM ROTARY DRYER OPERATOR documented as of this encounter Care Teams Community Health Program Coordinator Relationship Specialty Start Date End Date Bianca Cunningham PA-C [address] [place] [address] Home Account Manager Sales Representative Family Medicine 03/18/20 Audra Frye, PT [address] [place] [address] Physical Therapist Physical Therapy 02/27/22 documented as of this encounter
--- NOTE | 2023-11-24 08:15 | CRLHL7_ITS ---
For Patients: As a result of the Century Cures Act, medical imaging exams and procedure reports are released immediately into your electronic medical record. You may view this report before your referring provider. If you have questions, please contact your health care provider. BILATERAL BREAST MRI WITHOUT AND WITH GADOLINIUM CLINICAL HISTORY: At increased risk for breast cancer due to strong family history of breast cancer. No current breast related concerns. INDICATION FOR BREAST MRI: High-risk screening breast MRI. COMPARISON STUDIES: Mammograms 05/19/2023 and 05/13/2022. Breast MRI 10/26/2022. CONTRAST: 20 mL Dotarem. TECHNIQUE: The patient was positioned prone using a breast coil. Multiple imaging sequences were obtained using 1-1.5 mm thick slices with no gap. The image sequences include T2-weighted STIR in the axial plane, T1-weighted nonfat-saturated gradient echo in the axial plane, pre- and post-contrast T1-weighted FLASH 3D with fat suppression in the axial plane, and T1-weighted FLASH high resolution 3D with fat suppression in the sagittal plane. Image post-processing was performed on a [employer] workstation. Complex 3D rendering including maximum intensity projections (MIPS) and volumetric renderings were obtained to optimize visualization of the extent of pathology and relationship to the nipple, skin, and chest wall. This aids in determining feasibility of breast conservation surgery. Subtraction, multiplanar reconstruction, mean curve determination, and angiogenesis mapping were also performed. The study was technically adequate. FINDINGS: Amount of Fibroglandular Tissue: Scattered fibroglandular tissue. Breast Background Enhancement: Moderate. RIGHT Breast: There is no suspicious mass or enhancement within the breast. LEFT Breast: There is no suspicious mass or enhancement within the breast. Lymph Nodes: No abnormal morphology lymph nodes. IMPRESSIONS AND RECOMMENDATIONS: 1. No MRI evidence of malignancy in either breast. 2. Annual screening mammography is recommended. If clinically indicated, continued screening breast MRI may also be performed, staggered at six-month intervals with screening mammography. BI-RADS Category 1: Negative Dictated by Sakshi Sanchez MD @ 11/26/2023 11:18:50 AM [email or web address]/Dictated by: Sakshi Sanchez MD @ 11/26/2023 11:18:00 AM (Electronically Signed)
== END 2023-11-24 08:00 | disposition home or self-care (01) ==
LOC: MRI 08:00
PROVIDERS: PCP Family Medicine; Visit Provider Internal Medicine Hematology & Oncology
DX: Z12.39 Encounter for other screening for malignant neoplasm of breast (principal); Z15.01 Genetic susceptibility to malignant neoplasm of breast
CPT/HCPCS: 77049; A9575

== ENCOUNTER 2024-02-09 14:05 | Outpatient (RCR) | payer OTHER, SELFPAY | END 2024-08-07 23:59 | disposition home or self-care (01) | LOC: CCIC 14:05 | PROVIDERS: PCP Family Medicine; Visit Provider Internal Medicine Hematology & Oncology | DX: Z15.01 Genetic susceptibility to malignant neoplasm of breast (principal); Z80.3 Family history of malignant neoplasm of breast; Z80.42 Family history of malignant neoplasm of prostate | CPT/HCPCS: 99213; 99214; G0463 ==

== ENCOUNTER 2024-05-24 09:47 | Outpatient (CLI) | payer OTHER, SELFPAY ==
--- OUTSIDE RECORDS SUMMARY | 2024-05-24 09:50 | XMS_ITS | Encounter Summary ---
Author Organization [facility] Address [address] [place] [place] [address] Phone Care Team Providers Care Pharmaceutical Scientist Name Role Phone Audra Frye PT Unavailable [phone] Stew Davey MD Unavailable [phone] Encounter Details Date Type Department Care Team (Latest Contact Info) Description 02/14/2024 Travel Social History Tobacco Use Types Packs/Day Years Used Date Smoking Tobacco: Never Smokeless Tobacco: Never Alcohol Use Standard Drinks/Week Comments No 0 (1 standard drink = 0.6 oz pur e alcohol) PHQ-2 Answer Date Recorded PHQ-2 Subtotal 0 12/15/2023 Sex and Gender Information Value Date Recorded Sex Assigned at Female 03/08/2022 12:19 PM CDT Gender Identity Female 03/08/2022 12:19 PM CDT Sexual Orientation Straight 03/08/2022 12 :19 PM CDT documented as of this encounter Plan of Treatment Not on file documented as of this encounter Visit Diagnoses Not on filedocumented in this encounter Additional Health Concerns Assessment Noted Time PHQ-9 Depression Total Score: 7 11/28/19 22 11:23 AM TEMPLATE MAKER PHQ-2 Depression Total Score: 0 12/15/19 24 10:36 AM TEMPLATE MAKER documented as of this encounter Care Teams Pharmaceutical Scientist Relationship Specialty Start Date End Date Audra Frye, PT [address] [place] [address] Physical Therapist Physical Therapy 02/27/22 Stew Davey MD [address] [place] [address] Pulmonary 10/25/23 documented as of this encounter
--- OUTSIDE RECORDS SUMMARY | 2024-05-24 09:50 | XMS_ITS | Clinical Summary ---
Author Organization [employer] [facility] Address [place], [place] [address] Care Team Providers [place] Name Role Phone Yudith Fontenot MD Primary Care Provider [phone] Cici Dean BRASS ROLLER Unavailable [phone] Allergies Active Allergy Reactions Criticality Noted Date [...] unit) chew Chew 2 Tablets by mouth. Active durable medical equipment (DME)Indications:Es sential hypertension Blood pressure cuff and machine. 1 Each 05/08/2022 Active tamoxifen (NOLVADEX) 20 mg tablet Take 1 Tablet (20 mg) by mouth once daily. 0 12/23/2022 Active allopurinoL (ZYLOPRIM) 100 mg tabletIndications:G out, unspecified cause, unspecified chronicity, unspecified site Take 2 Tablets (200 mg) by mouth once daily. 200 Tablet 3 02/09/2024 Active amLODIPine (NORVASC) 10 mg tabletIndications:E ssential hypertension Take 1 Tablet (10 mg) by mouth once daily. 100 Tablet 3 02/09/2024 Active DULoxetine (CYMBALTA) 60 mg Delayed-release capsuleIndications: COVID-19 long hauler Take 1 Capsule (60 mg) by mouth once daily. 100 Capsule 3 02/09/2024 Active losartan (COZAAR) 100 mg tabletIndications:E ssential hypertension Take 1 Tablet (100 mg) by mouth once daily. 100 Tablet 3 02/09/2024 Active metoprolol succinate (TOPROL XL) 50 mg sustained-release tabletIndications:E ssential hypertension Take 1 Tablet (50 mg) by mouth once daily. 100 Tablet 3 02/09/2024 Active gabapentin (NEURONTIN) 600 mg tabletIndications:N heather pain Take 1 Tablet (600 mg) by mouth at bedtime. 100 Tablet 3 02/09/2024 Active timolol hemihydrate (BETIMOL) 0.25 % ophthalmic solution Place 1 Drop into right eye once daily. Active metFORMIN (GLUCOPHAGE XR) 500 mg Extended-Release tabletIndications:M orbid obesity with BMI of 40.0-44.9, adult (HC) Take 1 tablet (500mg) oral with a meal for 2 weeks then if tolerating okay increase to 2 tablets (1000mg) oral with meal. 180 Tablet 05/09/2024 Active Active Problems Problem Noted Date Diagnosed Date [...] Encounters Date Type Department Care Team Description 05/10/2024 2:30 PM CDT Telemedicine [address] [address] Error-please disregard 05/10/2024 Travel 05/09/2024 1:00 PM CDT Telemedicine [address] [place] [address] Cici Dean, BRASS ROLLER Telehealth (No vitals taken); Weight (MWL follow up) 05/09/2024 Travel 04/05/2024 1:30 PM CDT Telemedicine [facility] [address] [place] [address] Cici Dean, BRASS ROLLER Telehealth (No vitals taken); Weight (MWL follow up); Error-please disregard (appt cancellation) 04/05/2024 9:15 AM CDT Orders Only [facility] [address] [place] [address] Lab 04/05/2024 Travel 03/29/2024 1:00 PM CDT Telemedicine [address] [place] [address] Medical Nutrition Therapy (OPTI.1) 03/26/2024 Travel 03/24/2024 Orders Only [facility] [address] [facility] [place] [address] Yudith Fontenot MD 1 scan: (1-Ord) NFLD-EKG-03/22/24 03/22/2024 4:00 PM CDT Office Visit [facility] [address] [place] [address] Burke Nava MD Consult (Referred by primary for fatty liver) 03/22/2024 3:45 PM CDT Orders Only [facility] [address] [facility] [place] [address] Lab, [place] Lab 03/22/2024 2:45 PM CDT Office Visit [facility] [address] [place] [address] Yudith Fontenot MD Lab; Cardiovascular Diagnostic Testing (EKG weight loss program) 03/22/2024 Travel 03/08/2024 1:00 PM CDT Telemedicine [facility] [address] [place] [address] Cici Dean NP Telehealth (No vitals taken); Weight (MWL Initial) 03/08/2024 Telephone [facility] [address] [place] [place] [address] Yudith Fontenot MD Appointment Request (EKG needed ) 03/08/2024 Travel from Last 3 Months Immunizations Name Administration Dates Next Due COVID-19 vaccine (Zhilian Zhaopin 30mcg/0.3mL) PF, MDV 11/08/2020,10/15/2020 Hepatitis B (Adult) 03/23/2005 Influenza A (H1N1), Inactiva francine (Age 6-35 Mos) 08/29/2009 Influenza Virus, Unspecified 07/24/2021, 07/25/2019,07/25/2019,2015,08/17/2016,07/30/2016,09/05/2015,1 11/05/2014,07/31/2010,07/31/2010, 009 Influenza, IIV3 (Age >=3 years) 08/02/20 18,08/17/2016,07/23/2014,2009 [...] Answer Date Recorded PHQ-2 TOTAL SCORE 0 02/09/2024 Social Connections Answer Date Recorded Frequency of Communication with Friends and Fami ly 0 02/09/2024 Financial Resource Strain Answer Date R ecorded Difficulty of Paying Living Expenses 3 02/09/2024 Difficulty of Paying Living Expenses Not on file 02/09/2024 Food Insecurity Answer Date Recorded Worried About Running Out of Food in the Last Ye ar 1 02/09/2024 Transportation Needs Answer Date Record ed Lack of Transportation (Medical) 1 02/09/2024 Housing Stability Answer Date Recorded Unable to Pay for Housing in the Last Year 1 02/09/2024 Sex and Gender Information Value Date Recorded Sex Assigned at Not on file Gender Identity Not on file Sexual Orientation Not on file Obstetrics History Para Term AB IAB SAB Ectopic Multiple Livin g Live Births 0 0 Last Filed Vital Signs Vital Sign Reading Time Taken Comments Blood Pressure 147/65 03/22/2024 4:04 PM CDT Pulse 77 03/22/2024 4:04 PM CDT Temperature 36.8 ??C (98.2 ??F) 04/08/2023 1:33 PM CD T Respiratory Rate 18 06/27/2015 10:01 AM CDT Oxygen Saturation 94% 03/22/2024 4:04 PM CDT Inhaled Oxygen Concentration - - Weight 113.4 kg (250 lb) 05/10/2024 4:00 PM CDT Height 160 cm (5' 2.99) 05/10/2024 4:00 PM CDT Body Mass Index 44.3 05/10/2024 4:00 PM CDT Plan of Treatment Upcoming Encounters Date Type Department Care Team (Late st Contact Info) Description 06/14/2024 2:30 PM CDT Telemedicine [address] [place] [address] Cici Dean, BRASS ROLLER [address] [place] [address] 06/14/2024 3:00 PM CDT Telemedicine [address] [place] [address] Gale Gottlieb, CHARO [address] [place] [address] 07/12/2024 12:30 PM CDT Telemedicine [facility] [address] [place] [address] Cici Dean, BRASS ROLLER [address] [place] [address] Health Maintenance Due Date Last Done Comments COVID-19 vaccine series (3 - Pfizer risk series) 12/06/2020 11/08/2020, 10/15/2020 Mammogram for age 45-75 05/19/2024 05/19/20, 05/13/2022 (Completed outside of [facility]), 04/24/2021, Additional history exists Influenza for age 65+ 06/18/2024 08/25/2023 , 07/14/2022, 07/24/2021, Additional history exists Depression screening for age 12+ 02/08/2025 02/09/2024, 08/26/2021, 08/07/2020, Additional history exists Fecal testing sDNA-FIT ([place] guard) for age 45-75 03/09/2025 03/09/2022 BMI (ht and wt on same day) for age 18+ 05/10/2025 05/10/2024, 05/09/2024, 04/05/2024, Additional history exists Lipids for age 45-75 02/08/2029 02/09/2024, 03/03/2023, 02/02/2022, Additional history exists Zoster (shingles) series for age 50+ Completed 10/19/2019, 08/16/2019 Pneumococcal series for age 65+ Completed DEXA/DXA scan for age 65+ Completed 2022, 06/28/2015, 12/23/2012, Additional history exists Hepatitis C screening for ag e 18-79 Completed 12/22/2023, 05/01/2014 Procedures Procedure Name Priority Date/Time Associated Diagnosis Comments [facility] MISCELLANEOUS SENDOUT Routine 04/05/2024 9:05 AM CDT Metabolic dysfunction-associate d steatotic liver disease (MASLD) MISCELLANEOUS SEND OUT Routine 04/05/2024 9:05 AM CDT Metabolic dysfunction-associate d steatotic liver disease (MASLD) EKG 12 LEAD Routine 03/24/2024 2:56 PM CDT Medication management MI READING EKG - NO CHARGE, COMP ONLY Routine 03/24/2024 2:55 PM CDT Medication management BASIC METABOLIC PANEL Routine 03/22/2024 3:23 PM CDT Morbid obesity with BMI of 40.0-44.9, adult (HC) MAGNESIUM Routine 03/22/2024 3:23 PM CDT Morbid obesity with BMI of 40.0-44.9, adult (HC) VITAMIN D 25 (DEFICIENCY) Routine 03/22/2024 3:23 PM CDT Morbid obesity with BMI of 40.0-44.9, adult (HC) Encounter for vitamin deficiency screening VITAMIN B12 Routine 03/22/2024 3:23 PM CDT Morbid obesity with BMI of 40.0-44.9, adult (HC) Encounter for vitamin deficiency screening LIPID PANEL W REFLEX MEASURED LDL Routine 02/09/2024 1:42 PM CDT Hyperlipidemia, unspecified hyperlipidemia type ANTI HCV Routine 12/22/2023 10:38 AM WASTE RECLAIMER Enlarged liver SCAN-MAMMOGRAPHY REPORT 05/19/2023 12:00 AM CDT XR DXA BONE DENSITY 2 SITES AXIAL Routine 03/10/2023 3:34 PM CDT Menopause FECAL DNA (AKA COLOGUARD) Routine 03/09/2022 12:00 AM CDT Screening for colon cancer from Last 3 Months or Most Recently Relevant to Health Maintenance Results * [facility] SENDOUT (04/05/2024 9:05 AM CDT) [facility] COM[facility] 04/07/2024 12:07 AM CDT [facility] Comment: Test Ordered: [id number] VELARDE FibroSure(R) Plus Fibrosis Score ? 0.05 ?01 ? Reference Range: 0.00-0.21 ? Fibrosis Stage ? Comment ? 01 ? F0 - No fibrosis Steatosis Score ?0.66 ?[H ] ?01 ? Reference Range: 0.00-0.40 ? Steatosis Grade ?Comment ? 01 ?S2 - S3 ??Moderate to Severe Steatosis ? (Clinically Significant) (34-100%) VELARDE Score ? 0.36 ?[H ] ?01 ? Reference Range: 0.00-0.25 ? VELARDE Grade ? Comment ? 01 ? N1 - ??Mild VELARDE Methodology: ? Comment ? 01 ?? The analytes tested are performed by FibroSure-Specific methods. Not intended for use with other diagnostic considerations. Alpha 2-Macroglobulins, Qn ? 129 ?mg/dL ?01 ? Reference Range: 110-276 ? Haptoglobin ?181 ?mg/dL ?01 ? Reference Range: 37-355 ? Apolipoprotein A-1 ? 142 ?mg/dL ?01 ? Reference Range: 116-209 ? Bilirubin, Total ? 0.3 ?mg/dL ?01 ? Reference Range: 0.0-1.2 ? GGT ?12 ? IU/L ? 01 ? Reference Range: 0-60 ? ALT (SGPT) P5P ? 20 ? IU/L ? 01 ? Reference Range: 0-40 ? AST (SGOT) P5P ? 18 ? IU/L ? 01 ? Reference Range: 0-40 ? Cholesterol, Total ? 178 ?mg/dL ?01 ? Reference Range: 100-199 ? Glucose, Serum ? 120 ? [H ] mg/dL ?01 ? Reference Range: 70-99 ? Triglycerides ?181 ? [H ] mg/dL ?01 ? Reference Range: 0-149 ? Interpretations: ? Comment ? 01 ?? Quantitative results of 10 biochemicals in combination with age and gender, are analyzed using a computational algorithm to provide a quantitative surrogate marker (0.0-1.0) of liver fibrosis (Metavir F0-F4), hepatic steatosis (0.0-1.0, S0-S3), and Non-Alcoholic Steato-Hepatitis (VELARDE) (0.0-1.0, N0-N3). The absence of steatosis (S<0.40) precludes the diagnosis of VELARDE. Fibrosis marker: In a study of 171 Non-Alcoholic Fatty Liver Disease (NAFLD) patients where 23% had significant NAFLD fibrosis (Metavir F2-F4) and 11% had cirrhosis by liver biopsy, a fibrosis result of >0.3 yielded a sensitivity of 83% and a specificity of 78% for the detection of significant fibrosis.[1] Steatosis marker: In a population of 2997 patients, where 61% had significant steatosis (>=5%) on a liver biopsy, a steatosis score >0.4 had a sensitivity of 79% and a specificity of 50% for identification of significant steatosis.[2] VELARDE marker: In a population of 1081 NAFLD patients, where 51% had at least some VELARDE by liver biopsy, a prediction of VELARDE had a sensitivity of 72% for identifying VELARDE and a specificity of 71%.[3] Fibrosis Scoring: ?Comment ? 01 ? <=0.21 = Stage F0 - No fibrosis 0.21 - 0.27 = Stage F0 - F1 0.27 - 0.31 = Stage F1 - Portal fibrosis 0.31 - 0.48 = Stage F1 - F2 0.48 - 0.58 = Stage F2 - Bridging fibrosis with few septa 0.58 - 0.72 = Stage F3 - Bridging fibrosis with many septa 0.72 - 0.74 = Stage F3 - F4 ?>0.74 = Stage F4 - Cirrhosis Steatosis Scoring ?Comment ? 01 ? <=0.40 = S0 ??- No Steatosis (<5%) 0.40 - 0.55 = S1 ??- Mild Steatosis ?(but Clinically Significant) (5-33%) ?>0.55 = S2S3- Moderate to Severe Steatosis ?(Clinically Significant) (34-100%) VELARDE Scoring ? Comment ? 01 ? <=0.25 = N0 - No VELARDE 0.25 - 0.50 = N1 - Mild VELARDE 0.50 - 0.75 = N2 - Moderate VELARDE ?>0.75 = N3 - Severe VELARDE Limitations: ? Comment ? 01 ?? VELARDE FibroSure(R) Plus is recommended for patients with suspected non-alcoholic fatty liver disease. It is not recommended for patients with other liver diseases. It is also not recommended in patients with Gilbert Disease, acute hemolysis, acute viral hepatitis, drug induced hepatitis, genetic liver disease, autoimmune hepatitis and/or extra-hepatic cholestasis. Any of these clinical situations may lead to inaccurate quantitative predictions of fibrosis. Comment: ? Comment ? 01 ?? This test was developed and its performance characteristics determined by [facility]. It has not been cleared or approved by the Food and Drug Administration. For questions regarding this report please contact customer service at . References: 1. ??Tala Dasilva al. Diagnostic Value of Biochemical Markers (FibroTest) for the prediction of Liver Fibrosis in patients with Non-Alcoholic Fatty Liver Disease. BMC Gastroenterology 2006; 6:6. 2. ??Daisy Merrill. et al. The Diagnostic Performance of a Simplified Blood Test (SteatoTest-2) for the Prediction of Liver Steatosis. Eur J Gastroenterol Hepatol. 2019; 31:393-402. 3. ??Daisy Merrill. et al. Diagnostic performance of a new noninvasive test for nonalcoholic steatohepatitis using a simplified histological reference. Eur J Gastroenterol Hepatol. 2018 May; 30:569-577. Blood BLOOD SPECIMEN / Unknown Non-Blood / Unknown 04/05/2024 9:05 AM CDT 04/05/2024 9:07 AM CDT Narrative [facility] ([facility]) - 04/07/2024 12:07 AM CDT Performed At: [address] [id number] Leonard Monteiro MD Ph:[phone] Performed At: [address] [id number] Emery Ocampo MD Ph:[phone] Burke Nava MD LABORATORY [facility] ([facility]) [address] [place] [address] * MISCELLANEOUS SEND OUT (04/05/2024 9:05 AM CDT) TEST NAME VELARDE FibroSure Plus 04/05/2024 2:[address] [facility] SOURCE Blood 04/05/2024 2:[address] [facility] PERFORMING LAB [facility] 04/05/2024 2:[address] [facility] REFERRAL LAB TEST # [id number] 04/05/2024 2:05 PM CDT [facility] IS THIS A [facility] TEST? Yes, See [facility] Miscellaneous Sendout result 04/05/2024 2:05 PM CDT [facility] Blood BLOOD SPECIMEN / Unknown Non-Blood / Unknown 04/05/2024 9:05 AM CDT 04/05/2024 9:07 AM CDT Burke Nava MD SEND OUTS [facility] [address] [place] [address], * EKG 12 LEAD (03/24/2024 2:56 PM CDT) Yudith Fontenot MD EKG ORD * MI READING EKG - NO CHARGE, COMP ONLY (03/24/2024 2:55 PM CDT) Yudith Fontenot MD PB - PROVIDER READI NGS * VITAMIN D 25 (DEFICIENCY) (03/22/2024 3:23 PM CDT) VITAMIN D TOTAL 52.6 20.0 - 80.0 ng/mL 03/23/2024 2:54 PM CDT [facility] Blood BLOOD SPECIMEN / Unknown Venipuncture / Unknown 03/22/2024 3:23 PM CDT 03/22/2024 3:[address] [facility] - 03/23/2024 2:54 PM CDT ? Vitamin D Status Deficiency: ? <20 ng/mL Insufficiency: ?20-29 ng/mL Sufficiency: ?30-80 ng/mL Possible Toxicity: ??>80 ng/mL Based on [place] of Medicine recommendations Biotin supplements may cause clinically significant interference for this test assay. ??If interference is suspected, it is strongly recommended that biotin is discontinued for at least one week prior to retesting. Cici Dean NP SEND OUTS Performing Organization Address [facility] Co de Phone Number [facility] [address] [place] [id number], * MAGNESIUM (03/22/2024 3:23 PM CDT) Pathologist [facility] MAGNESIUM 1.8 1.6 - 2.4 mg/dL 03/23/2024 2:54 PM CDT [facility] Blood BLOOD SPECIMEN / Unknown Venipuncture / Unknown 03/22/2024 3:23 PM CDT 03/22/2024 3:24 PM CDT Cici Dean NP CHEMISTRY Performing Organization Address [facility] de Phone Number [facility] [address] [place] [address], [place] * VITAMIN B12 (03/22/2024 3:23 PM CDT) Pathologist [facility] VITAMIN B12 658 232 - 1,245 pg/mL 03/23/2024 2:54 PM CDT [facility] Blood BLOOD SPECIMEN / Unknown Venipuncture / Unknown 03/22/2024 3:23 PM CDT 03/22/2024 3:24 PM CDT Narrative [facility] - 03/23/2024 2:54 PM CDT Biotin supplements may cause clinically significant interference for this test assay. ??If interference is suspected, it is strongly recommended that biotin is discontinued for at least one week prior to retesting. Cici Dean NP CHEMISTRY Performing Organization Address [facility] Co de Phone Number [facility] [address] [place] [phone], [place] * (ABNORMAL) BASIC METABOLIC PANEL (03/22/2024 3:23 PM CDT) Pathologist [facility] SODIUM 141 136 - 145 mmol/L 03/23/2024 2:54 PM CDT [facility] POTASSIUM 4.5 3.5 - 5.1 mmol/L 03/23/2024 2:54 PM CDT [facility] CHLORIDE 107 98 - 107 mmol/L 03/23/2024 2:54 PM CDT [facility] CO2,TOTAL 22 22 - 29 mmol/L 03/23/2024 2:54 PM CDT [facility] ANION GAP 12 5 - 18 03/23/2024 2:54 PM CDT [facility] GLUCOSE 93 70 - 99 mg/dL 03/23/2024 2:54 PM CDT [facility] CALCIUM 9.2 8.8 - 10.2 mg/dL 03/23/2024 2:54 PM CDT [facility] BUN 13 8 - 23 mg/dL 03/23/2024 2:54 PM CDT [facility] CREATININE 0.84 0.50 - 0.90 mg/dL 03/23/2024 2:54 PM T [facility] BUN/CREAT RATIO 15 10 - 20 2:54 PM CDT [facility] eGFR 77(L) >90 mL/min/1.7 3m2 03/23/2024 2:54 PM CDT [facility] Comment:As of 2021, eG FR is calculated by the CKD-EPI creatinine equation without race adjustment. ??eGFR can be influenced by muscle mass, exercise, and diet. ??The reported eGFR is an estimation only and is only applicable if the renal function is stable. Blood BLOOD SPECIMEN / Unknown Venipuncture / Unknown 03/22/2024 3:23 PM CDT 03/22/2024 3:24 PM CDT Cici Dean NP CHEMISTRY [facility] [address] [place] [address], * (ABNORMAL) LIPID PANEL W REFLEX MEASURED LDL (02/09/2024 1:42 PM CDT) CHOLESTEROL,TOTAL 184 100 - 199 mg/dL 02/10/2024 12:02 AM CDT [facility] TRAL LABORATORY Comment: Cholesterol, Total Reference Ranges Desirable <200 mg/dL Borderline 200-239 mg/dL High >=240 mg/dL TRIGLYCERIDES 225(H) <150 mg/dL 02/10/2024 12:02 AM T [facility] TRAL LABORATORY HDL CHOLESTEROL 46 >40 mg/dL 12:02 AM [facility] NON-HDL CHOLESTEROL 138 <145 mg/dl 02/10/2024 12:02 AM T [facility] CHOL/HDL RATIO 4.00 <4.50 02/10/2024 12:02 AM T [facility] TRA LABORATORY LDL CHOLESTEROL 93 <=130 mg/dL 02/10/2024 12:02 AM [facility] VLDL CHOLESTEROL 45(H) <=30 mg/dL 02/10/2024 12:02 AM [facility] PROVIDER ORDERED STATUS RANDOM 02/10/2024 12:02 AM [facility] Blood BLOOD SPECIMEN / Unknown Venipuncture / Unknown 02/09/2024 1:42 PM CDT 02/09/2024 1:43 PM CDT Yudith Fontenot MD CHEMISTRY [facility] [address] [place] [address], * ANTI HCV (12/22/2023 10:38 AM WASTE RECLAIMER) HEPATITIS C ANTIBODY Non-Reacti ve Non-React anam 12/22/2023 5:49 PM WASTE RECLAIMER [facility] Comment:Please note, per www .CDC.gov: If a patient is known to be at high risk of HCV infection, or is symptomatic, and the physician's suspicion of HCV infection is high, HCV RNA testing is often employed and is of diagnostic value, even after an initial negative anti-HCV test result. Blood BLOOD SPECIMEN / Unknown Venipuncture / Unknown 12/22/2023 10:38 AM WASTE RECLAIMER 12/22/2023 10:40 AM WASTE RECLAIMER Katina HUNTER SEND OUTS [facility] [address] [place] [address], * SCAN-MAMMOGRAPHY REPORT (05/19/2023 12:00 AM CDT) Anatomical Region Laterality Modality Other Scanner OTHER * (ABNORMAL) XR DXA BONE DENSITY 2 SITES AXIAL (03/10/2023 3:34 PM CDT) Anatomical Region Laterality Modality Spine, HIPS, HIPL, HIPR Other Impressions 03/19/2023 4:45 PM CDT Osteopenia. RECOMMENDATIONS: The National Osteoporosis Foundation recommends pharmacologic treatment for patients with T-scores of -2.5 or less, patients with prior history of fragility fractures, or patients with 10-year probability of greater than 3% at hips or greater than 20% of suffering major osteoporotic fractures. Recommend continued optimization of calcium and vitamin D intake through dietary means and/or supplementation and regular exercise. Repeat scan recommended in 3-5 years. Nila Ca PA-C [facility] 03/19/2023 Narrative 03/19/2023 4:45 PM CDT For Patients: Results are automatically released to your [facility] ([employer]) account once available, in compliance with federal regulations. This means that you may see your results before your provider has had a chance to review them. Please allow 2-3 business days for your provider to comment on the results. XR DXA Bone Mineral Density (BMD) EXAM LOCATION: [address] [address] PATIENT NAME: Eliana Solomon DATE OF : 1955 EXAM DATE: 03/10/2023 REQUESTING PROVIDER: Yudith Fontenot MD GENDER AT : female HEIGHT: 5' 3 (03/03/2023) WEIGHT: ??257 lb (03/03/2023) MENOPAUSAL STATUS: Postmenopausal RACE/ETHNICITY: White RISK FACTORS: Aromatase Inhibitors (Arimidex, etc.), Family History of Osteoporosis and White Race CURRENT MEDICATION FOR BONE LOSS: NONE INDICATION: Menopause COMPARISON DATE(S): 2014 DXA scans are compared to prior studies for a patient only when the two (or more) studies were performed on the same scanner. It is not possible to compare data generated on one scanner to data from another because there are not standards in DXA equipment. This applies even if the two scanners are made by the same physician office assistant. PROCEDURE: Dual-energy x-ray absorptiometry performed with routine technique. Reporting is completed in the form of a T-score. The T-score represents the standard deviation from peak bone mass based on young healthy adult. A Z-score is used for diagnosis in premenopausal women, and for men under the age of 50. FINDINGS: RESULT LUMBAR SPINE L2 - L4 ??(EXCLUDE L1) BMD: 1.145 g/cm2 T-Score: - 0.5 Z-Score: + 0.0 Change from prior in 2015: ??Decrease 2.2%. RESULTS FEMUR Left femoral neck BMD: 0.812 g/cm2 T-Score: - 1.6 Z-Score: - 0.9 Change from prior in 2014: ??Decrease 10.9%. Right femoral neck BMD: 0.837 g/cm2 T-Score: - 1.4 Z-Score: - 0.7 Change from prior in 2015: ??Decrease 11.1%. Left hip BMD: 0.943 g/cm2 T-Score: - 0.5 Z-Score: - 0.1 Change from prior in 2015: ??Decrease 4.5%. Right hip BMD: 0.842 g/cm2 T-Score: - 1.3 Z-Score: - 0.9 Change from prior in 2015: ??Decrease 11.3%. WHO criteria: Normal: T-score at or above -1 SD Osteopenia: T-score between -1.1 and -2.4 SD Osteoporosis: T-score at or below -2.5 SD FRAX RISK CALCULATION (USED FOR OSTEOPENIA ONLY): 10-year probability of major osteoporotic fracture: 8.0%. 10-year probability of hip fracture: 0.9%. Yudith Fontenot MD DEXA * FECAL DNA (AKA COLOGUARD) (03/09/2022 12:00 AM CDT) Yudith Fontenot MD COMMUNICATION ORD from Last 3 Months or Most Recently Relevant to Health Maintenance Advance Directives * Full Code (Latest Code Status on File) Date Activated Date Inactivated Comments 10/28/2006 8:24 PM 10/29/2006 4:55 PM * Full Code Date Activated Date Inactivated Comments 10/28/2006 11:22 AM 10/28/2006 8:24 PM Care Teams [place] Relationship Specialty Start Date End Date Yudith Fontenot MD [facility] [place] [address] PCP - General Family Practice 02/04/23 Cici Dean NP [address] [place] [id number] Nurse Practitioner - Family 02/16/24
--- OUTSIDE RECORDS SUMMARY | 2024-05-24 09:50 | XMS_ITS | Referral Summary ---
Author Organization [facility] Address [address] [place] [address] Phone Care Team Providers Care Learning Center Coordinator Name Role Phone Uday Audra NASH Unavailable [phone] Stew Davey MD Unavailable [phone] Source Comments [facility] [employer] is fully rolled out on [employer]. Last update 03/22/09.[facility] Allergies Active Allergy Reactions Criticality Noted Date Comments Adhesive Rash Low 01/18/2023 Adhesive Tape Other (see comments) 10/27/2006 Blisters, paper tape ok Blisters from normal surgical tape 2001 Lisinopril Cough 06/02/2016 Penicillins Rash 12/30/2007 Sulfa Antibiotics Rash 10/07/2006 Tetanus Toxoids Other (see comments) 04/26/2019 Autoimmune response- WBCs in eyes Iahsoab-Quwlrf-Eiifc Pertussis Other (see comments) High 11/25/2009 White cells in eye auto immune reaction in eye after DT vaccine. Tetanus-Diphtheria Toxoids Td Unknown 11/25/2009 White cells [...] (600 mg) by mouth each evening. Active DULoxetine (CYMBALTA) 60 mg oral capsule Take 1 capsule (60 mg) by mouth daily. 30 capsule 02/20/2022 Active losartan (COZAAR) 100 mg oral tablet Take 1 tablet (100 mg) by mouth daily. Active tamoxifen (NOLVADEX) 20 mg oral TABS Take 1 tablet (20 mg) by mouth daily. Active allopurinol (ZYLOPRIM) 100 mg oral TABS Take 2 tablets (200 mg) by mouth daily. Active amLODIPine (NORVASC) 5 mg oral TABS Take 1 tablet (5 mg) by mouth daily. Active Vitamins A & D (VITAMIN A-49549/D-400 ORAL) Activ e Multiple Vitamin (MULTIVITAMIN ADULT ORAL) Active predniSONE (DELTASONE) 20 mg oral tablet Take 40 mg a day for 5 days, then 20 mg for 5 days then 10 mg a day for 5 days 30 tablet 02/14/2024 Active budesonide-formotero l (SYMBICORT) 160-4.5 mcg/puff inhalation inhaler Inhale 2 puffs twice daily. 1 each 11 02/14/2024 Active Active Problems Problem Noted Date Diagnosed Date Multiple persistent symptoms after COVID-19 11/19 Animal bite 04/26/2019 Hyperlipidemia 08/04/2018 Screening for osteoporosis 07/08/2015 Overview: Normal 06/2015 repeat 5-7 yrs Screening for malignant neoplasm of cervix 06/27 Morbid obesity (CMS) 04/22/2012 Acne 04/14/2012 Neck pain 11/14/2009 Other dyspnea and respiratory abnormality 2008 FH: osteoporosis 10/30/2008 Dysthymic disorder 09/05/2007 Essential hypertension 09/05/2007 Mild persistent asthma (HHS) Resolved Problems Problem Noted Date Diagnosed Date Resolved Date COVID-19 03/14/2020 03/20/2020 Sore throat 11/03/2017 04/26/2019 Last Assessment & Plan: Several day history of sore throat and mild cough. Lungs clear, no flu symptoms. Rapid strep negative. - Will send on for micro culture. - Supportive care, fluids, rest, humidified air, OTC analgesics, lozenges SALIMA (obstructive sleep apnea) 02/18/2024 Immunizations Name Administration Dates Next Due COVID-19 MRNA Vaccine ([employer]Sage/EventRegistIRNATY) suspension 11/08/2020,10/15/2020 H1N1 Influenza Vaccine- (Pre servative Free) (18+ YRS); 0.5 ml 08/29/2009 Hepatitis B (ENGERIX-B) - Ad ults 19 and Older () (Three Dose Series) 03/23/2005 INFLUENZA VACCINE - MDV (6 MONTHS-ADULT) 09/05/2015 Influenza Vaccine - (3 Years +) Trivalent 08/17/2016 Influenza Vaccine - Peds (6 - 35 months) Trivalent 07/31/2010 Influenza Vaccine - Trivalent 08/02/2018, 014 Influenza Vaccine, Unspecified 07/23/2014 Tetanus and Diphtheria Toxoi ds Adsorbed-Td (TENIVAC) 12/13/1999 Tuberculin (PPD) 02/28/2016, 2,05/19/2011,2009,05/28/2009 Social History Tobacco Use Types Packs/Day Years Used Date Smoking Tobacco: Never Smokeless Tobacco: Never Alcohol Use Standard Drinks/Week Comments No 0 (1 standard drink = 0.6 oz pur e alcohol) PHQ-2 Answer Date Recorded PHQ-2 Subtotal 0 02/18/2024 Sex and Gender Information Value Date Recorded Sex Assigned at Female 03/08/2022 12:19 PM CDT Gender Identity Female 03/08/2022 12:19 PM CDT Sexual Orientation Straight 03/08/2022 12 :19 PM CDT Last Filed Vital Signs Vital Sign Reading Time Taken Comments Blood Pressure 141/73 02/18/2024 8:27 AM CDT Pulse 77 02/18/2024 8:27 AM CDT Temperature 37.1 ??C (98.7 ??F) 02/18/2024 8 :24 AM CDT Respiratory Rate 16 12/15/2023 10:3 0 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 8 oz) 02/18/2024 8:24 AM CDT Height 160 cm (5' 3) 02/14/2024 9:09 AM CDT Body Mass Index 44.78 02/14/2024 9:09 AM CDT Plan of Treatment Not on file Procedures Procedure Name Priority Date/Time Associated Diagnosis Comments PANEL LIPID Routine 02/09/2024 1:42 PM CDT PAP TEST Routine 08/08/2019 1:26 PM CDT from Last 3 Months or Most Recently Relevant to Health Maintenance Care Teams Learning Center Coordinator Relationship Specialty Start Date End Date Audra Frye, PT [address] [place] [address] Physical Therapist Physical Therapy 02/27/22 Stew Davey MD [address] [place] [address] Pulmonary 10/25/23
--- OUTSIDE RECORDS SUMMARY | 2024-05-24 09:50 | XMS_ITS | Encounter Summary ---
Author Organization [facility] Address [address] [place] [address] Phone Care Team Providers Care Electrical Transmission Engineer Name Role Phone Audra Frye PT Unavailable [phone] Stew Davey MD Unavailable Reason for Visit * Reason Comments Establish Care Encounter Details Date Type Department Care Team (Late st Contact Info) Description 02/14/2024 9:30 AM CDT [facility] [address] [address] Stew Davey MD [address] [place] [address] [address] [place], [place] [address] Cough, unspecified type (Primary Dx) Discharge Disposition: Discharged to home or self [...] PM CDT documented as of this encounter Last Filed Vital Signs Vital Sign Reading Time Taken Comments Blood Pressure 117/71 02/14/2024 9:09 AM CDT Pulse 78 02/14/2024 9:09 AM CDT Temperature - - Respiratory Rate - - Oxygen Saturation 95% 02/14/2024 9:0 9 AM CDT room air, at rest Inhaled Oxygen Concentration - - Weight 113.5 kg (250 lb 2 oz) 02/14/2024 9:09 AM CDT Height 160 cm (5' 3) 02/14/2024 9:09 AM CDT Body Mass Index 44.31 02/14/2024 9:09 AM CDT documented in this encounter Patient Instructions * Patient Instructions* Stew Davey MD - 02/14/2024 9:30 AM CDT Take prednisone 40 mg a day for 5 days, then 20 mg for 5 days, then 10 mg for 5 days for viral induced cough Use symbicort 2 puffs as needed documented in this encounter Progress Notes * Stew Davey MD - 02/14/2024 9:30 AM CDT Patient returns for follow-up of her cough variant asthma. She had been doing extremely well and had not had any respiratory symptoms until this past winter when she developed a viral illness that led to some protracted coughing for couple weeks and eventually she ended up going to the emergency room and receiving a course of prednisone. She has a Symbicort inhaler but she did not find this was much benefit during the time when she was symptomatic with her cough. The prednisone did help somewhat. Her symptoms have now completely resolved. Of note, she really does not have any any significant problems with coughing other than when she develops of viral illness and when she does develop the postviral cough she does not have any associated wheezing. On exam her lungs are clear bilaterally. Assessment/plan: Intermittent cough related to viral respiratory illness with no symptoms in between. I think she does have some reactive airway disease and is not in need of any long-term maintenance inhalers but she does have Symbicort for as needed use when she develops a cough and if this is unsuccessful in resolving her symptoms she will take a course of prednisone at 40 mg a day for 5 days then 20 mg a day for 5 days then 10 mg a day for 5 days, assuming the symptoms are slow to resolve. She will not need regular follow-up in pulmonary clinic but will contact us if she feels she needs to be seen in the future. I have given her some prednisone for use if she develops a recurrent viralillness that leads to significant cough. 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
--- OUTSIDE RECORDS SUMMARY | 2024-05-24 09:50 | XMS_ITS | Encounter Summary ---
Author Organization [facility] Address [address] [place] [address] Phone Care Team Providers Care Elementary School Librarian Name Role Phone Audra Frye PT Unavailable [phone] Stew Davey MD Unavailable [phone] Reason for Referral * Consult/Test/Treat (Routine) - New Request Specialty Diagnoses / Procedures Referred By Contac t Referred To Contact Hyperbaric Medicine / HYPERBARIC MEDICINE Diagnoses Khadijah De La Torre MD [address] [address] Referral ID Status Reason Start Date Expiration Date V isits Requested Visits Authorized [id number] New Request 02/18/2024 02/17/2025 1 1 Scheduling Instructions Ex from 10 session HBOT 2.4 atmospheres over 12 days - see Clin Med 2020 article Reason for Visit * Reason Comments Establish Care Pedro correia Encounter Details Date Type Department Care Team (Late st Contact Info) Description 02/18/2024 8:30 AM CDT Office Visit [facility] [address] [place] [address] Khadijah Bearden MD [address] [address] Pedro CORREIA (Primary Dx); Essential hypertension; Dysthymic disorder; Other fatigue; Multiple persistent symptoms after COVID-19 Discharge Disposition: Discharged to home or self [...] CDT Temperature 37.1 ??C (98.7 ??F) 02/18/2024 8:24 AM CD T Respiratory Rate - - Oxygen Saturation - - Inhaled Oxygen Concentration - - Weight 114.7 kg (252 lb 12.8 oz) 02/18/2024 8:24 AM CDT Height - - Body Mass Index 44.78 02/14/2024 9:09 AM CDT documented in this encounter Patient Instructions * Patient Instructions* Khadijah Bearden MD - 02/18/2024 8:30 AM CDT Plan B: Look up hyperbaric oxygen in the [facility] [email or web address] Definitely take 2 caps arterosil daily for the d dimer and endothelial function. Try 3 months [email or web address] LDN - compounded 3.0 mg at sleep (pause if on a narcotic) Nattokinase - 100 mg twice daily without food (for the d-dimer) Tollo-19 - reduces residual viral activation as a herbal 3CL protease inhibitor Adrenal supplements: SLEEP Adrenal Support Plus (60 capsules) product image Adrenal Support Plus [employer] documented in this encounter Progress Notes * Khadijah Bearden MD - 02/18/2024 8:30 AM CDT New Patient Intake Subjective: Eliana Solomon is a 68 y.o. female for holistic and functional medicine initial visit for consult for LC to offer options along w what she has done Goals and intentions: interested in HBOT Current and ongoing problems: Health timeline: was well in her life, hiking, climbing, active. 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 Became disabled in the few months after. Did a [facility] LC program. Cymbalta in am, gabapentin at HS helped. Symptoms since covid - continued SOB Uses a walker to walk, stops to catch breath walking around hospital. Imbalance/ dizzyness - will lurch off to the side Loss of taste and smell slowly coming back - less adverse smell. 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 Then got a friend to move in w her. Quit APS on weekends. Cut out Wednesdays Diet: shifted to a mediterranean diet, water Gastrointenstinal: diarrhea over nothing Exercise: pilates twice weekly, PEM is ok w this. Can't work w a management trainer at [employer], gets PEM withother minimal exercise Stress: reduced stress Energy level: very reduced. FTE is reduced cw to before Supplement: afsaneh Q D FISH oil MVI Is on tamoxifen for a 5 year study Past Medical History: Diagnosis Date Dysthymic disorder 09/05/2007 Hypertension Past Surgical History: Procedure Laterality Date CHOLECYSTECTOMY LAPAROSCOPIC OTHER SURG HX OF ... C spine surgery, ~ 2004 TUBAL LIGATION Patient Active Problem List Diagnosis Mild persistent asthma (HHS) Acne Dysthymic disorder Essential hypertension FH: osteoporosis Hyperlipidemia Morbid obesity (CMS) Neck pain Other dyspnea and respiratory abnormality Screening for malignant neoplasm of cervix Screening for osteoporosis Animal bite Multiple persistent symptoms after COVID-19 Allergies Allergen Reactions Udslrpd-Bxmkvn-Fedma Pertussis Other (see comments) White cells in eye auto immune reaction in eye after DT vaccine. Adhesive Tape Other (see comments) Blisters, paper tape ok Blisters from normal surgical tape 2001 Lisinopril Cough Penicillins Rash Sulfa Antibiotics Rash Tetanus Toxoids Other (see comments) Autoimmune response- WBCs in eyes Tetanus-Diphtheria Toxoids Td Unknown White cells in eye auto immune reaction in eye after DT vaccine. 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 losartan (COZAAR) 100 mg oral tablet Take 1 tablet (100 mg) by mouth daily. tamoxifen (NOLVADEX) 20 mg oral TABS Take 1 tablet (20 mg) by mouth daily. allopurinol (ZYLOPRIM) 100 mg oral TABS Take 2 tablets (200 mg) by mouth daily. amLODIPine (NORVASC) 5 mg oral TABS Take 1 tablet (5 mg) by mouth daily. DULoxetine (CYMBALTA) 60 mg oral capsule Take 1 capsule (60 mg) by mouth daily. GABApentin (NEURONTIN) 600 mg oral tablet Take 1 tablet (600 mg) by mouth each evening. metoprolol succinate (TOPROL XL) 50 mg oral tablet 24 HR Take 1 tablet (50 mg) by mouth daily. No current facility-administered medications for this visit. Review of Systems A comprehensive review of systems was negative except for: Objective: BP (!) 141/73 Pulse 77 Temp 37.1 ??C (98.7 ??F) (Tympanic) Wt 114.7 kg (252 lb 12.8 oz) BMI44.78 kg/m?? General Appearance:alert, oriented, and no distress Musculoskeletal exam: Not examined Psychiatric exam: engaged, clear thinking, appropriate q's and clarifications Assessment: 68 y.o. female with 1. Long COVID 2. Essential hypertension 3. Dysthymic disorder 4. Other fatigue 5. Multiple persistent symptoms after COVID-19 Plan: 1.Med records reviewed 2. Resources for long COVID are given 3. Supplements reviewed and in shared decision making with supplements 4. LDN - compounded 3.0 mg at sleep Follow-up as needed. See orders in EpicCare. Total time 60 min. Counseling on the above over half. Khadijah Bearden MD 02/18/2024 08:40 documented in this encounter Plan of Treatment Scheduled Referrals Name Type Priority Associated Diagnoses Orde r Schedule REFERRAL TO HYPERBARIC MEDICINE Referral Routine Long COVID Ordered: 02/18/2024 documented as of this encounter Procedures Procedure Name Priority Date/Time Associated Diagnosis Comments PC TRIIODONTNYRONINE T3 FREE Routine 02/18/2024 9:39 AM CDT Long COVID Other fatigue PC THYROID STIMULATING HORMONE(TSH) DEMETRI Routine 02/18/2024 9:39 AM CDT Long COVID Other fatigue T4 FREE (DIRECT ANALYSIS) Routine 2023 9:39 AM CDT Long COVID Other fatigue FIBRINOGEN Routine 02/18/2024 9:39 AM CDT Long COVID Other fatigue PC LAB HEME D-DIMEN QUANT Routine 2023 9:39 AM CDT Long COVID Other fatigue DHEA SULFATE Routine 02/18/2024 9:39 AM CDT Long COVID Other fatigue DHEA SULFATE Routine 02/18/2024 9:39 AM CDT Long COVID Other fatigue documented in this encounter Results * DHEA SULFATE (02/18/2024 9:39 AM CDT) DHEA Sulfate 26 9 - 246 mcg/dL [facility] Comment: REFERENCE INTERVAL: DHEAS Access complete set of age- and/or gender-specific reference intervals for this test in the [facility] Test Directory ([employer]). Performed By: [facility] [address] [place] [address] Drainage Design Coordinator: Brandon Gallagher MD, PhD CLIA Number: [id number] Serum 02/18/2024 9:39 AM CDT 02/18/2024 1:30 PM CDT Khadijah Bearden MD LABORATORY [place] [phone], * TSH (02/18/2024 9:39 AM CDT) Pathologist [facility] TSH 4.02 0.27 - 4.20 mIU/L [facility] Blood 02/18/2024 9:39 AM CDT 02/18/2024 1:31 PM CDT Khadijah Bearden MD LABORATORY [facility] [place] [phone] * T4 FREE (DIRECT ANALYSIS) (02/18/2024 9:39 AM CDT) Pathologist [facility] T4 Free 1.1 0.9 - 1.7 ng/dL [facility] Blood 02/18/2024 9:39 AM CDT 02/18/2024 1:31 PM CDT Khadijah Bearden MD LABORATORY Performing Organization Address City/[facility]/ZIP Co de Phone Number [facility] [address] [address] * T3 FREE (02/18/2024 9:39 AM CDT) Pathologist [facility] T3 Free 3.1 2.0 - 4.4 pg/mL [facility] Serum 02/18/2024 9:39 AM CDT 02/18/2024 1:34 PM CDT Khadijah Bearden MD LABORATORY [facility] [address] [address] * D-DIMER QUANT (02/18/2024 9:39 AM CDT) Pathologist [facility] D Dimer 358 <=500 ng/mL FEU [facility] Comment:D-dimer values less than or equal to 500 ng/mL Fibrinogen Equivalent Units (FEU) may be used in conjunction with clinical pre-test probability to exclude deep vein thrombosis (DVT) and/or pulmonary embolism (PE). Blood 02/18/2024 9:39 AM CDT 02/18/2024 11:53 AM CDT Khadijah Bearden MD LABORATORY [facility] [place] [phone] * FIBRINOGEN (02/18/2024 9:39 AM CDT) [facility] Fibrinogen 342 200 - 400 mg/dL [facility] Blood 02/18/2024 9:39 AM CDT 02/18/2024 11:53 AM CDT Khadijah Bearden MD LABORATORY Performing Organization Address City/[facility] Co de Phone Number [facility] [place] [phone] * DHEA SULFATE (02/18/2024 9:39 AM CDT) [facility] DHEA Sulfate 29 9 - 246 mcg/dL [facility] Comment: REFERENCE INTERVAL: DHEAS Access complete set of age- and/or gender-specific reference intervals for this test in the [facility] Test Directory ([employer]). Performed By: [facility] [address] [place] [address] Drainage Design Coordinator: Brandon Gallagher MD, PhD CLIA Number: [id number] Serum 02/18/2024 9:39 AM CDT 02/18/2024 1:27 PM CDT Khadijah Bearden MD LABORATORY Performing Organization Address City/[facility] Co de Phone Number [facility] [address] [place] [address], documented in this encounter Visit Diagnoses Diagnosis Long COVID- Primary Essential hypertension Unspecified essential hypertension Dysthymic disorder Other fatigue Multiple persistent symptoms after COVID-19 documented in this encounter Additional Health Concerns Assessment Noted Time PHQ-9 Depression Total Score: 6 02/18/20 9:48 AM CDT PHQ-2 Depression Total Score: 0 02/18/20 9:48 AM CDT documented as of this encounter Care Teams Elementary School Librarian Relationship Specialty Start Date End Date Uday Audra, PT [address] [place] [address] Physical Therapist Physical Therapy 02/27/22 Stew Davey MD [address] [place] [address] Pulmonary 10/25/23 documented as of this encounter
--- OUTSIDE RECORDS SUMMARY | 2024-05-24 09:50 | XMS_ITS | Clinical Summary ---
Author Organization [facility] Address [address] [place] [address] Phone Care Team Providers Care Front Office Medical Assistant Name Role Phone Audra Frye PT Unavailable [phone] Stew Davey MD Unavailable [phone] Source Comments [facility] [employer] is fully rolled out on [employer]. Last update 03/22/09.[facility] Allergies Active Allergy Reactions Criticality Noted Date Comments Adhesive Rash Low 01/18/2023 Adhesive Tape Other (see comments) 10/27/2006 Blisters, paper tape ok Blisters from normal surgical tape 2001 Lisinopril Cough 06/02/2016 Penicillins Rash 12/30/2007 Sulfa Antibiotics Rash 10/07/2006 Tetanus Toxoids Other (see comments) 04/26/2019 Autoimmune response- WBCs in eyes Kbdhjzv-Rvrsxc-Syvas Pertussis Other (see comments) High 11/25/2009 White [...] daily. 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 8 oz) 02/18/2024 8:24 AM CDT Height 160 cm (5' 3) 02/14/2024 9:09 AM CDT Body Mass Index 44.78 02/14/2024 9:09 AM CDT Plan of Treatment Health Maintenance Due Date Last Done Comments Asthma Action Plan 1957 CT Colonography 1957 Dental Oral Exam 1957 Dental Prophylaxis 1957 Dental X-Ray: Bitewings 1957 FIT/Cologuard 1957 Hepatitis C Screening 1957 Sigmoidoscopy 1957 iFOB/FIT 1957 Periodontal Maintenance 1971 HEALTH MAINTENANCE PROTOCOL 1976 Imm: DTaP/Tdap (2 - Tdap) 01/10/2000 12/13/1999 Imm: HepB (2 of 3 - 19+ 3-dose series) 04/20/2005 03/23/2005 Breast Cancer Screening 08/02/2020 08/02/2018 Imm: COVID-19 (3 - Pfizer risk series) 12/06/2020 11/08/2020, 10/15/2020 Osteoporosis Screening (Dexa Scan) 2022 PREVENTATIVE VISIT 02/02/2023 02/02/2022, 08/07/2020 Imm: Flu (#1) 06/18/2024 07/14/2022, 1004/2021, 08/07/2020, Additional history exists Depression Management 08/20/2024 02/18/2024 Colonoscopy 12/07/2024 12/07/2014, 11/10/2011 Colorectal Cancer Screening 12/07/2024 Asthma Control Test 02/13/2025 02/14/2024 Lipid Screening 02/08/2029 02/09/2024, 0504/2023, 02/02/2022, Additional history exists Cervical Cancer Screening Age 30-65 Discontinued 08/08/2019 Imm: Zoster Completed 10/19/2019, 08/16/2019 Imm: Pneumonia greater than 65 years Completed 03/03/2023 Imm: HPV Aged Out No longer eligi ble based on patient's age to complete this topic Imm: HepA Aged Out No longer eligi ble based on patient's age to complete this topic Imm: Hib Aged Out No longer eligi ble based on patient's age to complete this topic Imm: Meningitis Aged Out No longer el igible based on patient's age to complete this topic Procedures Procedure Name Priority Date/Time Associated Diagnosis Comments PANEL LIPID Routine 02/09/2024 1:42 PM CDT PAP TEST Routine 08/08/2019 1:26 PM CDT from Last 3 Months or Most Recently Relevant to Health Maintenance Care Teams Front Office Medical Assistant Relationship Specialty Start Date End Date Audra Frye, PT [address] [place] [address] Physical Therapist Physical Therapy 02/27/22 Stew Davey MD [address] [place] [address] Pulmonary 10/25/23
--- NOTE | 2024-05-24 10:15 | CRLHL7_ITS ---
For Patients: As a result of the Century Cures Act, medical imaging exams and procedure reports are released immediately into your electronic medical record. You may view this report before your referring provider. If you have questions, please contact your health care provider. BILATERAL SCREENING MAMMOGRAM WITH COMPUTER-AIDED DETECTION AND TOMOSYNTHESIS TECHNIQUE: CC and MLO views were obtained. These mammographic images have been obtained using full-field digital technique. These mammographic images were interpreted with the benefit of computer-aided detection. Breast Tomosynthesis was used in this interpretation. COMPARISON FILM: 05/19/23, 05/13/22, 04/24/21. FINDINGS: There are scattered areas of fibroglandular density IMPRESSION: There is no radiographic evidence for malignancy. ASSESSMENT: BI-RADS Category 2: Benign RECOMMENDATION: Routine screening mammogram in 1 year. A lay language report of this examination will be provided to the patient. Tigre Hankins M.D. Diagnostic Radiologist [email or web address] HUGO/Dictated by: Tigre Hankins MD @ 05/25/2024 9:36:00 AM (Electronically Signed)
== END 2024-05-24 09:48 | disposition home or self-care (01) ==
LOC: MAMMO 09:48
PROVIDERS: PCP Family Medicine; Visit Provider Surgery
DX: Z12.31 Encounter for screening mammogram for malignant neoplasm of breast (principal)
CPT/HCPCS: 77063; 77067

== ENCOUNTER 2024-12-04 14:04 | Outpatient (CLI) | payer OTHER, SELFPAY ==
--- NOTE | 2024-12-04 14:30 | CRLHL7_ITS ---
For Patients: As a result of the 21st Century Cures Act, medical imaging exams and procedure reports are released immediately into your electronic medical record. You may view this report before your referring provider. If you have questions, please contact your health care provider. BILATERAL BREAST MRI WITHOUT AND WITH GADOLINIUM CLINICAL HISTORY: 69-year-old female here for high-risk screening. INDICATION FOR BREAST MRI: Screening breast MRI in this high-risk woman. COMPARISON STUDIES: Mammogram 05/24/2024. MRI 11/24/2023. CONTRAST: 20 cc Dotarem. TECHNIQUE: The patient was positioned prone using a breast coil. Multiple imaging sequences were obtained using 1-1.5 mm thick slices with no gap. The image sequences include T2-weighted STIR in the axial plane, T1-weighted nonfat-saturated gradient echo in the axial plane, pre- and post-contrast T1-weighted FLASH 3D with fat suppression in the axial plane, and T1-weighted FLASH high-resolution 3D with fat suppression in the sagittal plane. Image post-processing was performed on a [employer] workstation. Complex 3D rendering including maximum intensity projections (MIPS) and volumetric renderings were obtained to optimize visualization of the extent of pathology and relationship to the nipple, skin, and chest wall. This aids in determining feasibility of breast conservation surgery. Subtraction, multiplanar reconstruction, mean curve determination, and angiogenesis mapping were also performed. The study was technically adequate. FINDINGS: Amount of Fibroglandular Tissue: Scattered fibroglandular tissue. Breast Background Enhancement: Moderate. RIGHT/LEFT Breast: There is significant motion of the RIGHT breast that limits evaluation. There is no suspicious enhancement in either breast. Lymph Nodes: There are no morphologically abnormal axillary lymph nodes. IMPRESSIONS AND RECOMMENDATIONS: Significant motion of the RIGHT breast limits evaluation. No MRI findings for malignancy in either breast. No morphologically abnormal axillary lymph nodes. Recommend continuing with yearly screening mammography. If screening MRIs are felt to be indicated, recommend that these be offset at six-month intervals with the screening mammograms. BI-RADS Category 2: Benign Jami Bearden M.D. Diagnostic/Breast Radiologist [email or web address] ALEXIS/luz escobar/Dictated by: Jami Bearden MD @ 12/05/2024 8:49:00 AM (Electronically Signed)
== END 2024-12-04 14:05 | disposition home or self-care (01) ==
PROVIDERS: PCP Family Medicine; Visit Provider Surgery
DX: Z12.39 Encounter for other screening for malignant neoplasm of breast (principal); Z91.89 Other specified personal risk factors, not elsewhere classified
CPT/HCPCS: 77049; A9575

== ENCOUNTER 2025-01-22 15:12 | Outpatient (RCR) | payer OTHER, SELFPAY | END 2025-07-21 23:59 | disposition home or self-care (01) | LOC: CCIC 15:12 | PROVIDERS: PCP Family Medicine; Visit Provider Physician Assistant | DX: Z12.39 Encounter for other screening for malignant neoplasm of breast (principal); Z15.01 Genetic susceptibility to malignant neoplasm of breast; Z79.810 Long term (current) use of selective estrogen receptor modulators (SERMs) | CPT/HCPCS: 99213; G0463 ==

== ENCOUNTER 2025-05-28 09:46 | Outpatient (CLI) | payer OTHER, SELFPAY ==
--- NOTE | 2025-05-28 10:15 | CRLHL7_ITS ---
For Patients: As a result of the Century Cures Act, medical imaging exams and procedure reports are released immediately into your electronic medical record. You may view this report before your referring provider. If you have questions, please contact your health care provider. INDICATION: BILATERAL SCREENING MAMMOGRAM, ASYMPTOMATIC 70 Y/O FEMALE COMPARISON: 05/24/2024, 05/19/2023, 05/13/2022 TECHNIQUE: Digital mammogram in CC and MLO projections including computer-aided detection (CAD) and tomosynthesis. BREAST COMPOSITION: The breasts are heterogeneously dense, which may obscure small masses. FINDINGS: No suspicious findings. ASSESSMENT: BI-RADS 2 Benign RECOMMENDATION: Annual screening mammogram. A lay language report of this examination will be provided to the patient. Dictated by: Tigre Hankins MD @ 05/28/2025 10:37:59 (Electronically Signed)
== END 2025-05-28 09:47 | disposition home or self-care (01) ==
LOC: MAMMO 09:47
PROVIDERS: PCP Family Medicine; Visit Provider Internal Medicine Hematology & Oncology
DX: Z12.31 Encounter for screening mammogram for malignant neoplasm of breast (principal); R92.333 Mammographic heterogeneous density, bilateral breasts
CPT/HCPCS: 77063; 77067